=== PATIENT | male | born 2005 | race Caucasian/White ===

== ENCOUNTER 2025-02-02 20:02 | Emergency (ER) | payer BC, SELFPAY ==
[2025-02-02 20:10] VITALS: BP 151/89; PULSE 102; TEMP 36.4; O2SAT 100; BMI 24.4
--- NOTE | 2025-02-02 20:22 | ED_ITS ---
HPI HPI - General Adult General Chief complaint: Headache Stated complaint: HEADACHE Time Seen by Provider: 02/02/25 20:03 Source: patient Mode of arrival: walk-in Limitations: no limitations History of Present Illness HPI narrative: Patient is a 19-year-old male who states he has been having migraine headaches for the last year and a half. He presents to the ER with a breakthrough heada bradley that was unrelieved with Imitrex x 2 at home. He states he can typically manage the migraines at home and has never needed to come to the emergency department previously for management of his pain. He is noted to have an upcoming order for an MRI next month, he states he has never had imaging of his brain. His PCP has been managing the migraine headaches at home for him. He denies any fevers, upper respiratory symptoms, neck pain, peripheral paresthesias. He reports 1 episode of vomiting. Related Data Home Medications ?Medication ?Instructions ?Recorded ?Confirmed sumatriptan succinate 100 mg tablet 100 mg PO Q2H PRN migraine headache 02/02/25 02/02/25 topiramate 25 mg tablet 50 mg PO QDAY 02/02/25 02/02/25 Previous Rx's ?Medication ?Instructions ?Recorded diphenhydramine HCl 25 mg capsule 25 mg PO Q6H PRN headache #20 caps 02/02/25 (Benadryl) ketorolac 10 mg tablet 10 mg PO TID PRN pain #10 tabs 02/02/25 metoclopramide HCl 10 mg tablet 10 mg PO Q6H PRN nausea and 02/02/25 (Reglan) vomiting #12 tabs Allergies Allergy/AdvReac Type Severity Reaction Status Date / Time No Known Drug Allergies Allergy Verified 02/02/25 20:08 Opioid HPI Opioid Management Most Recent Opioid Data: Last Pain Scale 10 02/02/25 20:30 02/02/25 Review of Systems ROS Constitutional Denies: fever or chills Eyes Denies: change in vision Ears, nose, mouth, and throat Denies: throat pain or nasal congestion Respiratory Denies: shortness of breath or cough Gastrointestinal Reports: nausea and vomiting Integumentary/Breast Denies: rash Neurological Reports: headache; Denies: numbness in extremities or weakness in extremities Hematologic/Lymphatic Denies: easy bruising or easy bleeding PFS PFS Social History Little interest or pleasure in doing things: not at all Feeling down, depressed, or hopeless: not at all Exam Narrative Exam Narrative: Gen.: Awake, alert, in no distress Head: Normocephalic, atraumatic ENT: Moist mucous membranes, no nuchal rigidity or meningismus Respiratory: No respiratory distress, lungs clear bilaterally Cardio: Regular rate and rhythm Extremities: Moves extremities equally Psych: Normal mood and affect Neuro: No focal neuro deficit Skin: Warm, dry, intact Constitutional Vital Signs, click to edit/add: Last Vital Signs Temp 97.6 F 02/02/25 20:10 Pulse 102 H 02/02/25 20:10 Resp 18 02/02/25 20:10 BP 151/89 H 02/02/25 20:10 Pulse Ox 100 02/02/25 20:10 O2 Del Method Room Air 02/02/25 20:10 Course Vital Signs Vital signs: Vital Signs Temperature 97.6 F 02/02/25 20:10 Pulse Rate 102 H 02/02/25 20:10 Respiratory Rate 18 02/02/25 20:10 Blood Pressure 151/89 H 02/02/25 20:10 Pulse Oximetry 100 02/02/25 20:10 Oxygen Delivery Method Room Air 02/02/25 20:10 Temperature 97.6 F 02/02/25 20:10 Pulse Rate 102 H 02/02/25 20:10 Respiratory Rate 18 02/02/25 20:10 Blood Pressure 151/89 H 02/02/25 20:10 Pulse Oximetry 100 02/02/25 20:10 Oxygen Delivery Method Room Air 02/02/25 20:10 Medical Decision Making [facility] Narrative Medical decision making narrative: I discussed with the patient that if he is having continuous migraines for the last 18 months, up to twice a week, he should have screening imaging to make sure that there is no other acute pathology causing his headaches. He is agreeable to a CT scan and will follow-up for his MRI as scheduled. Patient was ordered to have IV fluids, Reglan, Benadryl, Toradol. CT is unremarkable. Patient reports feeling much better. He was given Fioricet in the ER and 1 to go for home. Follow-up for MRI as scheduled and return to [facility] emergency department if symptoms change or worsen SUPERVISED APC VISIT, PHYSICIAN ATTESTATION: Based on the medical record the care appears appropriate. ? Medical Records Medical records reviewed: Yes I reviewed the patient's medical records Discharge Plan Discharge Chief Complaint: Headache Clinical Impression: Headache Patient Disposition: Home, Self-Care Time of Disposition Decision: 21:49 Condition: Good Prescriptions / Home Meds: New diphenhydramine HCl [Benadryl] 25 mg capsule 25 mg PO Q6H PRN (Reason: headache) Qty: 20 0RF ketorolac 10 mg tablet 10 mg PO TID PRN (Reason: pain) Qty: 10 0RF metoclopramide HCl [Reglan] 10 mg tablet 10 mg PO Q6H PRN (Reason: nausea and vomiting) Qty: 12 0RF No Action sumatriptan succinate 100 mg tablet 100 mg PO Q2H PRN (Reason: migraine headache) topiramate 25 mg tablet 50 mg PO QDAY Print Language: Macedonian Instructions: Acute Headache (ED) Referrals: Physician,Non-Staff, [Physician] - 1 week Discharge Date/Time: 02/02/25 22:08
[2025-02-02] MEDS: 0.9 % SODIUM CHLORIDE 1,000 ML 1000 ML IV (20:35)
[2025-02-02] MEDS: DIPHENHYDRAMINE HCL 50 MG/ML VIAL 25 MG IVP (20:36)
[2025-02-02] MEDS: KETOROLAC TROMETHAMINE 30 MG/ML VIAL IVP (20:36)
[2025-02-02] MEDS: METOCLOPRAMIDE HCL 10 MG/2 ML VIAL IVP (20:36)
[2025-02-02] MEDS: BUTALB/ACETAMINOPHEN/CAFFEINE 50-325-40MG TABLET 1 TAB PO ×2 (21:59→22:03)
== END 2025-02-02 22:08 | disposition home or self-care (01) ==
PROVIDERS: Emergency Provider Emergency Medicine; PCP Nurse Practitioner
DX: R51.9 Headache, unspecified (principal)
CPT/HCPCS: 70450; 96361; 96374; 96375; 99285; J1200; J1885; J2765

== ENCOUNTER 2025-02-10 09:43 | Outpatient (OUT) | payer BC, SELFPAY ==
--- NOTE | 2025-02-10 09:47 | MR_ITS ---
The [address] [address] Patient Name: KEV GÓMEZ MRN: [id number] date: 2005 Sex: M Assigned Patient Location: MRI Current Patient Location: MRI Accession/Order Number: [id number] Exam Date: 02/10/2025 10:59 Report Date: 02/10/2025 11:17 At the request of: COLTON ANDINO Procedure: MR head/brain wo con EXAMINATION: MRI OF THE BRAIN WITHOUT CONTRAST CLINICAL HISTORY: Intractable Chronic Migraine COMPARISON: CT 02/02/2025 TECHNIQUE: Multiecho, multiplanar imaging of the brain was performed without enhancement. The ventricles are normal in size and position. A single tiny focus of increased T2 and FLAIR signal seen within the subcortical white matter the right frontal lobe. This is nonspecific though can be seen with migraine headaches. There are no additional areas of abnormal signal intensity within the supra- or infratentorial brain. No restricted diffusion is identified to suggest a recent ischemic event. There are no extra-axial collections or mass effect. There is minimal left maxillary and ethmoid mucosal thickening. MR/MR head/brain wo con IMPRESSION: MINIMAL NONSPECIFIC RIGHT FRONTAL WHITE MATTER CHANGE. NO OTHER ACUTE INTRACRANIAL FINDINGS. Impression dictated by: Silvia Garcia M.D.02/10/2025 11:17 AM Dictation Location: [place] [address] Electronically authenticated by: [id number] Y Date: 02/10/2025 11:17
--- OUTSIDE RECORDS SUMMARY | 2025-02-10 09:47 | XMS_ITS | CCD ---
Author Organization 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 Name Role Phone PHYSICIAN, DEFAULT Admitting Unavailable PHYSICIAN, DEFAULT Attending Unavailable BILL HURT Admitting Unavailable BLU, BILL Weinstein Attending Unavailable RADHAMES ORTIZ Referring Unavailable RAFITA MARCH Primary Care Unavailable DC Procedure Practitioner Unavailab BILL Marte Surgeon Unavailable DC Procedure Practitioner Unavailab SANDEE Jarrell Surgeon Unavailable BILL HURT Admitting Unavailable BILL HURT Attending Unavailable BILL HURT Referring Unavailable RAFITA MARCH Primary Care Unavailable RAFITA MARCH Primary Care Unavailable STACEY, DR RAFITA Flood Attending Unavailable MARCH, DR RAFITA Flood Primary Care Unavailable MARCH, DR RAFITA Flood Admitting Unavailable MARCH, DR RAFITA Flood Admitting Unavailable MARCH, DR RAFITA Flood Attending Unavailable MARCH, DR RAFITA Flood Consulting Unavailable MARCH, DR RAFITA Flood Primary Care Unavailable ZIEBER, DR MANDEEP Bridges Consulting Unavailable KIN CHRISTIANSON Admitting Unavailable MISC, DR BAKER Primary Care Unavailable MEGHAN KIN Attending Unavailable Tyson Pires Unavailable Sigrid Lee Unavailable Cassandra Allen Unavailable NONE, XXXX Primary Care Physician Unavailab Ally Zafar Unavailable MD Rafita March Primary Care Provider DO Yakov Sanchez Attending Provider Yakov Sanchez Attending Unavailable Yakov Sanchez Admitting Unavailable Rafita March Primary Care Unavailable Natacha Henriquez Primary Care Physician [phone] Natacha Henriquez MD Unavailable Lorrie Toussaint DO Unavailable Nolvia Nice NP Unavailable Provider, None Primary Care Unavailable Trini Hernandez Attending Unavailable Rashard Freeman Attending Unavailable Natacha Henriquez Attending Unavailable Natacha Henriquez Attending Unavailable Natacha Henriquez Attending Unavailable Trini Hernandez Admitting Unavailable Trini Hernandez Attending Unavailable Unallocated MD, Noms Provider Primary Care Provi dena NOLVIA NICE Attending Unavailable LORRIE TOUSSANIT Attending Unavailable NATACHA HENRIQUEZ Referring Unavailable LORRIE TOUSSAINT Attending Unavailable NOLVIA NICE Attending Unavailable Allergies Allergy Classification Reported Allergen(s) Allergy Type Date of Onset Reaction(s) Facility (2 sources) bee venom Drug allergy (disorder) 0 [facility] Repository (5 sources) Bee/Wasp/Ant venom Propensity to adverse reactions Unknown [facility] Other (5 sources) Seasonal allergy Propensity to adverse reactions Unknown [facility] Other (2 sources) venom-honey bee; Translations: [venom-honey bee] Allergy to substance 1 Anaphylaxis [facility] (8 sources) Honey bee venom Allergy to substance 4 Unknown [facility] (1 source) No Known Medication Allergies; Translations: [No Known Medication Allergies] Propensity to adverse reactions (disorder) [facility] Repository Medications Current Medications Medication Drug Class(es) Dates Sig (Normalized) Sig (Original) amitriptyline hydrochloride 25 mg oral tablet (14 sources) Tricyclic Antidepressant Start: 09-22-2024 End: 01-21-2025 take 2 tablets by mouth once at bedtime amitriptyline (Elavil) 25 MG tablet Indications: Intractable chronic migraine without aura and without status migrainosus (CMS/HCC) 2 po q hs 90 tablet 1 09/22/2024 01/21/2025 Discontinued (Therapy completed) Start: 09-01-2024 amitriptyline Oral, Refills(s) 0 Start Date: 09/01/24 Status: Ordered Start: 07-21-2024 End: 07-21-2025 take 1 tablet by mouth once daily amitriptyline (Elavil) 25 MG tablet Indications: Intractable chronic migraine without aura and without status migrainosus (CMS/HCC) , Tension headache Take 1 tablet (25 mg) by mouth Daily 90 tablet 1 09/02/2024 09/22/2024 Discontinued (Reorder) amoxicillin 875 mg oral tablet (2 sources) Penicillin-class Antibacterial Start: 05-04-2023 take 1 tablet by mouth every twelve hours Amoxicillin 875 MG 1 tablet Orally Twice a day for 10 day(s) Apr, Active Start: 12-03-2022 take 1 capsule by [facility] every eight hours Amoxicillin 500 MG 1 capsule Orally three times a day for 10 day(s) Nov, Active brompheniramine maleate 0.4 mg/ml / dextromethorphan hydrobromide 2 mg/ml / pseudoephedrine hydrochloride 6 mg/ml oral solution (2 sources) alpha-Adrenergic Agonist, Uncompetitive T-prajfh-E-aspartate Receptor Antagonist, Sigma-1 Agonist Start: 10-22-2024 End: 10-27-2024 take 10 mL by mouth four times daily Bromfed DM oral syrup 10 mL, Oral, QID for 5 day(s), 200 mL, Refill(s) 0, [facility]/pharmacy #[id number], 182, cm, 10/22/24 10:47:00 EST, Height/Length Dosing, 87.1, kg, 10/22/24 10:47:00 EST, Weight Dosing Start Date: 10/22/24 Stop Date: 10/27/24 Status: Ordered ciprofloxacin 2 mg/ml otic solution (1 source) Quinolone Antimicrobial Start: 01-26-2022 Ciprofloxacin HCl 0.2 % 1-2 drops into affected ear Otic every 12 hrs for 7 day(s) Jan, Active diclofenac sodium 0.01 mg/mg topical gel (1 source) Nonsteroidal Anti-inflammatory Drug Start: 12-25-2021 Diclofenac Sodium 1 % apply 1-2 grams to left wrist Externally BID for 30 days Dec, Active fluticasone propionate 0.05 mg/actuat metered dose nasal spray (1 source) Corticosteroid Start: 01-26-2022 take 1 spray(s) nasal route once daily Fluticasone Propionate 50 MCG/ACT 1 spray in each nostril Nasally Once a day for 14 day(s) Jan, Active Ibuprofen (2 sources) Nonsteroidal Anti-inflammatory Drug Ibuprofen Active methylPREDNISolone (5 sources) Corticosteroid Start: 01-21-2025 End: 01-28-2025 methylPREDNISolone (Medrol Dospak) 4 MG tablets Indications: Intractable chronic migraine without aura and without status migrainosus (CMS/HCC) Follow schedule on package instructions 21 tablet 01/21/2025 01/28/2025 Active Start: 06-13-2020 Depo-Medrol 80 mg Jun, 80 mg ondansetron 4 mg disintegrating oral tablet (2 sources) Serotonin-3 Receptor Antagonist Start: 01-21-2025 ondansetron ODT (Zofran-ODT) 4 MG disintegrating tablet Indications: Intractable chronic migraine without aura and without status migrainosus (CMS/HCC) Take one tab every 8 hours as needed for migraine associated nausea and vomiting 20 tablet 01/21/2025 Active Start: 01-21-2025 ondansetron OD T (Zofran-ODT) 4 MG disintegrating tablet Indications: Intractable chronic migraine without aura and without status migrainosus (CMS/HCC) Take one tab every 8 hours as needed for migraine associated nausea and vomiting 20 tablet 01/21/2025 Active predniSONE 20 mg oral tablet (2 sources) Start: 10-22-2024 End: 10-27-2024 take 2 tablets by mouth once daily at mealtime predniSONE 20 mg Tab 40 mg = 2 tab(s), Oral, Daily, with food or milk, X 5 day(s), # 10 tab(s), Refills(s) 0, Pharmacy: [facility]/pharmacy #[id number], 182, cm, 10/22/24 10:47:00 EST, Height/Length Dosing, 87.1, kg, 10/22/24 10:47:00 EST, Weight Dosing Start Date: 10/22/24 Stop Date: 10/27/24 Status: Ordered SUMAtriptan 100 mg oral tablet (20 sources) Serotonin-1b and Serotonin-1d Receptor Agonist Start: 10-15-2024 End: 11-24-2024 SUMAtriptan (Imitrex) 100 MG tablet Indications: Intractable chronic migraine without aura and without status migrainosus (CMS/HCC) 1 at the onset of the migraine and may repeat in 2 hours if needed max 2 days per week 2 doses per day 9 tablet 5 11/24/2024 Active Start: 09-22-2024 End: 01-21-2025 SUMAtriptan (Imitrex) 20 MG/ ACT nasal spray Indications: Intractable chronic migraine without aura and without status migrainosus (CMS/HCC) 1 spray in 1 nostril at onset of migraine may repeat in other nostril in 2 hours if needed max 2 days per week. 6 each 2 09/22/2024 01/21/2025 Discontinued (Therapy completed) Start: 09-02-2024 SUMAtriptan (I mitrex) 100 MG tablet Indications: Intractable chronic migraine without aura and without status migrainosus (CMS/HCC) , Tension headache 1 at the onset of the migraine and may repeat in 2 hours if needed max 2 days per week 2 doses per day 9 tablet 2 09/02/2024 Active Start: 09-01-2024 sumatriptan Or al, Refills(s) 0 Start Date: 09/01/24 Status: Ordered Start: 07-21-2024 SUMAtriptan (I mitrex) 100 MG tablet Indications: Intractable chronic migraine without aura and without status migrainosus (CMS/HCC) , Tension headache 1 at the onset of the migraine and may repeat in 2 hours if needed max 2 days per week 2 doses per day 9 tablet 2 07/21/2024 Active Start: 07-21-2024 SUMAtriptan (I mitrex) 100 MG tablet Indications: Intractable chronic migraine without aura and without status migrainosus (CMS/HCC) , Tension headache 1 at the onset of the migraine and may repeat in 2 hours if needed max 2 days per week 2 doses per day 9 tablet 2 07/21/2024 Active tiZANidine 4 mg oral tablet (5 sources) Central alpha-2 Adrenergic Agonist Start: 11-24-2024 tiZANidine (Zanaflex) 4 MG tablet Indications: Intractable chronic migraine without aura and without status migrainosus (CMS/HCC) Take 1/2-1 at bedtime 30 tablet 5 11/24/2024 Active topiramate 25 mg oral tablet (4 sources) Start: 01-21-2025 End: 01-21-2026 take 1 tablet by mouth once at bedtime topiramate (Topamax) 25 MG tablet Indications: Intractable chronic migraine without aura and without status migrainosus (CMS/HCC) Topamax tablet 25mg every hs X1 week, then 2 pills every hs X1 week ,then 3 pills po every hs X1 week , then go to the 100 mg 42 tablet 01/21/2025 01/21/2026 Active Start: 01-21-2025 topiramate (To pamax) 100 MG tablet Indications: Intractable chronic migraine without aura and without status migrainosus (CMS/HCC) Take one tab at bedtime after titrated up 30 tablet 2 01/21/2025 Active Start: 01-21-2025 topiramate (To pamax) 100 MG tablet Indications: Intractable chronic migraine without aura and without status migrainosus (CMS/HCC) Take one tab at bedtime after titrated up 30 tablet 2 01/21/2025 Active traMADol hydrochloride 50 mg oral tablet (1 source) Opioid Agonist Start: 11-07-2021 take 50 mg by mouth every four hours Tramadol Active 50 MG PO Q4H 20 7 November 07, 2021 1:00am ubrogepant 100 mg oral tablet (5 sources) Start: 11-24-2024 Ubrogepant (Ubrelvy) 100 MG tablet Indications: Intractable chronic migraine without aura and without status migrainosus (CMS/HCC) Take one tab at migraine onset, may repeat in 2 hours if needed 10 tablet 5 11/24/2024 Active Completed/Discontinued Medications Medication Drug Class(es) Dates Sig (Normalized) Sig (Original) ISOtretinoin 30 mg oral capsule (1 source) Retinoid Start: 11-06-2019 End: 11-07-2021 take 1 capsule by mouth twice daily Isotretinoin (Absorica) 30 mg capsule Discontinued 30 MG PO Twice daily November 06, 2019 1:00am November 07, 2021 7:56am Problems Active Problems Problem Classification Problem Date Documented Date Episodic/Chronic Headache; including migraine (12 sources) Chronic intractable migraine without aura; Translations: [Chronic migraine without aura, intractable, without status migrainosus] 09-22-2024 Chronic Joint disorders and dislocations; trauma-related (5 sources) Patellofemoral syndrome of right knee; Translations: [Patellofemoral disorders, right knee] Chronic Malaise and fatigue (4 sources) Other fatigue; Translations: [Fatigue] Onset: 04-03-2022 10-01-2023 Episodic Open wounds of extremities (1 source) Laceration of hand without foreign body; Translations: [Laceration without foreign body of unspecified hand, initial encounter] Onset: 11-05-2023 Episodic Other lower respiratory disease (1 source) Cough; Translations: [Acute cough] Onset: 10-22-2024 Episodic Other lower respiratory disease (1 source) Dyspnea; Translations: [Shortness of breath] Onset: 10-22-2024 Episodic Other nervous system disorders (6 sources) Circadian rhythm sleep disorder of shift work type; Translations: [Circadian rhythm sleep disorder, shift work type] 09-22-2024 Chronic Other nutritional; endocrine; and metabolic disorders (3 sources) Overweight in adulthood with body mass index of 25 or more but less than 30; Translations: [Body mass index (BMI) 27.0-27.9, adult] Onset: 10-22-2024 09-01-2024 Episodic Other upper respiratory disease (3 sources) Seasonal allergy 10-01-2023 Chronic Other upper respiratory infections (11 sources) Acute recurrent maxillary sinusitis; Translations: [Acute pharyngitis, unspecified] Onset: 03-28-2022 Episodic Residual codes; unclassified (1 source) Past history of procedure; Translations: [Other specified postprocedural states] 11-07-2021 Episodic Residual codes; unclassified (6 sources) Sleep deprivation; Translations: [Sleep deprivation] 09-22-2024 Episodic Residual codes; unclassified (4 sources) Inadequate sleep hygiene; Translations: [Inadequate sleep hygiene] 07-21-2024 Episodic Unclassified (1 source) INSTABILITY OF RIGHT SHOULDER BOBBY Onset: 04-03-2018 Unclassified (1 source) INSTABILITY OF RIGHT SHOULDER JOINT Onset: 04-03-2018 Unclassified (3 sources) CONTACT W/AND (SUSP) EXPOS COVID-19; Translations: [CONTACT W/AND (SUSP) EXPOS COVID-19] Onset: 09-08-2021 Unclassified (2 sources) Body mass index 20-24 - normal 01-20-2023 Unclassified (1 source) Encounter for immunization; Translations: [Encounter for immunization] Onset: 08-12-2023 Unclassified (3 sources) Patient encounter status 11-21-2023 Past or Other Problems Problem Classification Problem Date Documented Date Episodic/Chronic Headache; including migraine (2 sources) Chronic daily headache; Translations: [Chronic daily headache] 07-21-2024 Episodic Other connective tissue disease (1 source) Incomplete rotator cuff tear or rupture of right shoulder, not specified as traumatic; Translations: [INCOMPLETE ROTATR-CUFF TEAR/RUPTR OF R SHOULDER, NOT TRAUMA] Onset: 04-03-2018 Episodic Other connective tissue disease (1 source) Impingement syndrome of right shoulder; Translations: [IMPINGEMENT SYNDROME OF RIGHT SHOULDER] Onset: 04-03-2018 Episodic Other connective tissue disease (2 sources) Ganglion, left wrist Onset: 10-18-2021 Resolved: 12-25-2021 Episodic Other non-traumatic joint disorders (4 sources) Other instability, right shoulder; Translations: [OTHER INSTABILITY, RIGHT SHOULDER] Onset: 04-03-2018 Episodic Other non-traumatic joint disorders (2 sources) Pain in left wrist Onset: 10-18-2021 Resolved: 12-25-2021 Episodic Other skin disorders (2 sources) Localized swelling, mass and lump, left upper limb Onset: 10-18-2021 Resolved: 12-25-2021 Episodic Otitis media and related conditions (2 sources) Unspecified perforation of tympanic membrane, right ear; Translations: [Other acute nonsuppurative otitis media, bilateral] Onset: 01-26-2022 Resolved: 01-26-2022 Episodic Residual codes; unclassified (1 source) Other specified postprocedural states Onset: 12-25-2021 Resolved: 12-25-2021 Episodic Sprains and strains (1 source) Superior glenoid labrum lesion of right shoulder, initial encounter; Translations: [SUPERIOR GLENOID LABRUM LESION OF RIGHT SHOULDER, INIT] Onset: 04-03-2018 Episodic Unclassified (1 source) CONTACT W/AND (SUSP) EXPOS COVID-19; Translations: [CONTACT W/AND (SUSP) EXPOS COVID-19] Onset: 09-04-2021 Results Test Name Value Interpretation Reference Range Facility Ambulatory Visit Summaryon 0 01-16-2025 Ambulatory Visit Summary Ambulatory Visit Summary MARCO GÓMEZ :2005 Visit Date:01/16/2025 Ambulatory Visit Instructions Your Diagnosis Skin rash, Skin rash Your Care Team Attending Physician - Pete HERNANDEZ, Rashard Fajardo Primary Care Physician - Natacha Pringle This Is Your Medications List cephalexin (Keflex 500 mg Cap) mupirocin topical (mupirocin Top 2% Oint) predniSONE (predniSONE 20 mg Tab) Contact prescribing physician if questions or concerns sumatriptan tizanidine (tiZANidine 4 mg Tab) Procedures Performed Meniscal repair, Rotator cuff repair, Tonsillectomy. Discharge Vitals Temperature (Oral) 36.8 ???C Heart Rate (Peripheral) 54 Respiratory Rate 16 Blood Pressure 124/76 Height 182 cm Height 72 in Weight 82.4 kg Weight 181.661 lb BMI 24.88 Medications What How Much When Why Instructions New cephalexin (Keflex 500 mg Cap) 1 Capsules By Mouth Every 8 hours Skin rash Duration: 7 Days Pickup at [facility]/pharmacy #[id number] New mupirocin topical (mupirocin Top 2% Oint) 1 Application Topical 3 times a day Skin rash Duration: 7 Days Pickup at [facility]/pharmacy #[id number] New predniSONE (predniSONE 20 mg Tab) 2 Tablets By Mouth Every day Skin rash Duration: 5 Days Pickup at [facility]/pharmacy #[id number] Unchanged sumatriptan By Mouth Contact prescribing physician if questions or concerns Unchanged tizanidine (tiZANidine 4 mg Tab) Contact prescribing physician if questions or concerns Pharmacy Information [facility]/pharmacy #[id number]: [address] [place], [place] [id number] [phone] Allergies Bee Stings (Rash) Problems Ongoing - Any problem that you are currently receiving treatment for. BMI 27.0-27.9,adult Fatigue Seasonal allergies Wellness examination Patient Survey You may receive a survey via text or e-mail asking about your office visit. Please share your experience with us by completing your survey. We appreciate your feedback and thank you for choosing us for your care. Normal [facility] Family Medicine Office/Clini c Noteon 01-16-2025 Family Medicine Office/Clinic Note Family Medicine Office/Clinic Note Chief Complaint rash HPI Staff 19 year old male presents for a rash, pt has multiple red spots located on his abdomen, back and one on his face. Pt states that he woke up today with the worse migraine that he has ever had but he is not currently in pain. Symptom onset: 12 hours ago Location: face, back, abdomen Itch/Pain: itchy, spots burned when pt took a shower today Treatments: no Ever had in past?: no Change in soaps, detergents, exposures: no History of Present Illness I have reviewed and verified the staff HPI to be accurate for this encounter. Portions of this record have been created with voice recognition software. Occasional wrong-word or ???rhhjn-[id number]??? substitutions may have occurred due to the inherent limitations of voice recognition software. 19 yo male with history of headache presents today with cc of rash. Patient states onset approximately 12 hours ago. States that rash is located on his face and back and abdomen states are small raised red bump like lesions that are itchy. States they seem to burn when he got in the shower today. Has not tried any [id number]-[id number] medications or treatment. Has never had similar rash in the past. No changes in soaps lotions detergents. No recent medications no new medication exposures. 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 Patient states he did discharge somebody yesterday with shingles. Does not believe that he has shingles. States that yesterday was his first day states he had his patient taken her his bad states he did not have the rash on the right side of the nose did not have any rash in general until approximately 12 hours ago. States it is mostly itching in nature states the area on the right side of the nose appeared to be a pimple-like lesion which he tried squeezing it this morning but she states it drained some and now appears to be scabbed. States that lesions on the anterior chest and the upper portions of his back appear to be scabbed but states he did not scratch them. Denies any drainage. States a history of migraine headaches is prescribed sumatriptan by his PCP states he did wake with a headache this morning but denies any sore throat runny stuffy nose or recent viral-like illness. Denies fever or chills. He has no other concerns at this time. Review of Systems PHQ Score Initial Depression Screen Score: 0 SCORE ROS negative unless otherwise stated in HPI. Physical Exam Vitals & Measurements T: 36.8 ???C(Oral) HR: 54(Peripheral) RR: 16 BP: 124/76 SpO2: 99% HT: 72 in HT: 182 cm WT: 82.4 kg WT: 181.661 lb BMI: 24.88 General: Well developed, well nourished, in no acute distress Eyes: not assessed Ears: not assessed Nose: not addressed Mouth: not assessed Neck: not assessed Lungs: Lung sounds are clear bilaterally. No wheezing rhonchi or crackles on exam Cardio: S1, S2, regular rhythm. No murmurs gallops or rubs. Abdomen: not assessed Musculoskeletal: not assessed Extremity: not assessed Neurologic: not assessed Skin: Patient has a rash of the anterior chest which is sporadic small raised erythematous bump like lesions that appear to be scabbed with slight surrounding erythema no underlying induration no warmth fluctuance or concern for cellulitis abscess or infection. Patient has similar lesions on the upper back approximately 5 again appear to be scabbed over no yellow crusted lesions area on the right side of the nose which patient states he noticed this morning which appeared to be similar. No hives or urticarial type rash no blistering or vesicular lesions rash is not painful patient states rash is pruritic. Mental Status: Alert and oriented x3. Normal mood and affect Assessment/Plan I spoke with patient regards to rash discussed that he complains that it is itching. Discussed that rashes can be caused by multiple things that I be a contact dermatitis, bacterial, viral, fungal or allergy related. Patient has not changed any soaps lotions or detergents. No recent medications no new food exposures. Discussed that since he is on the nursing feels that the skin of the lesions may be like early staph in which we could cover him with also antibiotic Keflex 3 times daily x 7 days duration we will also send mupirocin topical ointment discussed with patient to use first on the nose lesion 3 times daily x 7 days duration to see if this has improvement if it does he can use it on the other superficial lesions of the upper back and anterior chest. Otherwise if no improvement in the next 48 hours of the symptoms he should follow closely with PCP or contact the office to let me know. Patient agrees and understands plan of care otherwise may return if needed. 1. Skin rash, (R21: Rash and other nonspecific skin eruption)Skin rash See above. Ordered: cephalexin, 500 mg = 1 cap(s), Oral, q8hr, X 7 day(s), # 21 cap(s), Refills(s) 0, Pharm (more content not included)... Normal [facility] Comment on above: Result Comment: Elec tronically Signed By: Pete HERNANDEZ, Rashard Fajardo\.br\Date and Time Signed: 01/16/25 14:45 EST Lab - Toxicology Resultson 0 01-04-2025 Lab - Toxicology Results [id number] Normal [facility] QuantiFERON-TB Gold Pluson 0 01-02-2025 QuantiFERON Incubation Incubation performed. Invalid Interpretation Code [facility] Comment on above: Result Comment: Perf ormed At: [address] [id number] Joellen Herron PhD Ph:[phone] Performed By: #### 2 [id number] #### [facility] (DEFAULT) [address] [place] [address] QuantiFERON-TB Gold Plus Negative Invalid Interpretation Code Negative [facility] Comment on above: Result Comment: No r esponse to M tuberculosis antigens detected. Infection with M tuberculosis is unlikely, but high risk individuals should be considered for additional testing (ATS/IDSA/CDC Clinical Practice Guidelines, 2017). The reference range is an Antigen minus Nil result of <0.35 IU/mL. Chemiluminescence immunoassay methodology Performed At: [address] [id number] Joellen Herron PhD Ph:[phone] Performed By: #### 7 [id number] #### [facility] (DEFAULT) [address] [place] [address] HBSab Qnt LCon 01-01-2025 Hep B Surf Ab Quant LC <3.5 Low Immunity>10 [facility] Comment on above: Result Comment: Stat us of Immunity Anti-HBs Level Inconsistent with Immunity 0.0 - 10.0 Consistent with Immunity >10.0 Performed At: [facility] [address] [place], [place] [id number] Joellen Herron PhD Ph:[phone] Performed By: #### 8 [id number] #### [facility] (DEFAULT) [address] [place] [id number] Measles/Mumps/Rubella Immuni ty LCon 01-01-2025 Mumps Abs, IgG LC <9.0 Low Immune >10.9 [facility] Comment on above: Result Comment: Nega tive <9.0 Equivocal 9.0 - 10.9 Positive >10.9 A positive result generally indicates past exposure to Mumps virus or previous vaccination. Performed At: [facility] [address] [place], [place] [id number] Joellen Herron PhD Ph:[phone] Performed By: #### 0 [id number] #### [facility] (DEFAULT) [address] [place] [id number] Rubella Antibodies, IgG LC 1.57 index Invalid Interpretation Code Immune >0.99 [facility] Comment on above: Result Comment: Non- immune <0.90 Equivocal 0.90 - 0.99 Immune >0.99 Performed By: #### 3 [id number], [id number] #### [facility] (DEFAULT) [address] [place] [id number] Rubeola Ab, IgG, EIA LC 163.0 AU/mL Invalid Interpretation Code Immune >16.4 [facility] Comment on above: Result Comment: Nega tive <13.5 Equivocal 13.5 - 16.4 Positive >16.4 Presence of antibodies to Rubeola is presumptive evidence of immunity except when acute infection is suspected. Performed By: #### 7 [id number], [id number] #### [facility] (DEFAULT) [address] [place] [id number] Triage Panel 1001-01-2025 Drug Screen Complete Collected Normal [facility] Comment on above: Performed By: #### 2 [id number] #### [facility] (DEFAULT) [address] [place] [address] Ambulatory Visit Summaryon 1 12-23-2023 Ambulatory Visit Summary Ambulatory Visit Summary MARCO GÓMEZ :2005 Visit Date:10/22/2024 Ambulatory Visit Instructions Your Diagnosis Acute cough SOB (shortness of breath) Viral URI with cough BMI 27.0-27.9,adult Your Care Team Attending Physician - Mary HERNÁNDEZ, Jaylin Primary Care Physician - Natacha Pringle This Is Your Medications List Contact prescribing physician if questions or concerns amitriptyline sumatriptan Procedures Performed Meniscal repair, Rotator cuff repair, Tonsillectomy. Discharge Vitals Temperature (Oral) 36.5 ???C Heart Rate (Peripheral) 63 Respiratory Rate 18 Blood Pressure 130/82 Height 182 cm Height 72 in Weight 87.1 kg Weight 192.022 lb BMI 26.3 What to do next You Need to Schedule the Following Appointments Follow Up with Natacha Pringle, [facility], [facility] When: Medications What How Much When Instructions Unchanged amitriptyline Contact prescribing physician if questions or concerns Unchanged sumatriptan Contact prescribing physician if questions or concerns Allergies No Known Allergies No Known Medication Allergies Problems Ongoing - Any problem that you are currently receiving treatment for. BMI 27.0-27.9,adult Fatigue Seasonal allergies Wellness examination Patient Survey You may receive a survey via text or e-mail asking about your office visit. Please share your experience with us by completing your survey. We appreciate your feedback and thank you for choosing us for your care. Normal [facility] Family Medicine Office/Clini c Noteon 10-22-2024 Family Medicine Office/Clinic Note Family Medicine Office/Clinic Note Chief Complaint productive cough, congestion HPI Staff 19 year old male presents with productive cough, SOB, fatigue onset 3 weeks OTC- day yuriy rowe claritin History of Present Illness I have reviewed and verified the staff HPI to be accurate for this encounter. Portions of this record have been created with voice recognition software. Occasional wrong-word or ???pvhlk-j-xoon??? substitutions may have occurred due to the inherent limitations of voice recognition software. 19-year-old male presents with complaints of 3 weeks of symptoms including productive cough, shortness of breath and fatigue. 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 For his symptoms he has been using vyld-kzi-cffdhri DayQuil, Sudafed and Claritin without much relief. Patient states he has had a lot of thick productive green mucus that he expectorates from his chest and it does not seem to be getting better. He denies any body aches, fever or chills. He denies any ear pain or sore throat. Review of Systems PHQ Score Initial Depression Screen Score: 0 SCORE ROS negative unless otherwise stated in HPI. Physical Exam Vitals & Measurements T: 36.5 ???C(Oral) HR: 63(Peripheral) RR: 18 BP: 130/82 SpO2: 97% HT: 72 in HT: 182 cm WT: 87.1 kg WT: 192.022 lb BMI: 26.3 General: Well developed, well nourished, in no acute distress ill-appearing not toxic Eyes: not assessed Ears: No deformity or lesion of external ear. Canals and TM appear normal bilaterally. TM???s intact, not inflamed, with normal light reflex. Hearing grossly normal to conversational speech Nose: moderate nasal mucosa inflammation and edema clear nasal drainage Mouth: Mucous membranes moist. Normal oropharynx, and posterior pharynx without lesions or exudates. Tongue normal tonsils 1+ Neck: no adenopathy Lungs: Normal respiratory effort and clear but diminished lung sounds to auscultation no wheezing rales or rhonchi. Moist cough noted Cardio: regular rate and rhythm, no murmur Abdomen: not assessed Musculoskeletal: not assessed Extremity: not assessed Neurologic: not assessed Skin: No rashes, ulcerations, or suspicious lesions Mental Status: Alert and oriented x3. Normal mood and affect Assessment/Plan Based on symptoms for 3 weeks with diminished lung sounds, reported thick green phlegm, shortness of breath we will get a chest x-ray to rule out pneumonia. Chest x-ray was negative for pneumonia. Explained to patient he should increase his fluids to keep his mucous thin. We will prescribe Bromfed DM as he has nasal congestion with his cough. We also give him a course of steroids to help with inflammation and hopefully allow him to expectorate a little better. He did have a oxygen saturation of 100% when I checked it. Encouraged him to follow-up with primary care if he does not have improvement of his symptoms the next 3 to 5 days. He declined need for work note. 1. Viral URI with cough (J06.9: Acute upper respiratory infection, unspecified) Discussed exam and hx are consistent with viral illness. Advised of typical duration. Discussed antibiotics unfortunately do not treat viral illnesses, it will take time to run course- usually 7-14 days. Fluids/rest encouraged, PRN tylenol/ibuprofen for any pain. May use prescribed Bromfed-DM and prednisone milligrams daily with food x 5 days for symptomatic tx. Follow up with PCP if not improving over next 3-5 days or significantly worsening symptoms. Patient and/or parent verbalized understanding of tx plan. Ordered: brompheniramine/dextr omethorphan/PSE, 10 mL, Oral, QID for 5 day(s), 200 mL, Refill(s) 0, [facility] #[id number], 182, cm, 10/22/24 10:47:00 EST, Height/Length Dosing, 87.1, kg, 10/22/24 10:47:00 EST, Weight Dosing predniSONE, 40 mg = 2 tab(s), Oral, Daily, with food or milk, X 5 day(s), # 10 tab(s), Refills(s) 0, Pharmacy: [facility] #[id number], 182, cm, 10/22/24 10:47:00 EST, Height/Length Dosing, 87.1, kg, 10/22/24 10:47:00 EST, Weight Dosing 2. SOB (shortness of breath) (R06.02: Shortness of breath) Oxygen saturation was 100% we did prescribe a course of steroids as above. Patient should continue to drink plenty of fluids to help expectorate his secretions. Be sure to take frequent deep breaths. If you feel symptoms are becoming severe he should report to the emergency department. Ordered: brompheniramine/dextr omethorphan/PSE, 10 mL, Oral, QID for 5 day(s), 200 mL, Refill(s) 0, [id number], 182, cm, 10/22/24 10:47:00 EST, Height/Length Dosing, 87.1, kg, 10/22/24 10:47:00 EST, Weight Dosing predniSONE, 40 mg = 2 tab(s), Oral, Daily, with food or milk, X 5 day(s), # 10 tab(s), Refills(s) 0, Pharmacy: [facility]/pharmacy #[id number], 182, cm, 10/22/24 10:47:00 EST, Height/Length Dosing, 87.1, kg, 10/22/24 10:47:00 EST, Weight Dosing XR Chest 2 Views Follow-up With When Contact Information Natacha Pringle, FAM, MED Additional Instructions: (more content not included)... Normal [facility] Comment on above: Result Comment: Elec tronically Signed By: Jaylin Underwood\.br\Date and Time Signed: 10/22/24 11:46 EST XR Chest 2 Viewson XR Chest 2 Views Exam Date/Time: 10/22/2024 11:03 EST Reason for Exam: SOB , cough 3 weeks;Cough Report IMPRESSION: No acute radiographic abnormality. EXAMINATION: XR Chest 2 Views Clinical History: Cough. Shortness of breath. Comparison: None RESULT: No consolidation. No pleural effusion. No pneumothorax. Normal cardiomediastinal silhouette. No acute osseous findings. Ordering Provider: Trini Hernandez FINAL REPORT Dictated: 10/22/2024 11:22 am Lars Porter MD Signed (Electronic Signature): 10/22/2024 11:22 am Signed by: Lars Porter MD Transcribed by: TJ Technologist: SRF Technical Comments Radiation Dose: Ka,r in mGy = na DAP = na [facility] Ambulatory Visit Summaryon 1 Ambulatory Visit Summary Ambulatory Visit Summary MARCO GÓMEZ :2005 Visit Date:09/01/2024 Ambulatory Visit Instructions Your Care Team Attending Physician - Natacha Pringle Primary Care Physician - Natacha Pringle This Is Your Medications List amitriptyline sumatriptan Procedures Performed Meniscal repair, Rotator cuff repair, Tonsillectomy. Discharge Vitals Temperature (Temporal Artery) 36.9 ???C Heart Rate (Peripheral) 76 Respiratory Rate 18 Blood Pressure 122/84 Height 182.0 cm Height 72 in Weight 92.1 kg Weight 202.62 lb BMI 27.8 Medications What How Much When Instructions Unchanged amitriptyline Unchanged sumatriptan Allergies No Known Allergies No Known Medication Allergies Problems Ongoing - Any problem that you are currently receiving treatment for. BMI 24.0-24.9, adult Fatigue Seasonal allergies Wellness examination Patient Survey You may receive a survey via text or e-mail asking about your office visit. Please share your experience with us by completing your survey. We appreciate your feedback and thank you for choosing us for your care. Normal [address] [facility] Family Medicine Office/Clini c Noteon 09-01-2024 Family Medicine Office/Clinic Note Family Medicine Office/Clinic Note HPI Staff Marco is a 19 year old male presenting with wanting an allergy shot Onset: a month ago Nasal congestion: yes Nasal drainage: yes Ear complaints: no Itchy/watery eyes: watery Sneezing: yes Cough: no Headaches: yes ongoing History of Present Illness pt presents today for allergy shot. Review of Systems PHQ Score Initial Depression Screen Score: 0 SCORE Physical Exam Vitals & Measurements T: 36.9 ???C(Temporal Artery) HR: 76(Peripheral) RR: 18 BP: 122/84 SpO2: 97% HT: 72 in HT: 182.0 cm WT: 92.1 kg WT: 202.62 lb BMI: 27.8 General: alert, no acute distress ENMT: oral mucosa moist, no pharyngeal erythema or exudate, DEVYN canals pink and dry, red watery eyes Cardiovascular: regular rate and rhythm, normal peripheral perfusion Respiratory: Lungs CTA, respirations non labored Extremities: no deformity, no trauma Neurological: oriented x 4, LOC appropriate for age, CN II-XII intact, motor strength equal & normal bilaterally, speech normal Assessment/Plan 1. Seasonal allergies (J30.2: Other seasonal allergic rhinitis) pt presents today with allergy flare up. will give kenalog in office today. RTC as needed 2. BMI 27.0-27.9,adult (Z68.27: Body mass index [BMI] 27.0-27.9, adult) Orders: atogepant, 60 mg = 1 tab(s), Oral, Daily, # 30 tab(s), Refills(s) 5, [id number], cm, 07/07/24 11:31:00 EDT, Height/Length Dosing, 90, kg, 07/07/24 11:31:00 EDT, Weight Dosing rimegepant, 75 mg = 1 tab(s), Oral, Once, PRN Migraine headache, not to exceed 75 mg in 24 hours allow tablet to dissolve on tongue, # 10 tab(s), Refills(s) 1, [id number], cm, 07/07/24 11:31:00 EDT, Height/Length Dosing, 90, kg, 07/07/24 1... Follow-up No qualifying data available Problem List/Past Medical History Ongoing BMI 24.0-24.9, adult BMI 27.0-27.9,adult Fatigue Seasonal allergies Wellness examination Historical No qualifying data Procedure/Surgical History Meniscal repair, Rotator cuff repair, Tonsillectomy. Medications amitriptyline, Oral sumatriptan, Oral Allergies No Known Allergies No Known Medication Allergies Social History Alcohol - Denies Alcohol Use, 01/20/2023 Never., 09/01/2024 Substance Abuse - Denies Substance Abuse, 01/20/2023 Never., 09/01/2024 Tobacco Former smoker, quit more than 30 days ago, quit March 2024 Tobacco Use:., 09/01/2024 Family History Diabetes mellitus type 2: Father. Hyperlipidemia: Father. Immunizations Vaccine Date Status Comments influenza virus vaccine, inactivated 08/07/2024 Recorded influenza virus vaccine, inactivated 08/12/2023 Recorded influenza virus vaccine, inactivated 09/09/2022 Recorded SARSCoV2 mRNA(utfazmnkq-typk-q ucros) vac 06/06/2022 Recorded 2023-01-20: TPVALL SARSCoV2 mRNA(itkzpjlrz-vavt-m ucros) vac 05/16/2022 Recorded 2023-01-20: TPVALL meningococcal group B vaccine 09/15/2021 Recorded meningococcal group B vaccine 06/27/2021 Recorded 2024-06-10: DEYANIRA ARCEO RN meningococcal conjugate vaccine 06/27/2021 Recorded 2024-06-10: DEYANIRA ARCEO RN influenza virus vaccine, inactivated 10/12/2019 Recorded influenza virus vaccine, inactivated 09/02/2019 Recorded influenza virus vaccine, inactivated 08/30/2018 Recorded human papillomavirus vaccine 04/30/2017 Recorded diphtheria/pertussis, acel/tetanus adult 06/26/2016 Recorded meningococcal conjugate vaccine 06/26/2016 Recorded human papillomavirus vaccine 06/26/2016 Recorded influenza virus vaccine, inactivated 09/21/2015 Recorded Hep A, unspecified formulation 12/01/2009 Recorded varicella virus vaccine 06/02/2009 Recorded poliovirus vaccine, inactivated 06/02/2009 Recorded measles/mumps/rubella virus vaccine 06/02/2009 Recorded Hep A, unspecified formulation 06/02/2009 Recorded DTaP, unspecified formulation 06/02/2009 Recorded influenza virus vaccine, inactivated 09/21/2008 Recorded influenza virus vaccine, live, trivalent 09/05/2007 Recorded influenza virus vaccine, inactivated 10/02/2006 Recorded influenza virus vaccine, inactivated 12/04/2004 Recorded DTaP, unspecified formulation 12/04/2004 Recorded varicella virus vaccine 08/04/2004 Recorded measles/mumps/rubella virus vaccine 08/04/2004 Recorded diphth/hepB/pertussis ,acel/polio/tetanus 03/13/2004 Recorded poliovirus vaccine, inactivated 2003 Recorded DTaP, unspecified formulation 2003 Recorded diphth/hepB/pertussis ,acel/polio/tetanus 2003 Recorded hepatitis B pediatric vaccine [address] [facility] Comment on above: Result Comment: Elec tronically Signed By: Natacha Pringle\.br\Date and Time Signed: 09/01/24 14:59 EDT Family Medicine Office/Clini c Noteon 07-07-2024 Family Medicine Office/Clinic Note Family Medicine Office/Clinic Note HPI Staff Marco is a 18 year old male presenting with DAPHNEY- Ordered Quilipta qd and Nurtec for abortive measures. Discussion to Neuro if these meds do not help Headaches: Time of Onset: _ Location: not addressed _ _ _ Typical headache frequency: _ Prior headache work-up: not addressed _ _ He states these have not taking it all the way... Nurtec was the last dose. Quilipta was taken this morning still getting headache he believes they are tension headache and not migraines Getting tension headaches every other day History of Present Illness pt states the migraines are happening less. but still gets headaches almost daily Review of Systems PHQ Score Initial Depression Screen Score: 0 SCORE Physical Exam Vitals & Measurements T: 37.4 ?C(Temporal Artery) HR: 82(Peripheral) RR: 16 BP: 128/84 SpO2: 98% HT: 72 in HT: 182.0 cm WT: 90.0 kg WT: 198 lb BMI: 27.17 General: alert, no acute distress ENMT: oral mucosa moist, no pharyngeal erythema or exudate Cardiovascular: regular rate and rhythm, normal peripheral perfusion Respiratory: Lungs CTA, respirations non labored Extremities: no deformity, no trauma Neurological: oriented x 4, LOC appropriate for age, CN II-XII intact, motor strength equal & normal bilaterally, speech normal Assessment/Plan 1. Migraine (G43.909: Migraine, unspecified, not intractable, without status migrainosus) pt presents today for follow up on migraine headaches. since starting daily qulipta and nurtec as needed for abortive measures he states the migraines are much improved. but he is still getting headaches almost daily. will send referral to [facility] for further evaluation. RTC 3 months Ordered: atogepant, 60 mg = 1 tab(s), Oral, Daily, # 30 tab(s), Refills(s) 5, Pharmacy: [facility]/pharmacy #[id number], 182, cm, 07/07/24 11:31:00 EDT, Height/Length Dosing, 90, kg, 07/07/24 11:31:00 EDT, Weight Dosing atogepant, 60 mg = 1 tab(s), Oral, Daily, # 30 tab(s), Refills(s) 1, Pharmacy: [facility]/pharmacy #[id number], 182, cm, 06/11/24 9:00:00 EDT, Height/Length Dosing, 88.3, kg, 06/11/24 9:00:00 EDT, Weight Dosing rimegepant, 75 mg = 1 tab(s), Oral, Once, PRN Migraine headache, not to exceed 75 mg in 24 hours allow tablet to dissolve on tongue, # 10 tab(s), Refills(s) 1, Pharmacy: [facility]/pharmacy #[id number], 182, cm, 07/07/24 11:31:00 EDT, Height/Length Dosing, 90, kg, 07/07/24 1... rimegepant, 75 mg = 1 tab(s), Oral, Once, PRN Migraine headache, not to exceed 75 mg in 24 hours allow tablet to dissolve on tongue, # 9 tab(s), Refills(s) 1, Pharmacy: [facility]/pharm[facility] #[id number], 182, cm, 06/11/24 9:00:00 EDT, Height/Length Dosing, 88.3, kg, 06/11/24 9... [facility] External Ambulatory Referral 2. BMI 27.0-27.9,adult (Z68.27: Body mass index [BMI] 27.0-27.9, adult) BMI education given Ordered: [facility] External Ambulatory Referral 3. Former smoker (Z87.891: Personal history of nicotine dependence) continue not smoking Ordered: atogepant, 60 mg = 1 tab(s), Oral, Daily, # 30 tab(s), Refills(s) 5, [id number] 182, cm, 07/07/24 11:31:00 EDT, Height/Length Dosing, 90, kg, 07/07/24 11:31:00 EDT, Weight Dosing atogepant, 60 mg = 1 tab(s), Oral, Daily, # 30 tab(s), Refills(s) 1, [id number] 182, cm, 06/11/24 9:00:00 EDT, Height/Length Dosing, 88.3, kg, 06/11/24 9:00:00 EDT, Weight Dosing rimegepant, 75 mg = 1 tab(s), Oral, Once, PRN Migraine headache, not to exceed 75 mg in 24 hours allow tablet to dissolve on tongue, # 10 tab(s), Refills(s) 1, Pharmacy: [facility]/pharmacy #[id number], 182, cm, 07/07/24 11:31:00 EDT, Height/Length Dosing, 90, kg, 07/07/24 1... rimegepant, 75 mg = 1 tab(s), Oral, Once, PRN Migraine headache, not to exceed 75 mg in 24 hours allow tablet to dissolve on tongue, # 9 tab(s), Refills(s) 1, Pharmacy: [facility]/pharmacy #[id number], 182, cm, 06/11/24 9:00:00 EDT, Height/Length Dosing, 88.3, kg, 06/11/24 9... [facility] [place] External Ambulatory Referral Follow-up No qualifying data available Problem List/Past Medical History Ongoing BMI 24.0-24.9, adult Fatigue Seasonal allergies Wellness examination Historical No qualifying data Procedure/Surgical History Meniscal repair, Rotator cuff repair, Tonsillectomy. Medications Nurtec ODT 75 mg oral tablet, disintegrating, 75 mg= 1 tab(s), Oral, Once, PRN, 1 refills Qulipta 60 mg oral tablet, 60 mg= 1 tab(s), Oral, Daily, 5 refills Allergies No Known Allergies No Known Medication Allergies Social History Alcohol - Denies Alcohol Use, 01/20/2023 Substance Abuse - Denies Substance Abuse, 01/20/2023 Tobacco Former smoker, quit more than 30 days ago, quit march 2024 Tobacco Use:. Former vaping or e-cigarette use Smokeless Tobacco Use:. Household tobacco concerns: No., 07/07/2024 Family History Diabetes mellitus type 2: Father. Hyperlipidemia: Father. Immunizations Vaccine Date Status Comments influenza virus vaccine, inactivated 08/12/2023 Recorded influenza virus vaccine, inactivated 09/09/2022 Recorded S (more content not included)... [facility] Comment on above: Result Comment: Elec tronically Signed By: Natacha Pringle\.br\Date and Time Signed: 07/07/24 12:43 EDT Family Medicine Office/Clini c Noteon 06-11-2024 Family Medicine Office/Clinic Note Family Medicine Office/Clinic Note HPI Staff Marco is a 18 year old presenting with Headaches: Time of Onset: _ Started March Location: not addressed _ _ _ one taoism or the other always stitches every time he gets a headache Typical headache frequency: _ almost every day Prior headache work-up: not addressed _ _ He thinks it is because he works nights and doesn't get much sleep. He is part-time now but his sleep is still messed up. Tried Melatonin did not help up to 20 mg nightly. Tried Benadryl exhausted all day the next day Sumatriptan did not help Qualepta somewhat helped, Urbervle worked the best ( Got these from his mother to try) History of Present Illness pt presents today for migraines that are worsening and becoming more frequent Review of Systems PHQ Score Initial Depression Screen Score: 0 SCORE Physical Exam Vitals & Measurements T: 36.3 ?C(Temporal Artery) HR: 72(Peripheral) RR: 18 BP: 122/84 SpO2: 97% HT: 72 in HT: 182.0 cm WT: 88.3 kg WT: 194.26 lb BMI: 26.66 General: alert, no acute distress ENMT: oral mucosa moist, no pharyngeal erythema or exudate Cardiovascular: regular rate and rhythm, normal peripheral perfusion Respiratory: Lungs CTA, respirations non labored Extremities: no deformity, no trauma Neurological: oriented x 4, LOC appropriate for age, CN II-XII intact, motor strength equal & normal bilaterally, speech normal Assessment/Plan 1. Migraine (G43.909: Migraine, unspecified, not intractable, without status migrainosus) pt having 8-10 migraines per month. will order qulipta daily and nurtec as needed for abortive measures. pt will return in 4 weeks for follow up. discussed referral to neuro if these meds do not help. also discussed staying hydrated and trying to stay on a sleep schedule. 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 2. Former smoker (Z87.891: Personal history of nicotine dependence) continue not smoking Ordered: atogepant, 60 mg = 1 tab(s), Oral, Daily, # 30 tab(s), Refills(s) 1, [id number], cm, 06/11/24 9:00:00 EDT, Height/Length Dosing, 88.3, kg, 06/11/24 9:00:00 EDT, Weight Dosing rimegepant, 75 mg = 1 tab(s), Oral, Once, PRN Migraine headache, not to exceed 75 mg in 24 hours allow tablet to dissolve on tongue, # 9 tab(s), Refills(s) 1, [id number] 182, cm, 06/11/24 9:00:00 EDT, Height/Length Dosing, 88.3, kg, 06/11/24 9... 3. BMI 22.0-22.9, adult (Z68.22: Body mass index [BMI] 22.0-22.9, adult) bmi education Ordered: atogepant, 60 mg = 1 tab(s), Oral, Daily, # 30 tab(s), Refills(s) 1, [id number] 182, cm, 06/11/24 9:00:00 EDT, Height/Length Dosing, 88.3, kg, 06/11/24 9:00:00 EDT, Weight Dosing rimegepant, 75 mg = 1 tab(s), Oral, Once, PRN Migraine headache, not to exceed 75 mg in 24 hours allow tablet to dissolve on tongue, # 9 tab(s), Refills(s) 1, [id number] 182, cm, 06/11/24 9:00:00 EDT, Height/Length Dosing, 88.3, kg, 06/11/24 9... Follow-up No qualifying data available Problem List/Past Medical History Ongoing BMI 22.0-22.9, adult BMI 24.0-24.9, adult Fatigue Migraine Seasonal allergies Wellness examination Historical No qualifying data Procedure/Surgical History Meniscal repair, Rotator cuff repair, Tonsillectomy. Medications Nurtec ODT 75 mg oral tablet, disintegrating, 75 mg= 1 tab(s), Oral, Once, PRN, 1 refills Qulipta 60 mg oral tablet, 60 mg= 1 tab(s), Oral, Daily, 1 refills Allergies No Known Allergies No Known Medication Allergies Social History Alcohol - Denies Alcohol Use, 01/20/2023 Substance Abuse - Denies Substance Abuse, 01/20/2023 Tobacco Former smoker, quit more than 30 days ago, quit March 2024 Tobacco Use:. Former vaping or e-cigarette use Smokeless Tobacco Use:. Household tobacco concerns: No., 06/11/2024 Family History Diabetes mellitus type 2: Father. Hyperlipidemia: Father. Immunizations Vaccine Date Status Comments influenza virus vaccine, inactivated 08/12/2023 Recorded influenza virus vaccine, inactivated 09/09/2022 Recorded SARSCoV2 mRNA(jbnrkpoul-kqsu-x [facility]) vac 06/06/2022 Recorded 2023-01-20: TPVALL SARSCoV2 mRNA(hzzsujael-hgvz-f [facility]) vac 05/16/2022 Recorded 2023-01-20: TPVALL meningococcal group B vaccine 09/15/2021 Recorded meningococcal group B vaccine 06/27/2021 Recorded 2024-06-10: DEYANIRA ARCEO RN meningococcal conjugate vaccine 06/27/2021 Recorded 2024-06-10: DEYANIRA ARCEO RN influenza virus vaccine, inactivated 10/12/2019 Recorded influenza v (more content not included)... Normal [facility] Comment on above: Result Comment: Elec tronically Signed By: Natacha Pringle\.br\Date and Time Signed: 06/11/24 09:41 EDT Quick Strepon 05-04-2023 S. pyogenes Org specific cx Ql (Throat) Positive [facility] Other Quick Strep [facility] Other Quick Strepon 12-03-2022 S. pyogenes Org specific cx Ql (Throat) Positive [facility] Other Quick Strep [facility] Other CBC AUTO DIFFon 03-28-2022 BASO # 0.1 103/ul Normal 0.0-0.1 [facility] Comment on above: Performed By: #### C BC #### [facility] [address] [place] [address] Dr. Rabia Rizo Basophils/100 WBC (Bld) 0.7 % Normal 0.2-2.0 [facility] Comment on above: Performed By: #### C BC #### [facility] [address] [place] [address] Dr. Rabia Rizo EO # 0.8 103/ul Critically high 0.0-0.7 [facility] Comment on above: Performed By: #### C BC #### [facility] [address] [place] [address] Dr. Rabia Rizo Eosinophils/100 WBC (Bld) 8.9 % Critically high 0.9-7.0 [facility] Comment on above: Performed By: #### C BC #### [facility] [address] [place] [address] Dr. Rabia Rizo Erythrocyte distribution width (RBC) [Ratio] 11.5 % Normal 11.0-15.0 [facility] Comment on above: Performed By: #### C BC #### [facility] [address] [place] [address] Dr. Rabia Rizo Hematocrit (Bld) [Volume fraction] 42.5 % Normal 42.0-54.0 [facility] Comment on above: Performed By: #### C BC #### [facility] [address] [place] [address] Dr. Rabia Rizo Hemoglobin (Bld) [Mass/Vol] 14.5 g/dL Normal 14.0-18.0 [facility] Comment on above: Performed By: #### C BC #### [facility] [address] [place] [address] Dr. Rabia Rizo IG # 0.02 10e3/ul Normal 0.00-0.03 [facility] Comment on above: Performed By: #### C BC #### [facility] [address] [place] [address] Dr. Rabia Rizo IG % 0.2 % Normal 0.0-0.5 [facility] Comment on above: Performed By: #### C BC #### [facility] [address] [place] [address] Dr. Rabia Rizo LYMPH # 1.8 103/ul Normal 1.2-3.8 [facility] Comment on above: Performed By: #### C BC #### [facility] [address] [place] [address] Dr. Rabia Rizo Lymphocytes/100 WBC (Bld) 20.0 % Critically low 20.5-60.0 [facility] Comment on above: Performed By: #### C BC #### [facility] [address] [place] [address] Dr. Rabia Rizo MANUAL DIFF REQ NO Normal [facility] Comment on above: Performed By: #### C BC #### [facility] [address] [place] [address] Dr. Rabai Rizo MCH (RBC) [Entitic mass] 30.8 pg Normal 25.9-34.0 [facility] Comment on above: Performed By: #### C BC #### [facility] [address] [place] [address] Dr. Rabia Rizo MCHC (RBC) [Mass/Vol] 34.1 g/dL Normal 29.9-35.2 [facility] Comment on above: Performed By: #### C BC #### [facility] [address] [place] [address] Dr. Rabia Rizo MCV (RBC) [Entitic vol] 90.2 fL Normal 80.0-94.0 [facility] Comment on above: Performed By: #### C BC #### [facility] [address] [place] [address] Dr. Rabia Rizo MONO # 0.8 103/ul Normal 0.3-0.8 [facility] Comment on above: Performed By: #### C BC #### [facility] [address] [place] [address] Dr. Rabia Rizo Monocytes/100 WBC (Bld) 8.9 % Normal 1.7-12.0 [facility] Comment on above: Performed By: #### C BC #### [facility] [address] [place] [address] Dr. Rabia Rizo NEUT # 5.6 103/ul Normal 1.4-6.5 [facility] Comment on above: Performed By: #### C BC #### [facility] [address] [address] [address] Rabia Rizo Neutrophils/100 WBC (Bld) 61.3 % Normal 43.0-75.0 [facility] Comment on above: Performed By: #### C BC #### [facility] [address] [address] [address] Rabia Rizo Platelet mean volume (Bld) [Entitic vol] 9.7 fL Normal 9.5-13.5 [facility] Comment on above: Performed By: #### C BC #### [facility] [address] [address] [address] Rabia Rizo PLT 279 103/ul Normal 150-450 [facility] Comment on above: Performed By: #### C BC #### [facility] [address] [address] [address] Rabia Rizo RBC 4.71 106/ul Normal 4.70-6.10 [facility] Comment on above: Performed By: #### C BC #### [facility] [address] [address] [address] Rabia Rizo WBC 9.1 103/ul Normal 4.0-11.0 [facility] Comment on above: Performed By: #### C BC #### [facility] [address] [address] [address] Rabia Rizo CRPon 03-28-2022 CRP [Mass/Vol] mg/L Normal <=1.0 [facility] Comment on above: Performed By: #### C RP #### [facility] [address] [address] [address] Rabia Rizo XR SINUSES 3 VIEWS OR GREATE Enrrique 03-28-2022 XR SINUSES 3 VIEWS OR GREATER Sinuses EXAMINATION: XR SINUSES 3 VIEWS OR GREATER HISTORY: Acute maxillary sinusitis COMPARISON: No relevant comparison available. FINDINGS: MAXILLARY: Suspect mild mucosal thickening. No fluid levels. ETHMOID: No mucosal thickening or fluid level. FRONTAL: Suspect mild mucosal thickening on left. SPHENOID: No mucosal thickening or fluid level. OTHER: Negative. IMPRESSION: 1. Findings suggest mild-moderate chronic sinusitis. Electronically authenticated by: MANDEEP GERMÁN Date: 2022-03-28 10:18 Normal [facility] XR CERVICAL SPINE (2-3 VIEWS )on 12-19-2021 XR CERVICAL SPINE (2-3 VIEWS) EXAMINATION: CERVICAL SPINE CLINICAL HISTORY: Chronic pain. No history of trauma reported COMPARISON: NONE 3 views of the cervical spine are submitted. There is mild straightening of the normal expected cervical lordosis. Prevertebral soft tissues are unremarkable. Disk spaces are intact No acute fracture. No spondylolisthesis. . IMPRESSION: NO ACUTE FRACTURE Interpreted by: Sreedhar Thomas MD Signed by: Sreedhar Thomas MD 12/19/21 Final result Normal [facility] XR wrist LT 2Von 10-18-2021 XR wrist LT 2V [facility] Other XR wrist LT 2V [facility] [employer] Other XR wrist LT 2V [address] [place] [address] [employer] Other XR wrist [place] [address] [address] No rt [employer] Other XR wrist LT 2V XRay Report [email or web address] Other XR wrist LT 2V Signed [employer] Other XR wrist LT 2V Patient: Marco Gómez MR#: [id number] [facility] Other XR wrist LT 2V [address] [employer] Other XR wrist LT 2V : 2005 Acct:[id number] [employer] Other XR wrist LT 2V Age/Sex: 16 / M ADM Date: 10/18/21 [employer] Other XR wrist LT 2V Loc: [facility] Room: Type : [facility] Other XR wrist LT 2V Attending Dr: Tyson Pires DO [employer] Other XR wrist LT 2V Ordering Provider: Tyson Pires DO [facility] Other XR wrist LT 2V Date of Service: 10/18/21 [facility] Other XR wrist LT 2V XR/XR wrist LT 2V: Mass of left wrist [employer] Other XR wrist LT 2V Copies to: Tyson Pires DO [employer] Other XR wrist LT 2V Left wrist 10/18/2021. [facility] Other XR wrist LT 2V CLINICAL DATA: Left wrist mass. [facility] Other XR wrist LT 2V FINDINGS: 2 views of the left wrist were obtained. [facility] Other XR wrist LT 2V No acute fracture or dislocation is identified. No early degenerative or other arthritic changes [facility] Other XR wrist LT 2V are seen. No bony erosion or destruction is visualized. There is localized soft tissue swelling at [employer] Other XR wrist LT 2V the dorsal aspect of the wrist. [employer] Other XR wrist LT 2V XR/XR wrist LT 2V [employer] Other XR wrist LT 2V IMPRESSION: Dorsal soft tissue swelling. No acute bony abnormality. [employer] Other XR wrist LT 2V Impression dictated by: Ozzy Cid Jr., M.D.10/18/2021 4:15 PM [employer] Other XR wrist LT 2V Dictation Location: [place] [address] [employer] Other XR wrist LT 2V Transcribed By: KAMRYN 10/18/21 1615 [employer] Other XR wrist LT 2V Dictated By: Ozyz Cid Jr, MD 10/18/21 1612 [employer] Other XR wrist LT 2V [facility] [employer] Other XR wrist LT 2V 10/18/21 1617 [facility] darlene [employer] Other Operative Reporton 04-04-201 8 Operative Report MR#: [id number] [facility] Pt. Name: Marco Gómez Room #: 0C Discharge Date: Birthdate: 2005 OPERATIVE REPORT DATE OF SURGERY: 04/03/2018 SURGEON: Bill Hurt M.D. OUTPATIENT ADMITTING CLERK: Nadine Valera M.D. PREOPERATIVE DIAGNOSES: 1. Right shoulder internal impingement. 2. Right shoulder possible partial-thickness rotator cuff tear. 3. Right shoulder capsular laxity. POSTOPERATIVE DIAGNOSES: 1. Right shoulder internal impingement. 2. Right shoulder partial-thickness infraspinatus rotator cuff tear. 3. Right shoulder posterior labral tear. 4. Right shoulder patulous anteroinferior capsule. PROCEDURE PERFORMED: 1. Right shoulder arthroscopy. 2. Right shoulder debridement of capsular thickening along the superior labrum. 3. Right shoulder rotator cuff (infraspinatus) debridement. 4. Right shoulder posterior labral repair. 5. Right shoulder anterior capsulorrhaphy. ANESTHESIA: Right interscalene nerve block and general endotracheal tube anesthesia. SPECIMENS: None. DRAINS: None. COMPLICATIONS: None. BLOOD LOSS: Minimal. IMPLANTS: 5 x 2.4 mm Arthrex SutureTaks. CONDITION: The patient postoperatively stable to PACU. OPERATIVE INDICATIONS: Marco is a 12-year-old male, who is involved in baseball, football, and basketball, who presented with long-standing right shoulder pain. He had several episodes of what was described essentially as a arm. He also had difficulty with some of his other sport activities including pain and loss of motion. He had particularly bad pain with baseball throwing. When he presented to our office, his exam was consistent with shoulder instability as well as internal impingement. He had significant glenohumeral internal rotation deficit. He also had slightly abnormal findings on his MRI that were suggestive with either impingement on the posterosuperior humeral head or an old Hill-Sachs lesion. It was difficult to assess based on exactly what we saw on the imaging. We discussed different treatment options and his father elected for surgery. Informed consent was signed. EXAM UNDER ANESTHESIA: Once Marco was placed under anesthesia, exam of the right shoulder was performed. His range of motion in plane of the scapula was 0-170 degrees. His external rotation in neutral was 60 degrees. His external rotation in abduction was 110 degrees and internal rotation in this position was 10 degrees. He had a grade 2 anterior and posterior load and shift test. DIAGNOSTIC ARTHROSCOPIC FINDINGS: Diagnostic arthroscopy was performed through the standard posterior arthroscopy portal. Humeral head and glenoid articular cartilage surfaces were grossly well appearing with some minor fraying only on the posterior edge of the glenoid near the posterior labral tear. The biceps did not appear to be injured in the midsubstance or attachment to the labrum. The patient did have a slightly recessed superior labrum, but this appeared largely adaptive rather than torn. He did have a fair amount of inflammatory capsular tissue from the superior and posterosuperior labrum. Evaluation of the anterior labrum showed no clear deficit, but the labrum was very soft and the capsular tissue was significantly less anterior, inferior, and along the inferior capsular space. He had a positive drive-through sign. There was a posterior labral tear from the 7 o'clock to the 9 o'clock position. Evaluation of rotator cuff began with the subscapularis. This was intact at the midsubstance and attachment to the lesser tuberosity. The supraspinatus attachment was grossly well appearing with the exception of some minor tendinitis. The infraspinatus showed fraying. There was partial-thickness tearing approximately 10%-15%. OPERATIVE NOTE: Marco and his family were given final opportunity to ask questions in the preoperative area today. He was taken for right interscalene nerve block and brought back to the operating room, placed under general endotracheal tube anesthesia without event. He was placed in a sitting beach chair position with care taken to pad his distal extremities. His head was placed in a head and neck surgeon, which was evaluated by both Orthopedics and Anesthesia to make sure there was no sign of traction. Exam under anesthesia was performed, please see the findings listed above. Right arm was prepped and draped in the normal sterile fashion. A time-out was performed to verify the correct patient, medical record number, and procedure to be performed. All appropriate members of the operating room staff were present for the time-out. A dose of antibiotics was given for prophylaxis. Diagnostic arthroscopy was then performed through the standard posterior arthroscopy portal, please see the findings listed above. On initial evaluation of this shoulder, it was clear that the patient had both anterior and posterior shoulder instability, but for different reasons. The posterior labrum was torn as discussed above, but the anterior capsular tissue was extremely loose. We were essentially able to dislocate the patient in either direction. Once we decided that we were going to be doing a posterior labral repair and then anterior capsulorrhaphy, we began with placement of an anterosuperior, anteroinferior, and posterior cannulas. We began with debridement of the thickened capsular tissue along the superior portion of the labrum extending posteriorly. We cleaned this out mostly with cautery. We then proceeded to a debridement of the patient's infraspinatus. This was about 10%-15% torn. The tissue was largely debrided with a combination of cautery and shaver. Of note, this patient did have a very strange bare area to his humeral head. It was larger than usual, and we initially thought it may be a Hill-Sachs lesion, but it turned out to just be a more extended bare area. We elected at this point to do no significant work to prepare for a remplissage and to determine after doing the labral work and capsular work if we needed to do this for possible engagement. We then proceeded to better evaluation of the patient's posterior labral tear. This was from about the 7 o'clock to the 9 o'clock positions. We used a sequence of preparatory steps to prepare for repair including elevating the labrum and using a rasp to remove loose poor quality tissue. Following this, we used a bur to freshen the bone for good healing. In this case, we used a percutaneous portal posterolaterally to place two 2.4 mm Arthrex SutureTaks. One was placed at about the 7:30 position and the other was placed at about the 8:30 or 9 o'clock position. This was an anchor first technique. We then used a standard suture shuttling technique to do a capsulolabral repair. Arthroscopic knots were tied off the articular cartilage face and we had significantly improved our posterior stability. We then proceeded to our anterior capsulorrhaphy. We did note that the labrum it did not appear detached anteriorly, but it was clearly not normal. It was very soft and did not have firm attachment to the glenoid. It was much easier than normal to get a suture shuttling Lasso under the labrum than in a normal capsulorrhaphy setting suggesting chronic wear and tear. We placed 3 Arthrex 2.4 mm SutureTaks. Our initial anchor was at the 6 o'clock position. Our additional 2 anchors were at the 4:30 and 3 o'clock positions. We used a standard suture shuttling technique, where we roughened the capsular tissue with a rasp on both sides of where we were performing our capsulorrhaphy and then used a suture shuttling Lasso to grab capsule more distally and then pass under the labrum. We then tied arthroscopic knots off the articular cartilage space completely restoring the stability of the anterior aspect of the joint. We no longer had a positive drive-through sign. We had significantly improved stability such that we did not feel there would potentially be any engagement of the area of increased bare spot with the anterior glenoid. This brought about the conclusion of the procedure. The stability had dramatically improved. We checked to make sure we had not overly tightened him to simple external rotation and it appeared we were fine. Portal sites were closed with 3-0 Novafil in a simple suture fashion. The wounds were dressed with Xeroform, 4x4s, ABD pads, and foam tape. A Polar Care unit was applied as well as a pillow abduction sling. The patient was woken up from anesthesia without event and taken to the PACU in stable condition. POSTOPERATIVE INSTRUCTIONS: 1. Marco will start a slightly unique postoperative protocol for this shoulder. He will only do passive motion for the first four weeks after surgery. He will be in a sling for 4 weeks after surgery. We will limit his external rotation to about 30 or 40 degrees passively for the first 4 weeks after surgery. He will do no active range of motion during that time. His forward flexion is limited to 90 degrees for 2 weeks and then may proceed to full passive after that. 2. The patient will have physical therapy beginning in 3 or 4 days, at which time his dressings will be changed. Until then, he is simply to sponge bath. 3. The patient will follow up with me in 10 days, at which time his sutures will be removed. We will further discuss his procedure. Electronically Signed by: Bill Hurt M.D. 04/07/2018 10:01 P Bill Hurt M.D. Date Dict: 04/03/2018/08:59 P/Bill Hurt M.D. Date Trans: 04/04/2018 07:31 A/king [id number] cc: Rafita March M.D. [address] [place] [id number] Radhames Ortiz, DO [address] [facility] [address] Normal [facility] POC GLUCOSE LABon 04-03-2018 Glucose mass conc 75 mg/dL Normal 70-100 [facility] Comment on above: Performed By: #### 8 [id number] #### [facility] [address] Vital Signs Date Time Vital Sign Value Performing Clinician Facility 01-21-2025 09:52-0400 Body height 180.3 cm Nolvia Nice NP Work Phone: [facility] 01-21-2025 09:52-0400 Body mass index (BMI) [Ratio] 25.66 kg/m2 Nolvia Nice WAITER/WAITRESS HEAD Work Phone: [facility] 01-21-2025 09:52-0400 Body weight 83.46 kg Nolvia Nice NP Work Phone: [facility] 01-21-2025 09:52-0400 Diastolic blood pressure 80 mm[Hg] Nolvia Nice WAITER/WAITRESS HEAD Work Phone: [facility] 01-21-2025 09:52-0400 Heart rate 70 /min Nolvia Nice NP Work Phone: [facility] 01-21-2025 09:52-0400 SaO2% (BldA) [Mass fraction] 99 % Nolvia Charismamor WAITER/WAITRESS HEAD Work Phone: [facility] 01-21-2025 09:52-0400 Systolic blood pressure 122 mm[Hg] Nolvia Charismamor WAITER/WAITRESS HEAD Work Phone: [facility] 11-24-2024 13:41-0500 Body height 180.3 cm Nolvia Charismamor WAITER/WAITRESS HEAD Work Phone: [facility] 11-24-2024 13:41-0500 Body mass index (BMI) [Ratio] 26.22 kg/m2 Nolvia Gillmor WAITER/WAITRESS HEAD Work Phone: [facility] 11-24-2024 13:41-0500 Body weight 85.28 kg Nolvia Charismamor WAITER/WAITRESS HEAD Work Phone: [facility] 11-24-2024 13:41-0500 Diastolic blood pressure 72 mm[Hg] Nolvia Charismamor WAITER/WAITRESS HEAD Work Phone: [facility] 11-24-2024 13:41-0500 Heart rate 72 /min Nolvia Charismamor WAITER/WAITRESS HEAD Work Phone: [facility] 11-24-2024 13:41-0500 Systolic blood pressure 104 mm[Hg] Nolvia Charismamor WAITER/WAITRESS HEAD Work Phone: [facility] 10-22-2024 10:44-0500 Blood Pressure Location Trini Andreaer [facility] 10-22-2024 10:44-0500 Body temperature 97.7 [degF] Trini Kamdner [facility] 10-22-2024 10:44-0500 Diastolic blood pressure 82 mm[Hg] Trini Kamdner [facility] 10-22-2024 10:44-0500 Heart rate 63 /min Trini Andreaer [facility] 10-22-2024 10:44-0500 Respiratory rate 18 /min Trini Hernandez [facility] 10-22-2024 10:44-0500 SaO2% (BldA) [Mass fraction] 97 % Trini Hernandez [facility] 10-22-2024 10:44-0500 Systolic blood pressure 130 mm[Hg] Trini Hernandez [facility] 09-22-2024 16:49-0500 Body height 180.3 cm Lorrie Yuan DO Work Phone: [facility] 09-22-2024 16:49-0500 Body mass index (BMI) [Ratio] 27.5 kg/m2 Lorrie Yuan DO Work Phone: [facility] 09-22-2024 16:49-0500 Body weight 89.45 kg Lorrie Yuan DO Work Phone: [facility] 09-22-2024 16:49-0500 Diastolic blood pressure 80 mm[Hg] Lorrie Yuan DO Work Phone: [facility] 09-22-2024 16:49-0500 Heart rate 70 /min Lorrie Yuan DO Work Phone: [facility] 09-22-2024 16:49-0500 SaO2% (BldA) [Mass fraction] 100 % Lorrie Yuan DO Work Phone: [facility] 09-22-2024 16:49-0500 Systolic blood pressure 126 mm[Hg] Lorrie Yuan DO Work Phone: [facility] 07-21-2024 11:10-0400 Body height 182.9 cm Lorrie Yuan DO Work Phone: [facility] 07-21-2024 11:10-0400 Body mass index (BMI) [Ratio] 26.45 kg/m2 Lorrie Yuan DO Work Phone: [facility] 07-21-2024 11:10-0400 Body weight 88.45 kg Lorrie Yuan DO Work Phone: [facility] 07-21-2024 11:10-0400 Diastolic blood pressure 82 mm[Hg] Lorrie Yuan DO Work Phone: [facility] 07-21-2024 11:10-0400 Heart rate 76 /min Lorrie Yuan DO Work Phone: [facility] 07-21-2024 11:10-0400 SaO2% (BldA) [Mass fraction] 97 % Lorrie Yuan DO Work Phone: [facility] 07-21-2024 11:10-0400 Systolic blood pressure 146 mm[Hg] Lorrie Yuan DO Work Phone: [facility] 11-05-2023 10:48-0500 Body temperature 98.42 [degF] [facility] 11-05-2023 10:48-0500 Diastolic blood pressure 97 mm[Hg] [facility] 11-05-2023 10:48-0500 Heart rate 101 /min [facility] 11-05-2023 10:48-0500 Respiratory rate 18 /min [facility] 11-05-2023 10:48-0500 SaO2% (BldA) [Mass fraction] 95 % [facility] 11-05-2023 10:48-0500 Systolic blood pressure 145 mm[Hg] [facility] 05-04-2023 10:50-0400 Body temperature 98.8 [degF] Ally Pena Other [facility] Other 05-04-2023 10:50-0400 Body weight 77.11 kg Ally Pena Other [facility] Other 05-04-2023 10:50-0400 Respiratory rate 18 /min Ally Pena Other [facility] Other 05-04-2023 10:50-0400 SaO2% (BldA) [Mass fraction] 98 % Ally Jean Other [facility] Other 01-20-2023 09:28-0400 Blood Pressure Location Noemy Orzech [facility] 01-20-2023 09:28-0400 Body temperature 97.52 [degF] Noemy Orzech [facility] 01-20-2023 09:28-04[address] [facility] Comment on above: Result Comment: ^~:!ZScore [facility] 01-20-2023 09:28-0400 Diastolic blood pressure 66 mm[Hg] Noemy Orzech [facility] 01-20-2023 09:28-0400 Heart rate 68 /min Noemy Orzech [facility] 01-20-2023 09:28-0400 Height/Length Percentile 77.[address] [facility] Comment on above: Result Comment: ^~:!Percentile Source -[facility] 01-20-2023 09:28-0400 Height/Length Z-Score 0.[address] [facility] Comment on above: Result Comment: ^~:!ZScore [facility] 01-20-2023 09:28-0400 Respiratory rate 16 /min Noemy Orzech [facility] 01-20-2023 09:28-0400 Systolic blood pressure 118 mm[Hg] Noemy Orzech [facility] 01-20-2023 09:28-[address] [facility] Comment on above: Result Comment: ^~:!ZScore Source -[facility] 01-20-2023 09:28-0400 Weight Percentile 80.71 % Noemy Ashford [facility] Comment on above: Result Comment: ^~:!Percentile Source -[facility] 12-03-2022 14:05-0500 Body temperature 98.2 [degF] Cassandra Tiffany Other [facility] Other 12-03-2022 14:05-0500 Body weight 77.11 kg Cassandra Cooneymond Other [facility] Other 12-03-2022 14:05-0500 Respiratory rate 18 /min Cassandra Tiffany Other [facility] Other 12-03-2022 14:05-0500 SaO2% (BldA) [Mass fraction] 97 % Cassandra Tiffany Other [facility] Other 01-26-2022 16:00-0400 Body height 182.88 cm Sigrid Lee Other [facility] Other 01-26-2022 16:00-0400 Body mass index (BMI) [Ratio] 25.77 kg/m2 Sigrid Lee Other [facility] Other 01-26-2022 16:00-0400 Body temperature 97.3 [degF] Sigrid Lee Other [facility] Other 01-26-2022 16:00-0400 Body weight 86.18 kg Sigrid Lee Other [facility] Other 01-26-2022 16:00-0400 SaO2% (BldA) [Mass fraction] 97 % Sigrid Lee Other [facility] Other 10-18-2021 13:00-0500 Body height 182.88 cm Tyson Pires Other [facility] Other 10-18-2021 13:00-0500 Body mass index (BMI) [Ratio] 25.77 kg/m2 Tsyon Pires Other [facility] Other 10-18-2021 13:00-0500 Body weight 86.18 kg Tyson Pires Other [facility] Other Encounters Encounter Date Encounter Type Care Provider Facility Start: 01-21-2025 End: 01-21-2025 Bamboo flowskamini Nice WAITER/WAITRESS HEAD Work Phone: [facility] [place] Start: 01-21-2025 End: 01-21-2025 Bamboo flowskamini Nice WAITER/WAITRESS HEAD Work Phone: [facility] [place] Start: 01-21-2025 End: 01-21-2025 Office outpatient visit 25 minutes Nolvia Nice WAITER/WAITRESS HEAD Work Phone: [facility] [place] Comment on above: Intractable chronic migraine without aura and without status migrainosus (CMS/HCC) (Primary Dx); Inadequate sleep hygiene Start: 01-21-2025 End: 01-21-2025 ambulatory NOLVIA NICE Not Available Start: 01-16-2025 End: 01-16-2025 ambulatory Rashard Freeman Facility:[facility] Start: 12-31-2024 End: 12-31-2024 ambulatory None Provider Facility:[facility] Start: 11-24-2024 End: 11-24-2024 Bamboo flowsheet Nolvia Nice WAITER/WAITRESS HEAD Work Phone: [facility] [place] Start: 11-24-2024 End: 11-24-2024 Bamboo flowsheet Nolvia Tex WAITER/WAITRESS HEAD Work Phone: [facility] [place] Start: 11-24-2024 End: 11-24-2024 Office outpatient visit 25 minutes Nolvia Nice WAITER/WAITRESS HEAD Work Phone: [facility] [place] Comment on above: Intractable chronic migraine without aura and without status migrainosus (CMS/HCC) (Primary Dx); Shift work sleep disorder; Sleep deprivation Start: 11-24-2024 End: 11-24-2024 ambulatory NOLVIA DIETRICHTOBIAS Not Available Start: 10-22-2024 End: 10-22-2024 ambulatory Trini Hernandez Facility:[facility] Start: 10-22-2024 End: 10-22-2024 Patient encounter procedure Trini Hernandez [facility] Start: 09-22-2024 End: 09-22-2024 ambulatory LORRIE YUAN Not Available Start: 09-22-2024 End: 09-22-2024 Office outpatient visit 25 minutes Lorrie Yuan DO Work Phone: [facility] Comment on above: Sleep deprivation (P rimary Dx); Intractable chronic migraine without aura and without status migrainosus (CMS/HCC); Shift work sleep disorder Start: 09-01-2024 End: 09-01-2024 ambulatory Natacha Henriquez Facility:[facility] Steph ramos Start: 07-21-2024 End: 07-21-2024 Bamboo flowsheet Lorrie Yuan DO Work Phone: [facility] Start: 07-21-2024 End: 07-21-2024 Bamboo flowsheet Lorrie Yuan DO Work Phone: [facility] Start: 07-21-2024 End: 07-21-2024 Office consultation new/estab patient 60 min Lorrie Yuan DO Work Phone: [facility] Comment on above: Chronic daily headac he (Primary Dx); Intractable chronic migraine without aura and without status migrainosus (CMS/HCC); Tension headache; Shift work sleep disorder; Sleep deprivation; Inadequate sleep hygiene Start: 07-21-2024 End: 07-21-2024 ambulatory LORRIE TOUSSAINT Not Available Start: 07-07-2024 End: 07-07-2024 ambulatory Natacha L Roel Facility:[facility] Start: 06-11-2024 End: 06-11-2024 ambulatory Natacha L Roel Facility:[facility] Steph [facility] Start: 11-05-2023 End: 11-05-2023 Emergency department patient visit Nigel Isabel [facility] Start: 08-12-2023 End: 08-12-2023 ambulatory Yakov Sanchez Facility:[facility] Start: 08-12-2023 End: 08-12-2023 ambulatory MD Rafita March Work Phone: [facility] Work Phone: Start: 08-12-2023 End: 08-12-2023 Patient encounter procedure MD Rafita March Work Phone: [facility] Start: 05-04-2023 End: 05-04-2023 ambulatory Ally Pena Other [facility] Other Start: 05-04-2023 Office outpatient vi sit 15 minutes Ally Pena [facility] Start: 01-20-2023 End: 01-20-2023 Patient encounter procedure Noemy Ashford [facility] Start: 12-03-2022 End: 12-03-2022 ambulatory Cassandra Allen Other [facility] Other Start: 12-03-2022 Office outpatient vi sit 15 minutes Cassandra Allen [facility] [address] Start: 03-28-2022 End: 03-29-[address] RAFITA MARCH Facility: Start: 01-26-2022 End: 01-26-2022 ambulatory Sigrid Lee Other [facility] Other Start: 01-26-2022 Office outpatient vi sit 15 minutes Sigrid Lee [facility] Start: 12-25-2021 End: 12-25-2021 ambulatory Tyson Pires Other [facility] Other Start: 12-25-2021 Postop follow up vis it related to original px Tyson Pires [facility] Start: 12-19-2021 End: 12-19-2021 ambulatory RAFITA MARCH [facility] Start: 10-18-2021 End: 10-18-2021 ambulatory Tyson Pires Other [facility] Other Start: 10-18-2021 Office outpatient ne w 45 minutes Tyson Pires [facility] Start: 10-17-2021 ambulatory KIN CHRISTIANSON Facility:[facility] Start: 09-04-2021 End: 09-04-[address] RAFITA MARCH Facility: Start: 04-14-2018 End: 05-11-2018 Patient encounter procedure BILL HURT Facility:[facility] Start: 04-03-2018 End: 04-04-2018 Patient encounter procedure BILL HURT Facility:[facility] Start: 03-17-2018 End: 03-18-2018 Patient encounter procedure DEFAULT PHYSICIAN Facility:[facility] Procedures Date Procedure Procedure Detail Performing Clinician Start: 04-03-2018 ANESTH SURGERY OF SHOULDER SANDEE LANCSarah Start: 04-03-2018 SHOULDER ARTHROSCOPY/SURGERY BILL HURT Repair of meniscus Noemy Or chai Repair of musculoten dinous cuff of shoulder Noemy Orzech Tonsillectomy Noemy Orzech Plan of Treatment Date Care Activity Detail Author Start: 03-18-2025 End: 03-18-2025 Patient encounter procedure 03/18/2025 11:00 AM EDT Office Visit [facility] [place] [address] [address] Nolvia Nice, WAITER/WAITRESS HEAD [address] [place] [facility] Start: 02-10-2025 End: 02-10-2025 Patient encounter procedure 02/10/2025 9:40 AM EDT Office Visit [facility] FAULK[facility] [address] [place] [address] Nolvia Nice, WAITER/WAITRESS HEAD [address] [place], [place] D[facility] FAULKNER Start: 01-21-2025 End: 01-21-2026 MR Brain WO contrast MR brain wo contrast Imaging High Priority Intractable chronic migraine without aura and without status migrainosus (CMS/HCC) Expected: 01/21/2025 (Approximate), Expires: 01/21/2026 [facility] Work Phone: Comment on above: Expected: 01/21/2025 (Approximate), Expires: 01/21/2026 Start: 01-21-2025 End: 01-21-2025 Patient encounter procedure 01/21/2025 10:00 AM EDT Office Visit [facility] [place] [address] [place] [address] Nolvia Nice, WAITER/WAITRESS HEAD [address] [place], [place] Arrived [facility] [place] Comment on above: Arrived Start: 11-24-2024 End: 11-24-2024 Patient encounter procedure 11/24/2024 1:40 PM EST Office Visit [facility] [place] [address] [place] [address] Nolvia Nice, WAITER/WAITRESS HEAD [address] [place], [place] Arrived [facility] [place] Comment on above: Arrived Start: 11-17-2024 End: 11-17-2024 Patient encounter procedure 11/17/2024 4:20 PM EST Office Visit [facility] [address] [place] [address] Nolvia Nice, WAITER/WAITRESS HEAD [address] [place], [place] [facility] Start: 09-22-2024 End: 09-22-2024 Patient encounter procedure 09/22/2024 4:45 PM EST Office Visit [facility] [address] [place] [address] Lorrie Toussaint DO [address] [place] [address] [facility] Start: 07-21-2024 End: 07-21-2024 Patient encounter procedure 07/21/2024 11:00 AM EDT Office Visit [facility] [address] [facility] [address] [place] [address] Lorrie Toussaint DO [address] [place], [place] [id number] Arrived [facility] Comment on above: Arrived Start: 07-12-2024 Influenza vaccination Influenza Vacc ine (#1) [facility] Immunizations Immunization Date Immunization Notes Care Provider Fa cili 08-07-2024 influenza virus vacc ine, unspecified formulation Trini Hernandez [facility] 08-12-2023 influenza virus vacc ine, unspecified formulation Lorrie Toussaint DO Work Phone: [facility] 09-09-2022 influenza virus vacc ine, unspecified formulation Noemy Ashford [facility] 09-09-2022 Influenza, injectabl e, Madin Leela Canine Kidney, preservative free, quadrivalent Lorrie Toussaint DO Work Phone: [facility] 06-06-2022 SARS-CoV-2 mRNA (kcbnvnbcplj-jaol-spdsyc e) vaccine Noemy Orchai [facility] Comment on above: Result Comment: 2022: TPVALL 05-16-2022 SARS-CoV-2 mRNA (lhddjsxblqv-yuak-hrtkia e) vaccine Noemy Ashford [facility] Comment on above: Result Comment: 2022: TPVALL 09-15-2021 meningococcal B vacc ine, fully recombinant Trini Bordner [facility] 09-15-2021 meningococcal B vacc ine, recombinant, OMV, adjuvanted Lorrie Yuan DO Work Phone: [facility] 06-27-2021 meningococcal ACWY vaccine, unspecified formulation Lorrie Yuan DO Work Phone: [facility] Comment on above: Result Comment: 2023: DEYANIRA ARCEO RN 06-27-2021 meningococcal B vacc ine, fully recombinant Trini Bordner [facility] Comment on above: Result Comment: 2023: DEYANIRA ARCEO RN 06-27-2021 meningococcal B vacc ine, recombinant, OMV, adjuvanted Lorrie Yuan DO Work Phone: [facility] 06-27-2021 meningococcal oligosaccharide (groups A, C, Y and W-135) diphtheria toxoid conjugate vaccine (MCV4O) Lorrie Yuan DO Work Phone: [facility] 10-12-2019 influenza virus vacc ine, unspecified formulation Trini Bordner [facility] 10-12-2019 influenza, injectabl e, quadrivalent, preservative free Lorrie Yuan DO Work Phone: [facility] 09-02-2019 influenza, injectabl e, quadrivalent, preservative free Tyson Pires Other [facility] Other 09-02-2019 influenza virus vacc ine, unspecified formulation Lorrietracy Toussaint DO Work Phone: [facility] 08-30-2018 influenza virus vacc ine, unspecified formulation Trini Hernandez [facility] 08-30-2018 Influenza, injectabl e, Madin [place] Canine Kidney, preservative free, quadrivalent Lorrie Toussaint DO Work Phone: [facility] 04-30-2017 HPV, unspecified formulation Lorrie Yuan DO Work Phone: [facility] 06-26-2016 HPV, unspecified formulation Trini Hernandez [facility] 06-26-2016 Human Papillomavirus 9-valent vaccine Lorrie Toussaint DO Work Phone: [facility] 06-26-2016 meningococcal ACWY vaccine, unspecified formulation Lorrie Toussaint DO Work Phone: [facility] 06-26-2016 meningococcal polysaccharide (groups A, C, Y and W-135) diphtheria toxoid conjugate vaccine (MCV4P) Lorrie Toussaint DO Work Phone: [facility] 06-26-2016 tetanus toxoid, redu carmen diphtheria toxoid, and acellular pertussis vaccine, adsorbed Lorrietracy Toussaint DO Work Phone: [facility] 09-21-2015 influenza virus vacc ine, unspecified formulation Trini Humphreyfidelelizabeth [facility] 09-21-2015 influenza, seasonal, injectable, preservative free Lorrie Yuan DO Work Phone: [facility] 12-01-2009 Hep A, unspecified formulation Trini Kamfideler [facility] 12-01-2009 hepatitis A vaccine, unspecified formulation Lorrie Toussaint DO Work Phone: [facility] 06-02-2009 diphtheria, tetanus toxoids and acellular pertussis vaccine, unspecified formulation Lorrie Yuan DO Work Phone: [facility] 06-02-2009 DTaP, unspecified formulation Trini Bordner [facility] 06-02-2009 Hep A, unspecified formulation Trini Bordner [facility] 06-02-2009 hepatitis A vaccine, unspecified formulation Lorrie Yuan DO Work Phone: [facility] 06-02-2009 measles, mumps and rubella virus vaccine Lorrie Yuan DO Work Phone: [facility] 06-02-2009 poliovirus vaccine, inactivated Lorrie Yuan DO Work Phone: [facility] 06-02-2009 poliovirus vaccine, unspecified formulation Lorrie Yuan DO Work Phone: [facility] 06-02-2009 varicella virus vaccine Cesar le Yuan DO Work Phone: [facility] 09-21-2008 influenza virus vacc ine, unspecified formulation Trini Bordner [facility] 09-21-2008 influenza, seasonal, injectable Lorrie Yuan DO Work Phone: [facility] 09-05-2007 influenza virus vacc ine, live, attenuated, for intranasal use Lorrie Yuan DO Work Phone: [facility] 10-02-2006 influenza virus vacc ine, unspecified formulation Trini Bordner [facility] 10-02-2006 influenza, seasonal, injectable Lorrie Yuan DO Work Phone: [facility] 12-04-2004 diphtheria, tetanus toxoids and acellular pertussis vaccine, unspecified formulation Lorrie Yuan DO Work Phone: [facility] 12-04-2004 DTaP, unspecified formulation Trini Bordner [facility] 12-04-2004 haemophilus influenz ae type b vaccine, HbOC conjugate Lorrie Yuan DO Work Phone: [facility] 12-04-2004 influenza virus vacc ine, unspecified formulation Trini Humphreyfideler [facility] 12-04-2004 influenza, seasonal, injectable, preservative free Lorrie Yuan DO Work Phone: [facility] 08-04-2004 measles, mumps and rubella virus vaccine Lorrie Yuan DO Work Phone: [facility] 08-04-2004 pneumococcal conjuga te vaccine, 7 valent Lorrie Yuan DO Work Phone: [facility] 08-04-2004 varicella virus vaccine Cesar le Yuan DO Work Phone: [facility] 03-13-2004 DTaP-hepatitis B and poliovirus vaccine Lorrie Yuan DO Work Phone: [facility] 03-13-2004 haemophilus influenz ae type b vaccine, HbOC conjugate Lorrie Yuan DO Work Phone: [facility] 03-13-2004 pneumococcal conjuga te vaccine, 7 valent Lorrie Yuan DO Work Phone: [facility] 2003 diphtheria, tetanus toxoids and acellular pertussis vaccine, unspecified formulation Lorrie Yuan DO Work Phone: [facility] 2003 DTaP, unspecified formulation Trini Humphreyfidelelizabeth [facility] 2003 haemophilus influenz ae type b vaccine, HbOC conjugate Lorrie Yuan DO Work Phone: [facility] 2003 pneumococcal conjuga te vaccine, 7 valent Lorrie Yuan DO Work Phone: [facility] 2003 poliovirus vaccine, inactivated Lorrie Yuan DO Work Phone: [facility] 2003 poliovirus vaccine, unspecified formulation Lorrie Yuan DO Work Phone: [facility] 2003 DTaP-hepatitis B and poliovirus vaccine Lorrie Toussaint DO Work Phone: [facility] 2003 haemophilus influenz ae type b vaccine, HbOC conjugate Lorrie Toussaint DO Work Phone: [facility] 2003 pneumococcal conjuga te vaccine, 7 valent Lorrie Toussaint DO Work Phone: [facility] 2003 hepatitis B vaccine, pediatric or pediatric/adolescent dosage Lorrie Toussaint DO Work Phone: [facility] Healthcare Payers Date Payer Category Payer [facility] er [id number] 2023 Unknown 2023 Self-pay [id number] 2006 Private Health Insurance [id number] 2003 Unknown [id number] [id number] .2.647 2003 Unknown [id number] [id number] .2.182 2003 Unknown [id number] 2.16.840.1.750632.3.579 .2.593 2003 Unknown [id number] 2.16.840.1.649726.3.579 .2.593 2003 Unknown [id number] 2.16.840.1.125869.3.579 .2.727 2003 Unknown [id number] 2.16.840.1.924312.3.579 .2.727 2003 Unknown [id number] 2.16.840.1.670719.3.579 .2.727 2003 Unknown [id number] 2.16.840.1.903074.3.579 .2.727 2003 Unknown [id number] 2.16.840.1.991402.3.579 .2.727 2003 Unknown [id number] 2.16.840.1.856150.3.579 .2.727 2003 Unknown [id number] 2.16.840.1.836409.3.579 .2.1259 2003 Unknown [id number] 2.16.840.1.057056.3.579 .2.1259 2003 Unknown [id number] 2.16.840.1.830636.3.579 .2.1259 2003 Unknown [id number] 2.16.840.1.689237.3.579 .2.1259 1982 Unknown [id number] 2.16.840.1.047506.3.579 .2.593 1981 Unknown [id number] 2.16.840.1.954757.3.579 .2.647 1981 Unknown [id number] 2.16.840.1.914143.3.579 .2.647 1959 Unknown [id number] 1959 Unknown [id number] Medicaid [employer] [id number] Unknown [id number] [id number] .2.531 Social History Date Type Detail Facility Start: 09-22-2024 End: 01-21-2025 Sex Assigned At [facility] Start: 01-20-2023 End: 10-22-2024 Tobacco smoking status Never smoked tobacco (finding) [facility] Tobacco smoking status Never [facility] Start: 2003 Sex Assigned At Male F [facility] Start: 10-01-2023 End: 07-21-2024 Tobacco smoking status Ex-smoker (finding) [facility] History of tobacco use Current smoker [facility] Start: 07-21-2024 Tobacco use and exposure Smokeless tobacco non-user [facility] Start: 09-22-2024 End: 01-21-2025 History of Social function [facility] Start: 2003 Sex assigned at Not on file [facility] Tobacco smoking status NHIS Tobacco smoking consumption unknown [facility] Medical Equipment Procedure Code Equipment Code Equipment Origin al Text Equipment Identifier Dates Arthroscopy, knee Tendon/ligamen t bone anchor, non-bioabsorbable [id number] [facility] Start: 11-06-2019 Functional Status Date Assessment Result Facility 10-22-2024 Functional Status N/A [facility] 11-05-2023 Functional Status No [facility] 01-20-2023 Functional Status N/A [facility] Clinical Notes 10-18-2021 to 01-16-2025 Lorrie Toussaint, DO - 09/22/2024 4:45 PM Ab Toussaint DO - 07/21/2024 11:00 AM EDT Note Date & Type Note Facility 01-16-2025 Note Patient Education Infectious Disease Rash, Adult A rash is a breakout of spots or blotches on the skin. It can change the way your skin looks and feels. Many things can cause a rash. The goal of treatment is to stop the itching and keep the rash from spreading. Follow these instructions at home: Medicine Take or apply zziz-ioz-rgpanzz and prescription medicines only as told by your doctor. These may include medicines to treat: ??? Red or swollen skin. ??? Itching. ??? An allergy. ??? Pain. ??? An infection. Skin care ??? Put a cool, wet cloth on the rash. ??? Do not scratch or rub your skin. ??? Try not to cover the rash. Keep it exposed to air as often as you can. Managing itching and discomfort ??? Avoid hot showers or baths. These can make itching worse. A cold shower may help. ??? Try taking a bath with: ? Epsom salts. You can get these at your pharmacy or grocery store. Follow the instructions on the package. ? Baking soda. Pour a small amount into the bath as told by your doctor. ? Colloidal oatmeal. You can get this at your pharmacy or grocery store. Follow the instructions on the package. ??? Try putting baking soda paste on your skin. Stir water into baking soda until it gets like a paste. ??? Try putting on a lotion to help with itching (calamine lotion). ??? Keep cool. Stay out of the sun. Sweating and being hot can make itching worse. General instructions ??? Rest as needed. ??? Drink enough fluid to keep your pee (urine) pale yellow. ??? Wear loose-fitting clothes. ??? Avoid scented soaps, detergents, and perfumes. Use gentle soaps, detergents, perfumes, and cosmetics. ??? Avoid the things that cause your rash. Keep a journal to help keep track of what causes your rash. Write down: ? What you eat. ? What cosmetics you use. ? What you drink. ? What you wear. This includes jewelry. Contact a doctor if: ??? You sweat a lot at night. ??? You pee (urinate) more or less than normal. ??? Your pee is a darker color than normal. ??? Your eyes are sensitive to light. ??? Your skin or the white parts of your eyes turn yellow. ??? Your skin tingles or is numb. ??? You get painful blisters in your nose or mouth. ??? Your rash does not go away after a few days, or it gets worse. ??? You are more tired than normal. ??? You are more thirsty than normal. ??? You have new or worse symptoms. These may include: ? Pain in your belly. ? A fever. ? Watery poop (diarrhea). ? Vomiting. ? Weakness. ? Weight loss. Get help right away if: ??? You start to feel mixed up (confused). ??? You have a very bad headache or a stiff neck. ??? You have very bad joint pain or stiffness. ??? You get very sleepy or not responsive. ??? You have a seizure. This information is not intended to replace advice given to you by your health care provider. Make sure you discuss any questions you have with your health care provider. Document Revised: 08/16/2023 Document Reviewed: 08/16/2023 Spool Patient Education ? 2023 [employer]. [facility] 10-22-2024 Hospital Discharg e instructions Patient Education 10/22/2024 11:44:41 Viral Respiratory Infection, [id number] Viral Respiratory Infection A viral respiratory infection is an illness that affects parts of the body that are used for breathing. These include the lungs, nose, and throat. It is caused by a germ called a virus. Some examples of this kind of infection are: A cold. The flu (influenza). A respiratory syncytial virus (RSV) infection. What are the causes? This condition is caused by a virus. It spreads from person to person. You can get the virus if: You breathe in droplets from someone who is sick. You come in contact with people who are sick. You touch mucus or other fluid from a person who is sick. What are the signs or symptoms? Symptoms of this condition include: A stuffy or runny nose. A sore throat. A cough. Shortness of breath. Trouble breathing. Yellow or green fluid in the nose. Other symptoms may include: A fever. Sweating or chills. Tiredness (fatigue). Achy muscles. A headache. How is this treated? This condition may be treated with: Medicines that treat viruses. Medicines that make it easy to breathe. Medicines that are sprayed into the nose. Acetaminophen or NSAIDs, such as ibuprofen, to treat fever. Follow these instructions at home: Managing pain and congestion Take woni-pbf-ymcpsou and prescription medicines only as told by your doctor. If you have a sore throat, gargle with salt water. Do this 3 4 times a day or as needed. ?To make salt water, dissolve 1 tsp (3 6 g) of salt in 1 cup (237 mL) of warm water. Make sure that all the salt dissolves. Use nose drops made from salt water. This helps with stuffiness (congestion). It also helps soften the skin around your nose. Take 2 tsp (10 mL) of honey at bedtime to lessen coughing at night. ?Do not give honey to children who are younger than 1 year old. Drink enough fluid to keep your pee (urine) pale yellow. General instructions Rest as much as possible. Do not drink alcohol. Do not smoke or use any products that contain nicotine or tobacco. If you need help quitting, ask your doctor. Keep all follow-up visits. How is this prevented? Get a flu shot every year. Ask your doctor when you should get your flu shot. Do not let other people get your germs. If you are sick: ?Wash your hands with soap and water often. Wash your hands after you cough or sneeze. Wash hands for at least 20 seconds. If you cannot use soap and water, use hand business objects analyst. ?Cover your mouth when you cough. Cover your nose and mouth when you sneeze. ?Do not share cups or eating utensils. ?Clean commonly used objects often. Clean commonly touched surfaces. ?Stay home from work or school. Avoid contact with people who are sick during cold and flu season. This is in fall and winter. Get help if: Your symptoms last for 10 days or longer. Your symptoms get worse over time. You have very bad pain in your face or forehead. Parts of your jaw or neck get very swollen. You have shortness of breath. Get help right away if: You feel pain or pressure in your chest. You have trouble breathing. You faint or feel like you will faint. You keep vomiting and it gets worse. You feel confused. These symptoms may be an emergency. Get help right away. Call your local emergency services (911 in the [place] Do not wait to see if the symptoms will go away. Do not drive yourself to the hospital. Summary A viral respiratory infection is an illness that affects parts of the body that are used for breathing. Examples of this illness include a cold, the flu, and a respiratory syncytial virus (RSV) infection. The infection can cause a runny nose, cough, sore throat, and fever. Follow what your doctor tells you about taking medicines, drinking lots of fluid, washing your hands, resting at home, and avoiding people who are sick. This information is not intended to replace advice given to you by your health care provider. Make sure you discuss any questions you have with your health care provider. Document Revised: 02/01/2022 Document Reviewed: 02/01/2022 Spool Patient Education 2023 [employer]. [facility] Up [facility] 10/22/2024 09:59:32 With:Natacha Pringle FAM, MED Address:Unknown When: Unknown [facility] 10-22-2024 Note Patient Education Infectious Disease Viral Respiratory Infection A viral respiratory infection is an illness that affects parts of the body that are used for breathing. These include the lungs, nose, and throat. It is caused by a germ called a virus. Some examples of this kind of infection are: ??? A cold. ??? The flu (influenza). ??? A respiratory syncytial virus (RSV) infection. What are the causes? This condition is caused by a virus. It spreads from person to person. You can get the virus if: ??? You breathe in droplets from someone who is sick. ??? You come in contact with people who are sick. ??? You touch mucus or other fluid from a person who is sick. What are the signs or symptoms? Symptoms of this condition include: ??? A stuffy or runny nose. ??? A sore throat. ??? A cough. ??? Shortness of breath. ??? Trouble breathing. ??? Yellow or green fluid in the nose. Other symptoms may include: ??? A fever. ??? Sweating or chills. ??? Tiredness (fatigue). ??? Achy muscles. ??? A headache. How is this treated? This condition may be treated with: ??? Medicines that treat viruses. ??? Medicines that make it easy to breathe. ??? Medicines that are sprayed into the nose. ??? Acetaminophen or NSAIDs, such as ibuprofen, to treat fever. Follow these instructions at home: Managing pain and congestion ??? Take qref-boa-aciifum and prescription medicines only as told by your doctor. ??? If you have a sore throat, gargle with salt water. Do this 3?4 times a day or as needed. ? To make salt water, dissolve ??1 tsp (3?6 g) of salt in 1 cup (237 mL) of warm water. Make sure that all the salt dissolves. ??? Use nose drops made from salt water. This helps with stuffiness (congestion). It also helps soften the skin around your nose. ??? Take 2 tsp (10 mL) of honey at bedtime to lessen coughing at night. ? Do not give honey to children who are younger than 1 year old. ??? Drink enough fluid to keep your pee (urine) pale yellow. General instructions ??? Rest as much as possible. ??? Do not drink alcohol. ??? Do not smoke or use any products that contain nicotine or tobacco. If you need help quitting, ask your doctor. ??? Keep all follow-up visits. How is this prevented? Get a flu shot every year. Ask your doctor when you should get your flu shot. ??? Do not let other people get your germs. If you are sick: ? Wash your hands with soap and water often. Wash your hands after you cough or sneeze. Wash hands for at least 20 seconds. If you cannot use soap and water, use hand business objects analyst. ? Cover your mouth when you cough. Cover your nose and mouth when you sneeze. ? Do not share cups or eating utensils. ? Clean commonly used objects often. Clean commonly touched surfaces. ? Stay home from work or school. ??? Avoid contact with people who are sick during cold and flu season. This is in fall and winter. Get help if: ??? Your symptoms last for 10 days or longer. ??? Your symptoms get worse over time. ??? You have very bad pain in your face or forehead. ??? Parts of your jaw or neck get very swollen. ??? You have shortness of breath. Get help right away if: ??? You feel pain or pressure in your chest. ??? You have trouble breathing. ??? You faint or feel like you will faint. ??? You keep vomiting and it gets worse. ??? You feel confused. These symptoms may be an emergency. Get help right away. Call your local emergency services (911 in the [place] ??? Do not wait to see if the symptoms will go away. ??? Do not drive yourself to the hospital. Summary ??? A viral respiratory infection is an illness that affects parts of the body that are used for breathing. ??? Examples of this illness include a cold, the flu, and a respiratory syncytial virus (RSV) infection. ??? The infection can cause a runny nose, cough, sore throat, and fever. ??? Follow what your doctor tells you about taking medicines, drinking lots of fluid, washing your hands, resting at home, and avoiding people who are sick. This information is not intended to replace advice given to you by your health care provider. Make sure you discuss any questions you have with your health care provider. Document Revised: 02/01/2022 Document Reviewed: 02/01/2022 Spool Patient Education ? 2023 [employer]. [facility] 09-22-2024 History of Presen t illness Narrative Images from the original note were not included. Chief Complaint Patient presents with Headache Subjective Marco Gómez, 19 y.o., male Patient states that the headaches have decreased slightly. He is using the whole prescription of imitrex. He states that the imitrex takes about and hour and half to abort the migraine. He has had one migraine a month where he has needed 2 doses. He is having 2-3 days a week with migraine. He feels like he is getting better sleep with about 8 hours of sleep. He is not having any SE to the meds. He is questioning trying rizatriptan. He is also taking the amitriptyline. The headaches are located in the right taoism and the pain is described as deep and intense. He has a throbbing and pressure sensation. He can wake up with pressure in his forehead that goes up into the top of his head. The headaches occur daily. They started gradually and got work over time. The headaches are constant. The only time it does not bother him is when he is sleeping. The patient admits to photophobia, phonophobia, nausea, and emesis. The patient denies vision changes. He states that loud noises and sunlight make his headaches worse. PCP put him on Nurtec, and Ubrelvy which were all ineffective. He is currently on sumitriptan and Qulipta and states that he gets some relief with this but not much. He has been on the qulipta for 1.5-2 months. He tried moms imitrex and that seems to help. Icing his forehead does help. Sleep does seem to help. 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 - He works at [employer] [place]. He works 7p-7a 2-3 days a week. When he gets off he has a hard time sleeping. 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 Past Medical History: Diagnosis Date Depression ([facility]) Past Surgical History: Procedure Laterality Date KNEE ARTHROSCOPY W/ LASER ROTATOR CUFF REPAIR TONSILLECTOMY Family History Problem Relation Name Age of Onset Depression Mother Depression Father Hypertension Father Social History Tobacco Use Smoking status: Former Smokeless tobacco: Never Substance Use Topics Alcohol use: Not on file EtOH; none Marijuana None Allergies: Bee venom General: No fever or chills HEENT: No nasal congestion or runny nose Pulmonary: No shortness of breath or cough Cardiovascular: No chest pain or palpitations GI: No nausea or vomiting : No dysuria or hematuria Musculoskeletal: No new aches or pains or muscle weakness Infectious: no recurrent fevers or infections Dermatologic: No rashes or skin lesions Neurologic: No new headaches or dizziness Vitals: 09/22/24 1649 BP: 126/80 Pulse: 70 SpO2: 100% Body mass index is 27.5 kg/m . weight: 197 lb 3.2 oz Neurologic exam: General: Normal body habitus, cooperative, pleasant Mental status: Awake, alert to person, place and time. Recent and remote memory are intact. Attention and concentration are normal. Fund of knowledge is appropriate for level of education. HEENT: NC/AT Cranial nerves: CN II: Visual figueroa full to confrontation. No loss of vision CN III, IV, : pupils equal round and reactive to light. Extraocular movements intact. No ptosis present. CN V: Facial sensation is normal. CN VII: Full and symmetric facial movement. CN VIII: Hearing is normal CN IX and X: Palate elevates symmetrically. CN XI: Shoulder shrug is normal bilaterally. CN XII: Tongue is midline without atrophy or fasciculation. Speech: Clear and fluent no aphasia or dysarthria Pronator drift: Negative bilateral upper extremity Coordination: Intact, no signs of dysmetria Good finger to nose and rapid alternating movements Sensory: Sensation is intact to light, temperature and vibratory touch throughout four extremities. Motor: LUE 5/5 RUE 5/5 LLE 5/5 RLE 5/5 Tone: Physiologic, no tremor, bradykinesia or rigidity DTR: Bilateral Biceps 2/4 Bilateral BR 2/4 Bilateral Patellar 2/4 No spasticity Gait: Normal to casual gait Romberg's Negative Review and summary of old records: Assessment/Plan Diagnoses and all orders for this visit: Sleep deprivation Intractable chronic migraine without aura and without status migrainosus (CMS/HCC) - amitriptyline (Elavil) 25 MG tablet; 2 po q hs - SUMAtriptan (Imitrex) 20 MG/ACT nasal spray; 1 spray in 1 nostril at onset of migraine may repeat in other nostril in 2 hours if needed max 2 days per week. Shift work sleep disorder 19 Year old male who has developed into chronic daily headaches made up of migraines without aura and tension type headaches. He did have some headaches prior to the last 3-1/2-4 months however they were just periodic at that point in time. This is likely triggered by sleep deprivation and shift work sleep cycle. He graduate soon and we will be able to get off of rn shift mgr. The amitriptyline was helping initially but appears to have lost some of its efficacy we will go ahead and increase it to 1-1/2-2 at bedtime and see if that helps consolidate his sleep better and help with the headaches more. The Imitrex is taking too long to work and he is needing 2 pills so we will go ahead and try Imitrex nasal spray as that will be much quicker acting and see if that works a little bit better. We could consider adding in rizatriptan pending his course. I am hopeful that this combination will work a little bit better for him. He has tried and failed Nurtec Ubrelvy and Qulipta Plan Trial of Imitrex nasal spray Increase amitriptyline 25 mg 1-/2-2 at bedtime Try to keep the same set sleep schedule 7 days a week and do not change it on the weekends Consider a trial of rizatriptan if the Imitrex nasal spray does not work Counseled on proper sleep hygiene and getting more hours of sleep Can consider imaging however I suspect sleep is the biggest culprit and his exam is normal. The diagnosis was all discussed with the patient. All questions were answered and they agreed with the treatment plan. Patient will call if there are any new issues or questions. Pt has been fully educated on their diagnosis, treatment options, follow up plan, and return instructions Return to clinic: 2 months documented in this encounter [facility] 07-21-2024 History of Presen t illness Narrative Images from the original note were not included. Chief Complaint Patient presents with Headache Subjective Marco Gómez, 18 y.o., male who is being seen in outpatient neurological consultation after request of Natacha Henriquez for headaches. Headache started 3 and a half months ago. Prior to that he would have a headache a couple times a year. He does remember having some growing up and alleve would take care of it. He denies any injury. The headaches are located in the right taoism and the pain is described as deep and intense. He has a throbbing and pressure sensation. He can wake up with pressure in his forehead that goes up into the top of his head. The headaches occur daily. They started gradually and got work over time. The headaches are constant. The only time it does not bother him is when he is sleeping. The patient admits to photophobia, phonophobia, nausea, and emesis. The patient denies vision changes. He states that loud noises and sunlight make his headaches worse. He states that he has sinus issues and is on claritin. His mother has a history of migraines. He denies head trauma. No concussions PCP put him on Nurtec, and Ubrelvy which were all ineffective. He is currently on sumitriptan and Qulipta and states that he gets some relief with this but not much. He has been on the qulipta for 1.5-2 months. He tried moms imitrex and that seems to help. Icing his forehead does help. Sleep does seem to help. 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 He works 7p-7a 2-3 days a week. When he gets off he has a hard time sleeping. 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 Past Medical History: Diagnosis Date Depression ([facility]) Past Surgical History: Procedure Laterality Date KNEE ARTHROSCOPY W/ LASER ROTATOR CUFF REPAIR Family History Problem Relation Name Age of Onset Depression Mother Depression Father Hypertension Father Social History Tobacco Use Smoking status: Former Smokeless tobacco: Never Substance Use Topics Alcohol use: Not on file EtOH; none Marijuana None Allergies: Patient has no known allergies. General: No fever or chills HEENT: No nasal congestion or runny nose Pulmonary: No shortness of breath or cough Cardiovascular: No chest pain or palpitations GI: No nausea or vomiting : No dysuria or hematuria Musculoskeletal: No new aches or pains or muscle weakness Infectious: no recurrent fevers or infections Dermatologic: No rashes or skin lesions Neurologic: No new headaches or dizziness Vitals: 07/21/24 1110 BP: 146/82 Pulse: 76 SpO2: 97% Body mass index is 26.45 kg/m . weight: 195 lb Neurologic exam: General: Normal body habitus, cooperative, pleasant Mental status: Awake, alert to person, place and time. Recent and remote memory are intact. Attention and concentration are normal. Fund of knowledge is appropriate for level of education. HEENT: NC/AT Cranial nerves: CN II: Visual figueroa full to confrontation. No loss of vision CN III, IV, : pupils equal round and reactive to light. Extraocular movements intact. No ptosis present. CN V: Facial sensation is normal. CN VII: Full and symmetric facial movement. CN VIII: Hearing is normal CN IX and X: Palate elevates symmetrically. CN XI: Shoulder shrug is normal bilaterally. CN XII: Tongue is midline without atrophy or fasciculation. Speech: Clear and fluent no aphasia or dysarthria Pronator drift: Negative bilateral upper extremity Coordination: Intact, no signs of dysmetria Good finger to nose and rapid alternating movements Sensory: Sensation is intact to light, temperature and vibratory touch throughout four extremities. Pinprick intact in all four extremities. Motor: LUE 5/5 RUE 5/5 LLE 5/5 RLE 5/5 Tone: Physiologic, no tremor, bradykinesia or rigidity DTR: Bilateral Biceps 2/4 Bilateral BR 2/4 Bilateral Patellar 2/4 No spasticity Gait: Normal to casual gait Romberg's Negative Review and summary of old records: Assessment/Plan Diagnoses and all orders for this visit: Chronic daily headache Intractable chronic migraine without aura and without status migrainosus (CMS/HCC) - SUMAtriptan (Imitrex) 100 MG tablet; 1 at the onset of the migraine and may repeat in 2 hours if needed max 2 days per week 2 doses per day - amitriptyline (Elavil) 25 MG tablet; Take 1 tablet (25 mg) by mouth Daily Tension headache - SUMAtriptan (Imitrex) 100 MG tablet; 1 at the onset of the migraine and may repeat in 2 hours if needed max 2 days per week 2 doses per day - amitriptyline (Elavil) 25 MG tablet; Take 1 tablet (25 mg) by mouth Daily Shift work sleep disorder Sleep deprivation Inadequate sleep hygiene Year old male who has developed into chronic daily headaches made up of migraines without aura and tension type headaches. He did have some headaches prior to the last 3-1/2-4 months however they were just periodic at that point in time. I suspect he has triggered into this headache pattern because of his sleep. He works 3rd shift but only 3-4 days of the week. He tries to sleep during the day those days however is not good quality sleep. He then switches to schedule on his days off and sleeps at night. He is getting some sleep deprivation from the shift work sleep cycle and inappropriate sleep hygiene. He needs to set better sleep schedule get better quality of sleep. 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 We will go ahead and start him on some medication to help with his sleep and his headaches we will see how it works. He has tried and failed Nurtec Ubrelvy and Qulipta Plan Imitrex that he can use abortive only up to 2 days of the week Start amitriptyline 25 mg half to 1 at his bedtime The patient was counseled on proper sleep hygiene and adequate hours of sleep. Headache handout given Sleep handout given Counseled on proper sleep hygiene and getting more hours of sleep He can cont the Qulipta for now if he feels it is helping. Can consider imaging however I suspect sleep is the biggest culprit and his exam is normal. The diagnosis was all discussed with the patient. All questions were answered and they agreed with the treatment plan. Patient will call if there are any new issues or questions. Pt has been fully educated on their diagnosis, treatment options, follow up plan, and return instructions Return to clinic: 2 months documented in this encounter [facility] 11-05-2023 Evaluation + Plan note Extrac manfred from: Title:ED Note Author:Bud Yusuf PA-C te:11/05/23 Hand laceration (S61.419A: L aceration without foreign body of unspecified hand, initial encounter) Orders: lidocaine, 100 mg = 10 mL, Injection, SubCutaneous, Once, Stop date 11/05/23 11:20:00 EST, Start date 11/05/23 11:20:00 EST [facility]12-26-2023 Hospital Discharge instructions Patient Education 11/05/2023 11:27:32 Laceration Care, 7-10 ([id number]) Laceration Care A laceration is a cut or lesion that goes through all layers of the skin and into the tissue just beneath the skin. BEFORE THE PROCEDURE The laceration will be inspected by your caregiver for amount and extent of tissue damage, for bleeding, for evidence of foreign bodies (pieces of dirt, glass, etc.), and for cleanliness. Pain medications can be used if necessary. The wound will then be cleansed to help prevent infection. Sutures, andreia, steri strips, or wound adhesive will be used to close the wound, stop bleeding and speed healing. Sometimes this will decrease the likelihood of infection and bleeding. LET YOUR CAREGIVERS KNOW ABOUT THE FOLLOWING: Allergies. Medications taken including herbs, eye drops, over the counter medications, and creams. Use of steroids (by mouth or creams). Previous problems with anesthetics or novocaine. Possibility of , if this applies. History of blood clots (thrombophlebitis). History of bleeding or blood problems. Previous surgery. Other health problems. RISKS AND COMPLICATIONS Most lacerations heal fully. The healing time required varies depending on location. Complications of a laceration can include pain, bleeding, infection, dehiscence (splitting open or separation of the wound edges) and scar formation. The likelihood of complication depends on wound complexity, location, and on how the laceration occurred. HOME CARE INSTRUCTIONS If you were given a dressing, you should change it at least once a day, or as instructed by your caregiver. If the bandage sticks, soak it off with a solution of hydrogen peroxide or soapy water. Twice a day, wash the area with soap and water and rinse with plain water to remove all soap. Pat (do not rub) dry with a clean towel. Look for signs of infection (see below). Re-apply prescribed creams or ointments as instructed. This will help prevent infection. This also helps keep the bandage from sticking. If the bandage becomes wet, dirty, or develops a foul smell, change it as soon as possible. Only take grno-ygs-enkjsmc or prescription medicines for pain, discomfort, or fever as directed by your caregiver. Have your sutures, andreia, or steri strips removed in 7-10 days. Steri strips will peel off from the outer edges toward the center and will eventually fall off. Report to your caregiverif the strips are falling off and the wound does not appear fully healed. SEEK MEDICAL CARE IF: There is redness, swelling, or increasing pain in the wound. There is a red line that goes up your arm or leg. Pus is coming from wound. You develop an unexplained oral temperature above , or as your caregiver suggests. You notice a foul smell coming from the wound or dressing. There is a breaking open of the wound (edges not staying together) before or after sutures have been removed. You notice something coming out of the wound such as wood or glass. The wound is on your hand or foot and you find that you are unable to properly move a finger or toe. There is severe swelling around the wound causing pain and numbness or a change in color in your arm, hand, leg, or foot. SEEK IMMEDIATE MEDICAL CARE IF: Pain is not controlled with prescribed medication or with acetaminophen or ibuprofen. There is severe swelling around the wound site. The wound splits open and bleeding recurs. You experience worsening numbness, weakness, or loss of function of any joint around or beyond the wound. You develop painful lumps near the wound or on the skin anywhere on your body. If you did not receive a tetanus shot today because you did not recall when your last one was given, make sure to check with your caregiver when you have your sutures removed to determine if you needone. MAKE SURE YOU: Understand these instructions. Will watch your condition. Will get help right away if you are not doing well or get worse. Document Released: 10/28/2006 Document Re-Released: 10/10/2009 [employer] Patient Information 2009 [employer]. Follow Up Care 11/05/2023 10:42:13 With:Natacha Henriquez Address:Unknown When:11/08/2023 11:20:22 Comments:stitches to be removed in 7-10 days [facility]06-24-2023 Evaluation note* Encounter Date Diagnosis Assessment Notes Treatment Notes Treatment Clinical Notes Apr, Sore throat (ICD-10 - J02.9) strep pos, see above. Apr, Strep throat (ICD-10 - J02.0) Pt is to take abx as prescribed. take with food. Informed pt they are contagious for first 24 hrs on medication. Push fluids and rest. Pt denied work note today. Pt is to take otc antipyretic prn for fever and aches. Change toothbrush after 2-3 days. Pt is to be re-evaluated after treatment if sx worsen or don''t improve by pcp. Pt is to call the office with any questions or concerns regarding dx and tx. Pt understood and agreed to treatment plan. [facility] Other 03-12-2023 Hospital Discharge instructions Patient Education 01/20/2023 10:17:12 Sore Throat, Kcgf-ky-Hwak Sore Throat When you have a sore throat, your throat may feel: Tender. Burning. Irritated. Scratchy. Painful when you swallow. Painful when you talk. Many things can cause a sore throat, such as: An infection. Allergies. Dry air. Smoke or pollution. Radiation treatment. Gastroesophageal reflux disease (GERD). A tumor. A sore throat can be the first sign of another sickness. It can happen with other problems, like: Coughing. Sneezing. Fever. Swelling in the neck. Most sore throats go away without treatment. Follow these instructions at home: Take ussw-wqq-mhqkimd medicines only as told by your doctor. ?If your child has a sore throat, do not give your child aspirin. Drink enough fluids to keep your pee (urine) pale yellow. Rest when you feel you need to. To help with pain: ?Sip warm liquids, such as broth, herbal tea, or warm water. ?Eat or drink cold or frozen liquids, such as frozen ice pops. ?Gargle with a salt-water mixture 3 4 times a day or as needed. To make a salt- water mixture, add 1tsp (3 6 g) of salt to 1 cup (237 mL) of warm water. Mix it until you cannot see the salt anymore. ?Suck on hard candy or throat lozenges. ?Put a cool-mist humidifier in your bedroom at night. ?Sit in the bathroom with the door closed for 5 10 minutes while you run hot water in the shower. Do not use any products that contain nicotine or tobacco, such as cigarettes, e- cigarettes, and chewing tobacco. If you need help quitting, ask your doctor. Wash your hands well and often with soap and water. If soap and water are not available, use hand business objects analyst. Contact a doctor if: You have a fever for more than 2 3 days. You keep having symptoms for more than 2 3 days. Your throat does not get better in 7 days. You have a fever and your symptoms suddenly get worse. Your child who is 3 months to 3 years old has a temperature of 102.2 F (39 C) or higher. Get help right away if: You have trouble breathing. You cannot swallow fluids, soft foods, or your saliva. You have swelling in your throat or neck that gets worse. You keep feeling sick to your stomach (nauseous). You keep throwing up (vomiting). Summary A sore throat is pain, burning, irritation, or scratchiness in the throat. Many things can cause a sore throat. Take skzu-yqw-hawlkpb medicines only as told by your doctor. Do not give your child aspirin. Drink plenty of fluids, and rest as needed. Contact a doctor if your symptoms get worse or your sore throat does not get better within 7 days. This information is not intended to replace advice given to you by your health care provider. Make sure you discuss any questions you have with your health care provider. Document Released: 08/06/2009 Document Revised: 03/30/2019 Document Reviewed: 03/30/2019 [employer] Patient Education 2020 [employer]. 01/20/2023 10:17:10 Antibiotic Resistance Antibiotic Resistance Antibiotics are medicines used to treat infections that are caused by bacteria. Antibiotic resistance means that the medicine no longer works against the bacteria. Resistance can develop if you use antibiotics the wrong way. When antibiotics are given in response to illnesses caused by viruses, like colds or the flu, many normal bacteria in the body are killed. Some bacteria that are not killed may develop resistance to the antibiotic. These bacteria may grow and cause infections that are resistant to some other antibiotics. If this happens, the bacteria can continue to grow and cause infection. What are the causes? Antibiotic resistance happens when bacteria come into contact with an antibiotic over and over again. Over time, the bacteria become resistant to the antibiotic. What increases the risk? This condition is more likely to develop in people who: Are repeatedly given antibiotics to treat viral infections. Do not take their antibiotic medicine as prescribed, such as not finishing all of the medicine. Need to take antibiotics often because of a long-term medical condition. Take medicines that weaken their body's defense system (immune system). Have surgery. Are elderly. Need a procedure that replaces some of the work that healthy kidneys do (dialysis). Have an organ transplant. Are being treated for cancer. Have a type of infection that is more likely to be caused by resistant bacteria. These include certain: ?Skin infections. ?STIs (sexually transmitted infections). ?Respiratory infections. ?Infections of the lining of the brain and spinal cord (meningitis). ?Gastrointestinal infections. Eat foods from animals that were treated with antibiotics. Antibiotic-resistant bacteria can be passed through the food. Live with or care for someone with an antibiotic-resistant infection. Are hospitalized for a long time or live in a long-term care facility. What are the signs or symptoms? The main symptom of this condition is having an infection that does not improve with normal treatment. The specific signs and symptoms that you have will depend on the type of infection, but they mayinclude: A fever. Warmth, redness, and tenderness around a wound or incision. Brown, yellow, or green drainage from a wound or incision. A bad smell coming from a wound or incision. Nausea, vomiting, and abdominal pain. How is this diagnosed? This condition may be diagnosed by: Your medical history. Your health care provider may suspect antibiotic resistance if your conditiondoes not improve after you have been treated for an infection. You may also have other tests, including: ?Analysis of a fluid or stool sample. This is done to identify bacteria under a microscope and determine what type of antibiotic will work against them (culture and sensitivity). ?Other blood tests and imaging tests. These are done to check if your infection has spread or has become more serious. How is this treated? Treatment for this condition depends on the nature of the specific infection. Treatment may include oral antibiotics that kill more types of bacteria (broad spectrum). Serious antibiotic-resistant infections may need to be treated in the hospital. In severe cases, this may include: ?Surgery to remove infected or damaged tissue. ?Antibiotics or other medicines given through an IV tube. Follow these instructions at home: Taking antibiotics correctly Understand when antibiotics are needed and when they are not needed. Do not ask for an antibiotic prescription if you have been diagnosed with a viral illness. Antibiotic medicine will not make your illness go away faster. Common viral illnesses include an ear infection, a sinus infection, the stomach flu, or bronchitis. Do not take antibiotics that are left over from a previous prescription. Do not take antibiotics that were prescribed for someone else. If you are prescribed an antibiotic: ?Take it exactly as told by your health care provider. Do not stop taking the medicine even if you start to feel better. ?If you have been taking it for more than 10 days, ask your health care provider or pharmacist if you should keep taking it. Do not save unused antibiotics to use at a later date. Get rid of unused medicine as told by your health care provider or pharmacist. Preventing infection If you have an infection, avoid close contact with people around you. Avoid using personal items that are used by other people, such as towels, razors, or bedding. Regularly disinfect doorknobs, food preparation surfaces, and bathrooms with bleach-containing products or solutions. Wash your hands with soap and water: ?After using the bathroom. ?Before and after caring for a wound or incision. ?Before and after preparing food. General instructions Stay up-to-date on vaccinations. Many vaccines prevent illnesses that are treated with antibiotics. Contact a health care provider if: You have a fever or chills. You are taking a new antibiotic and you are not getting better after a few days. You have three or more periods of diarrhea after starting a new antibiotic. You have increased warmth, redness, or tenderness around a wound. You have brown, yellow, or green drainage from a wound or incision. You have a bad-smelling wound or incision. You have new or worsening nausea, vomiting, or abdominal pain. Get help right away if: You develop a rash. Your mouth or tongue itches. You have a tight feeling in your throat. You have trouble breathing. You have chest pain or tightness. You are dizzy or you faint. This information is not intended to replace advice given to you by your health care provider. Make sure you discuss any questions you have with your health care provider. Document Released: 01/18/2004 Document Revised: 11/12/2018 Document Reviewed: 04/01/2017 [employer] Patient Education 2020 [employer]. 01/20/2023 10:17:08 Upper Respiratory Infection, Adult Upper Respiratory Infection, Adult An upper respiratory infection (URI) is a common viral infection of the nose, throat, and upper airpassages that lead to the lungs. The most common type of URI is the common cold. URIs usually get better on their own, without medical treatment. What are the causes? A URI is caused by a virus. You may catch a virus by: Breathing in droplets from an infected person's cough or sneeze. Touching something that has been exposed to the virus (contaminated) and then touching your mouth, nose, or eyes. What increases the risk? You are more likely to get a URI if: You are very young or very old. It is arline or winter. You have close contact with others, such as at a daycare, school, or health care facility. You smoke. You have long-term (chronic) heart or lung disease. You have a weakened disease-fighting (immune) system. You have nasal allergies or asthma. You are experiencing a lot of stress. You work in an area that has poor air circulation. You have poor nutrition. What are the signs or symptoms? A URI usually involves some of the following symptoms: Runny or stuffy (congested) nose. Sneezing. Cough. Sore throat. Headache. Fatigue. Fever. Loss of appetite. Pain in your forehead, behind your eyes, and over your cheekbones (sinus pain). Muscle aches. Redness or irritation of the eyes. Pressure in the ears or face. How is this diagnosed? This condition may be diagnosed based on your medical history and symptoms, and a physical exam. Your health care provider may use a cotton swab to take a mucus sample from your nose (nasal swab). This sample can be tested to determine what virus is causing the illness. How is this treated? URIs usually get better on their own within 7 10 days. You can take steps at home to relieve your symptoms. Medicines cannot cure URIs, but your health care provider may recommend certain medicines to help relieve symptoms, such as: Gsyh-wnc-mmbbeha cold medicines. Cough suppressants. Coughing is a type of defense against infection that helps to clear the respiratory system, so take these medicines only as recommended by your health care provider. Fever-reducing medicines. Follow these instructions at home: Activity Rest as needed. If you have a fever, stay home from work or school until your fever is gone or until your health care provider says you are no longer contagious. Your health care provider may have you wear a face mask to prevent your infection from spreading. Relieving symptoms Gargle with a salt-water mixture 3 4 times a day or as needed. To make a salt- water mixture, completely dissolve 1 tsp of salt in 1 cup of warm water. Use a cool-mist humidifier to add moisture to the air. This can help you breathe more easily. Eating and drinking Drink enough fluid to keep your urine pale yellow. Eat soups and other clear broths. General instructions Take fgld-gof-vwxmfdj and prescription medicines only as told by your health care provider. These include cold medicines, fever reducers, and cough suppressants. Do not use any products that contain nicotine or tobacco, such as cigarettes and e-cigarettes. If you need help quitting, ask your health care provider. Stay away from secondhand smoke. Stay up to date on all immunizations, including the yearly (annual) flu vaccine. Keep all follow-up visits as told by your health care provider. This is important. How to prevent the spread of infection to others URIs can be passed from person to person (are contagious). To prevent the infection from spreading: ?Wash your hands often with soap and water. If soap and water are not available, use hand business objects analyst. ?Avoid touching your mouth, face, eyes, or nose. ?Cough or sneeze into a tissue or your sleeve or elbow instead of into your hand or into the air. Contact a health care provider if: You are getting worse instead of better. You have a fever or chills. Your mucus is brown or red. You have yellow or brown discharge coming from your nose. You have pain in your face, especially when you bend forward. You have swollen neck glands. You have pain while swallowing. You have white areas in the back of your throat. Get help right away if: You have shortness of breath that gets worse. You have severe or persistent: ?Headache. ?Ear pain. ?Sinus pain. ?Chest pain. You have chronic lung disease along with any of the following: ?Wheezing. ?Prolonged cough. ?Coughing up blood. ?A change in your usual mucus. You have a stiff neck. You have changes in your: ?Vision. ?Hearing. ?Thinking. ?Mood. Summary An upper respiratory infection (URI) is a common infection of the nose, throat, and upper air passages that lead to the lungs. A URI is caused by a virus. URIs usually get better on their own within 7 10 days. Medicines cannot cure URIs, but your health care provider may recommend certain medicines to help relieve symptoms. This information is not intended to replace advice given to you by your health care provider. Make sure you discuss any questions you have with your health care provider. Document Released: 04/23/2002 Document Revised: 11/05/2019 Document Reviewed: 06/13/2018 [employer] Patient Education 2020 [employer]. [facility] 01-23-2023 Evaluation note* Encounter Date Diagnosis Assessment Notes Treatment Notes Treatment Clinical Notes Nov, Sore throat (ICD-10 - J02.9) Nov, Strep pharyngitis (ICD-10 - J02.0) Strep throat material was printed Drink plenty fluids, get plenty of rest. Take the amoxicillin as prescribed until gone. Off work today and tomorrow. Take Tylenol or Motrin as needed for aches pains or fevers. Follow-up with family physician if no improvement in 2 to 3 days [facility] Other 03-18-2022 Evaluation note* Encounter Date Diagnosis Assessment Notes Treatment Notes Treatment Clinical Notes Jan, Rupture of right tympanic membrane (ICD-10 - H72.91) Rx sent, use as directed. Recommended dry ear precautions with patient, nothing in affected ear or submerging head under water until resolution of s/s. 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 I advised that patient use new ear plugs every shift, do not insert deeply. Pt needs to f/u with PCP or ENT next week to monitor tx progress. Immediate eval if warning s/s of intractable pain, fevers, worsening hearing loss, ear drainage, which were discussed with pt while in clinic. Jan, Acute otitis media with effusion of both ears (ICD-10 - H65.193) [facility] Other 02-15-2022 NotePROCEDURE: [employer] HDXT 1.5. Sagittal T1, T2, STIR and axial T1 and T2 images through the cervical spine were performed without contrast administration. Comparison is made with the prior examination of February 14, 2021 (cervical spine MRI). FINDINGS: No change from the prior examination. Normal vertebral body alignment, height. No bone marrow edema or fracture. No soft tissue inflammatory changes. Similar, unremarkable posterior fossa contents and spinal cord. Several millimeter thickness epidural lipomatosis within the posterior cervical spine (C3 through the upper thoracic region). No new disc herniations, spinal canal or neural foraminal stenosis. Mild disc bulging (C5/6 and C7/T), /minimal change. Mild uncovertebral and facet arthropathy, greatest involvement C3/4. IMPRESSION: 1. Minimal change. No disc herniation, spinal canal or neural foraminal stenosis. 2. No significant soft tissue inflammation. Report reported and signed by Tho Salas on 12/26/2021 [facility]31[facility]* Encounter Date Diagnosis Assessment Notes Treatment Notes Treatment Clinical Notes Dec, Mass of left wrist (ICD-10 - R22.32) Marco returns today for follow-up of left wrist mass excision. He is now 6 weeks after surgery. His incision is benign. Gentle range of motion is well-tolerated today. He is now complaining of pain which is similar than prior to surgery. He shows me a spot which appears to be his carpus which is tender dorsally. This is exacerbated with wrist flexion. I do not feel any other soft tissue problem on exam. We have discussed limiting activities for a little bit longer and trying anti-inflammatori es. Consider MRI in future if not improved in another 6 weeks. The patient has been involved in our cooperative treatment plan and agrees to move forward with treatment at this time. Dec, Ganglion, left wrist (ICD-10 - M67.432) Dec, Left wrist pain (ICD-10 - M25.532) Dec, Other specified postprocedural states (ICD-10 - Z98.890) Patient may begin to progress activity. Avoid heavy lefting for the next few weeks. Discussed with patient we can order for occupational therapy. Patient states he is unable to afford occupational therapy at this time. Instructed patient to use ice and heat as needed to help with motion and swelling. Prescription for voltarn gel sent into patients pharmacy [facility] Other 12-08-2021 Evaluation note* Encounter Date Diagnosis Assessment Notes Treatment Notes Treatment Clinical Notes Oct, Mass of left wrist (ICD-10 - R22.32) Marco presents with left wrist mass, likely ganglion. At this juncture we have discussed the findings and diagnosis as well as personally reviewed appropriate imaging and performed interpretation of related testing and examination with the patient in office today. Prior medical notes Dr. March and history have been reviewed. We have discussed conservative treatment of this including aspiration/injection, splinting and anti-inflammatory medications. Patient would like to forego any conservative treatment and wants to have this removed secondary to discomfort with activities. At this juncture we have discussed the findings and diagnosis as well as reviewed appropriate imaging and performed interpretation of testing. Surgical intervention is recommended. Prior medical notes and history have been reviewed. Surgical versus non-operative management have been discussed in detail and non-operative management was given as an option. The risks of surgical intervention were given. Pre-operative optimization will be done prior to surgical procedure to limit valentine-operative risks. I have discussed the planned procedure, how and who performs the procedure, and the personnel involved. Cardiovascular, pulmonary, and other life threatening episodes can occur during surgery although there is a low risk of these happening. Surgical risks including bleeding, neurovascular injury, wound closure problems and infection were discussed. Valentine-operative risks including infection, bleeding, wound healing problems, and need for further surgery were discussed. It was discussed that there is a possibility of blood transfusion with any surgical procedure and the risks involved in receiving a blood transfusion. Possibility of, and need for, future bracing or DME use, physical or occupational therapy, mental therapy, rehabilitation, pain management and need for secondary procedures was discussed. I have warned against smoking and the use of tobacco products due to the risks associated with them, in particular, poor healing. 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 I have advised to follow all post-operative instructions in order to obtain the best outcome. Informed consent has been verbally affirmed and signed as indicated. The patient has been involved in our cooperative treatment plan and agrees to move forward with treatment at this time. Oct, Ganglion, left wrist (ICD-10 - M67.432) We will proceed with excision of mass Oct, Left wrist pain (ICD-10 - M25.532) Oct, Other See orders for this visit as documented in the electronic medical record. [facility] Other Evaluation + Plan note No data available for this section [facility] Care Evaluation noteNo assessment information available [facility] Work Phone: Evaluation note* Diagnosis Sleep deprivation- Primary Problems related to lack of adequate sleep Intractable chronic migraine without aura and without status migrainosus (CMS/HCC) Shift work sleep disorder Circadian rhythm sleep disorder, shift work type [facility] Diagnosis Chronic daily headache- Primary Headache Intractable chronic migraine without aura and without status migrainosus (CMS/HCC) Tension headache Shift work sleep disorder Circadian rhythm sleep disorder, shift work type Sleep deprivation Problems related to lack of adequate sleep Inadequate sleep hygiene Other specific disorder of sleep of nonorganic origin [facility] Diagnosis Intractable chronic migraine without aura and without status migrainosus (CMS/HCC)- Primary Shift work sleep disorder Circadian rhythm sleep disorder, shift work type Sleep deprivation Problems related to lack of adequate sleep [facility]* Diagnosis Intractable chronic migraine without aura and without status migrainosus (CMS/HCC)- Primary Inadequate sleep hygiene Other specific disorder of sleep of nonorganic origin documented in this encounter [facility] HealthcareHistory general Narrative - Reported* Type Description Date Surgical History alexei removal Surgical History fatty tumor removed from right side of back Surgical History maniscus repair 2018 Surgical History maniscus refastened and tumor r emoved from ACL 2019 Surgical History T&A FarFaria Other Hospital Discharge instructions No data available for this section [facility] Progress note No data available for this section [facility] Summary Purpose Family History No Family History Records Found Relationship Condition Age at Onset Recorded Date/T best father Diabetes mellitus Unknown Advance Directives No Advanced Directives Records Found Advance Directive Response Recorded Date/ Time Advance Directives No October 9:32am Reason for Referral Reason TM rupture, hearing loss Diagnosis 1 Rupture of right tym panic membrane (H72.91) Referral Organization [facility] Referring Provider First Name Sigrid Referring Provider Last Name Lee Referring Provider Specialty Nurse Pract itioner Referred Organization Unknown Facility Referred Provider Specialty Ear, Nose an d Throat Referral Priority Stat Chief Complaint and Reason for Visit Chief Complaint flu vaccine Additional Source Comments (unrecognized sect ion and content) No Status Records FoundNo Status Records FoundNo Status Records FoundNo Status Records FoundNo Status Records FoundNo Status Records FoundNo Status Records FoundNo Status Records Found INFORMATION SOURCE (unrecogn ized section and content) DATE CREATED AUTHOR 02/19/2019 [facility] DATE CREATED AUTHOR AUTHOR'S ORGANIZ ATION 12/19/2021 [facility] Center DATE CREATED AUTHOR AUTHOR'S ORGANIZ ATION 12/27/2021 [facility] Special[facility] DATE CREATED AUTHOR AUTHOR'S ORGANIZ ATION 04/04/2022 [facility] DATE CREATED AUTHOR AUTHOR'S ORGANIZ ATION 10/15/2023 [facility] DATE CREATED AUTHOR AUTHOR'S ORGANIZ ATION 01/05/2025 [facility] DATE CREATED AUTHOR AUTHOR'S ORGANIZ ATION 01/18/2025 [facility] ical Center DATE CREATED AUTHOR AUTHOR'S ORGANIZ ATION 01/24/2025 [facility] dical Specialists EPIC REASON FOR VISIT (unrecogniz ed section and content) Reason Comments Headache Specialty Diagnoses / Procedures Referred By Contac t Referred To Contact Neurology Diagnoses Migraine, unspecified, not intractable, without status migrainosus (CMS/HCC) Procedures DC OFFICE/OUTPATIENT NEW LOW MDM 30 MINUTES Natacha Henriquez MD [address] [id number] Mandeep Ortega MD [address] [id number] Referral ID Status Reason Start Date Expiration Date V isits Requested Visits Authorized [id number] Closed Consult and Treat 07/10/2024 01/06/2025 1 1 Reason Comments Migraine Care Teams (unrecognized sec tion and content) Jewelry Appraiser Relationship Specialty Start Date End Date Unallocated, Noms MD Ami [address] [place] [address] PCP - General Family Medicine 01/21/25 Natacha Henriquez MD [address] [place] [address] Referring Physician Family Medicine 07/21/24 Lorrie Toussaint DO [address] [place] [phone] Referring Physician Neurology 09/22/24 Nolvia Nice NP [address] [place] [address] Nurse Practitioner Neurology 11/24/24 Jewelry Appraiser Relationship Specialty Start Date End Date Natacha Henriquez MD [address] [place] [address] Referring Physician Family Medicine 07/21/24 Lorrie Toussaint DO [address] [place] [phone] Referring Physician Neurology 09/22/24 Personnel Name: Natacha Pringle Address: Address: [address] [place] [address]- Team Status: Active Member Role Status Cristy March MD Primary Care Provider Active Team Status: Inactive Member Role Status Cristy March MD Primary Care Provider Active Yakov Sanchez DO [facility] Attending Provider Active Goals (unrecognized section and content) Goals may be documented in a n alternate section FOR RECORDS PERTAINING TO PATIENTS WHO ARE OR HAVE BEEN ENROLLED IN A CHEMICAL DEPENDENCY/SUBSTANCEABUSE PROGRAM, SOME INFORMATION MAY BE OMITTED. This clinical summary was aggregated from multiple sources. Caution should be exercised in using it in the provision of clinical care. This summary normalizes information from multiple sources, and as a consequence, information in this document may materially change the coding, format and clinical context of patient data. In addition, data may be omitted in some cases. CLINICAL DECISIONS SHOULD BE BASED ON THE PRIMARY CLINICAL RECORDS. [facility] [employer] provides no warranty or guarantee of the accuracy or completeness of information in this document.
== END 2025-02-10 09:44 | disposition home or self-care (01) ==
LOC: MRI 09:43
PROVIDERS: PCP Nurse Practitioner
DX: G43.719 Chronic migraine without aura, intractable, without status migrainosus (principal)
CPT/HCPCS: 70551

== ENCOUNTER 2025-09-16 12:13 | Emergency (ER) | payer BC, SELFPAY ==
--- OUTSIDE RECORDS SUMMARY | 2025-09-11 12:33 | XMS_ITS | Encounter Summary ---
Author Organization [facility] Address [address] [place] [address] Care Team Providers Care Staffing Executive Name Role Phone Roel, Latri García APRN.[facility] Primary Care Provider Source Comments In the event this information is protected by the Federal Confidentiality of Alcohol and Drug AbusePatient Records regulations: The Federal rules restrict any use of the information to criminally investigate or prosecute any alcohol or drug abuse patient.[facility] Reason for Visit * ReasonCommentsFinger InjuryLeft thumb Encounter Details DateTypeDepartmentCare Team (Latest Contact Info)Lqfmaivckfb94/01/2025 1:33 PM EDT - 09/11/2025 3:14 PM EDTEmergenBrentwood [facility]al [facility] [address] [place] [address] [place] [address] [place] [address] Finger injury Discharge Disposition: Home Social History Tobacco UseTypesPacks/DayYears UsedDateSmoking Tobacco: Never AssessedHunger Vital SignAnswerDate RecordedWithin the past 12 months, you worried that your food would run out before you got the money to buymore.Never true09/11/2025Ran Out of Food in the Last YearNot on file09/11/2025rea Deprivation IndexAnswer Date RecordedNational Score (1-100), lower number is lower lexe573609/12/2025State Score (1-10), lower number is lower sxrr50311/12/2024Data from: https://www.neighborhoodatlas.medicine.[facility]/. Last address used for uizxdemogln[address]/12/2024Sex and Gender InformationValueDate Recorded Sex Assigned at BirthNot on fileLegal ZqhDcec8301/28/2025 9:06 AM EDTGender IdentityNot on fileSexual OrientationNot on filedocumented as of this encounter Last Filed Vital Signs Vital SignReadingTime TakenCommentsBlood Tvqhypry140/6509/11/2025 1:33 PM EDT Oxnoa456109/11/2025 1:33 PM BYOUhxfrnxonhc20.7 ??C (98 ??F)09/11/2025 1:33 PM EDT Respiratory Hxhs447311/11/2024 1:33 PM EDTOxygen Hqityqkobz73%09/11/2025 1:33 PM EDTInhaled Oxygen Concentration--Mwcvrb91.6 kg (180 lb)09/11/2025 1:32 PM EDT Ubtleb619.4 cm (6' 1 )09/11/2025 1:32 PM EDTBody Mass Index23.7509/11/2025 1:32 PM EDTdocumented in this encounter Discharge Instructions * Attachments The following attachments cannot be sent through Care Everywhere. * Needle Stick - Without Antivirals (LATVIAN) documented in this encounter ED Notes * Renetta Bernal RN - 09/11/2025 3:13 PM EDT Pt stable and ambulatory upon departure. Discharge instructions and details for follow up care given and reviewed. Pt verbalized understanding of medication's prescribed as well as how to follow up to continue their care. PT educated that they should return to the ED if their condition worsens. PT verbalized understanding of the education. Pt departed from ED. * Sd Rosales DO - 09/11/2025 1:36 PM EDT ED Provider Note Patient Name: Marco Mora : 2005 SERVICE DATE: 09/11/25 History Patient presents with: Finger Injury: Left thumb 20-year-old male presented emergency room with complaint of a left thumb injury. Patient was placing an IV bag when the weight needle poked through the palmar surface of his thumb. Patient noticed some pain associated with his thumb. Bleeding was controlled. No exchange of bodily fluids. No past medical history on file. No past surgical history on file. No family history on file. Social History[1] ALLERGIES No Known Allergies Review of Systems Constitutional: Negative for chills and fever. HENT: Negative for congestion. Eyes: Negative for visual disturbance. Respiratory: Negative for shortness of breath. Cardiovascular: Negative for chest pain. Gastrointestinal: Negative for abdominal pain. Genitourinary: Negative for difficulty urinating. Musculoskeletal: Positive for arthralgias. Negative for back pain. Skin: Positive for wound. Negative for rash. Neurological: Negative for dizziness and light-headedness. Physical Exam Vitals BP Pulse Temp Temp src Resp SpO2 Weight Height 09/11/25 1333 09/11/25 1333 09/11/25 1333 09/11/25 1333 09/11/25 1333 09/11/25 1333 09/11/25 1332 09/11/25 1332 122/65 67 36.7 ??C (98 ??F) Oral 18 99 % 81.6 kg (180 lb) 1.854 m (6' 1 ) Physical Exam Vitals and nursing note reviewed. Constitutional: General: He is not in acute distress. Appearance: He is well-developed. HENT: Head: Normocephalic and atraumatic. Eyes: General: Right eye: No discharge. Left eye: No discharge. Cardiovascular: Rate and Rhythm: Normal rate. Pulmonary: Effort: Pulmonary effort is normal. No respiratory distress. Abdominal: General: There is no distension. Palpations: Abdomen is soft. Tenderness: There is no abdominal tenderness. Musculoskeletal: General: No deformity. Normal range of motion. Skin: Comments: 0.25cm puncture wound on the palmar surface of first distal phalynx. Neurological: Mental Status: He is alert and oriented to person, place, and time. Diagnostic Testing ED Labs Ordered and Reviewed - No data to display Procedures ED Course / Clinical Impression Clinical Impressions as of 09/11/25 1336 Needle stick, hypodermic, accidental, initial encounter Pain of left thumb MDM / Disposition / Plan Patient present emergency room complaint of left thumb injury. 0.25 cm puncture wound on the distalphalanx. He had bleeding controlled. X-ray was obtained and showed no acute process. Finger wrappedand no suture needed. Follow up with PCP for further management. History and Record Review External record(s) reviewed: prior outpatient record. Findings from review of outpatient records: h Differential Diagnoses - thumb injury is more likely for the following reason(s): suggested by H&P - bodily fluid exchange is less likely for the following reason(s): H&P not suggestive Management I performed an independent interpretation of the following:imaging Imaging: My interpretation is no fracture Disposition The patient was discharged. Counseled patient regarding radiology results and suspected diagnosis. SIGNATURE: Sd Rosales DO - [1] Social History Tobacco Use Smoking status: Not on file Smokeless tobacco: Not on file Substance and Sexual Activity Alcohol use: Not on file Drug use: Not on file Sexual activity: Not on file SD ROSALES 09/11/25 1458 * Cyndi Almaguer RN - 09/11/2025 1:32 PM EDT Pt to ED for injury of left thumb documented in this encounter Miscellaneous Notes * [facility] - Racquel Mccray RT(R) - 09/11/2025 1:51 PM EDT Radiology Service Progress Note PATIENT NAME: Marco Mora DATE OF SERVICE: September 11, 2025 TIME: 1:51 PM PATIENT IDENTITY VERIFICATION COMPLETED USING TWO (2) IDENTIFIERS: Name and Date of confirmedby patient verbally and Name and Date of confirmed by identification band. FALL SCREENING: Has the patient had 2 falls in the last year or 1 fall with injury or currently using an Ambulatory Assistive Device (Walker, Cane, Wheelchair, Crutches, etc.)? Emergency Room Patient: Screened in ED PATIENT GENDER DATA: Assigned male at PATIENT RELEVANT IMPLANT DATA REVIEWED: Not Applicable PATIENT PRESENTS WITH AN IMPLANTABLE OR ATTACHED WET CHAR CONVEYOR TENDER: No RADIOLOGY DEPARTMENT: General X-ray: Exam(s) Completed: Upper Extremity X- Ray(s): Fingers/Thumb, left PERIPHERAL IV DATA: Not applicable SIGNED BY: RT Gilma(R) September 11, 2025 1:51 PM documented in this encounter Plan of Treatment Not on file documented as of this encounter Procedures Procedure NamePriorityDate/TimeAssociated DiagnosisCommentsXR DIGIT GENERAL 3V FRONTAL/LAT/OBL CVQSDQJE17/01/2025 1:50 PM EDT documented in this encounter Results * XR DIGIT GENERAL 3V FRONTAL/LAT/OBL LEFT (09/11/2025 1:50 PM EDT)Anatomical RegionLateralityModalityFingersRadiographic ImagingSpecimen (Source)Anatomical Location / LateralityCollection Method / VolumeCollection TimeReceived Time 09/11/2025 1:49 PM EDT Impressions 09/11/2025 2:35 PM EDT IMPRESSION: NO ACUTE BONY ABNORMALITY Transcribed Using Voice Recognition Transcribe Date/Time: Nov ??2024 ??2:32P Dictated by: GRICELDA JAIN MD This examination was interpreted and the report reviewed and electronically signed by: GRICELDA JAIN MD on Sep ??2024 ??2:33PM ??EST Narrative 09/11/2025 2:35 PM EDT * * *Final Report* * * DATE OF EXAM: Nov ??2024 ??1:49PM ?? EUX ?? 5318 ??- ??XR DIGIT 3V FRONTAL/LAT/OBL LT ??/ PROCEDURE REASON: Hand trauma, no prior imaging ? * * * * Physician Interpretation * * * * RESULT: HISTORY: ??Hand trauma, no prior imaging TECHNIQUE: ??3 views left thumb COMPARISON: ?? None. RESULT: There is no acute fracture. Joint spaces are preserved. No radiopaque foreign body identified in the soft tissue. No obvious focal soft tissue swelling. Procedure Note Provider, [facility] [place] - 09/11/2025 * * *Final Report* * * DATE OF EXAM: Sep 11 2025 1:49PM EUX 5318 - XR DIGIT 3V FRONTAL/LAT/OBL LT / PROCEDURE REASON: Hand trauma, no prior imaging * * * * Physician Interpretation * * * * RESULT: HISTORY: Hand trauma, no prior imaging TECHNIQUE: 3 views left thumb COMPARISON: None. RESULT: There is no acute fracture. Joint spaces are preserved. No radiopaque foreign body identified in the soft tissue. No obvious focal soft tissue swelling. IMPRESSION IMPRESSION: NO ACUTE BONY ABNORMALITY Transcribed Using Voice Recognition Transcribe Date/Time: Sep 11 2025 2:32P Dictated by: GRICELDA JAIN MD This examination was interpreted and the report reviewed and electronically signed by: GRICELDA JAIN MD on Sep 11 2025 2:33PM EST Authorizing ProviderResult TypeResult StatusRyan Nemunaitis DORAD-PAMAFinal Result documented in this encounter Visit Diagnoses Diagnosis Needle stick, hypodermic, accidental, initial encounter- Primary Pain of left thumb Pain in limb documented in this encounter Care Teams Team MemberRelationshipSpecialtyStart DateEnd Date [place], [employer] [address] [place] [address] PCP - GeneralNurse Practitioner01/28/25documented as of this encounter
[2025-09-16 12:16] VITALS: BP 162/91; PULSE 72; TEMP 36.8; O2SAT 100; BMI 24.4
--- NOTE | 2025-09-16 12:25 | XR_ITS ---
The [address] [address] Patient Name: KEV GÓMEZ MRN: [id number] date: 2005 Sex: M Assigned Patient Location: ER Current Patient Location: ED.MAIN Accession/Order Number: [id number] Exam Date: 09/16/2025 12:31 Report Date: 09/16/2025 12:47 At the request of: SINDI GRIFFITH MD Procedure: XR abdomen 1V Single frontal view abdomen INDICATION: Small bowel obstruction versus constipation COMPARISON: CT abdomen pelvis 07/28/2018 FINDINGS: Sxag-tr-jcsvaewf colonic stool burden greatest distally question distal constipation versus distal impaction. Small bowel loops are not well evaluated. No radiopaque calcification identified. Right pelvic phleboliths. Unremarkable appearance of the osseous structure. XR/XR abdomen 1V IMPRESSION: Jmas-xp-htxoxtrl Distal colonic stool may raise possibility for impaction versus constipation. Impression dictated by: Herbert Antonio M.D. 09/16/2025 12:47 PM Dictation Location: [place] [address] Electronically authenticated by: [id number] Y Date: 09/16/2025 12:47
--- OUTSIDE RECORDS SUMMARY | 2025-09-16 12:39 | XMS_ITS | Clinical Summary ---
Author Organization [facility] Address [address] [place] [address] Care Team Providers Care Drop Tester Name Role Phone Roel, La RIVET THROWER Unavailable Crystal Bolden DO Unavailable [phone] Nolvia Nice RIVET THROWER Unavailable [phone] Unallocated, Noms Provider MD Primary Care Provi dena Allergies Active AllergyReactionsCriticalityNoted DateCommentsBee LsjilWkblyan72/13/2024 Medications MedicationSigDispense QuantityRefillsLast FilledStart DateEnd DateStatus Ubrogepant (Ubrelvy) 100 MG tablet Indications:Intractable chronic migraine without aura and without status migrainosusTake one tab at migraine onset, may repeat in 2 hours if needed 10 tablet 5Active Additional Information Patient not taking.Reported on 01/21/2025 SUMAtriptan (Imitrex) 100 MG tablet Indications:Intractable chronic migraine without aura and without status migrainosus1 at the onset of the migraine and may repeat in 2 hours if needed max 2 days per week 2 doses per day 9 tablet 5Active tiZANidine (Zanaflex) 4 MG tablet Indications:Intractable chronic migraine without aura and without status migrainosusTake 1/2-1 at bedtime 30 tablet 5Active ondansetron ODT (Zofran-ODT) 4 MG disintegrating tablet Indications:Intractable chronic migraine without aura and without status migrainosusTake one tab every 8 hours as needed for migraine associated nausea and vomiting 20 tablet 5Active topiramate (Topamax) 25 MG tablet Indications:Intractable chronic migraine without aura and without status migrainosusTopamax tablet 25mg every hs X1 week, then 2 pills every hs X1 week ,then 3 pills po every hs X1 week , then go to the 100 mg 42 tablet 506Active topiramate (Topamax) 100 MG tablet Indications:Intractable chronic migraine without aura and without status migrainosusTake one tab at bedtime after titrated up 30 tablet 5Active mirtazapine (Remeron) 15 MG tablet Indications:Sleep deprivationTake 1/2-1 at bedtime 30 tablet 5Active Immunizations ImmunizationAdministration DatesNext DueDTaP / Hep B / IPV03/13/2004,2003 DTaP, Qrcikqrchot46/23/2009,12/04/2004,2003HPV 9-Kxmafz9206/26/2016HPV, Mwgdqdoelli48/20/2017Hep A, Bpgymuocbwt18/21/2010,06/02/2009Hep B, Adolescent or Saassfkit2003Hib (HbOC)12/04/2004,03/13/2004,2003,2003IPV 06/02/2009,2003Influenza, Juclxtjqysd61/02/2023,09/02/2019Influenza, injectable, MDCK, preservative free, cqksjhpygpdl31/30/2022,08/30/2018Influenza, injectable, quadrivalent, preservative free10/12/2019Influenza, live, intranasal 09/05/2007Influenza, seasonal, bdgfsbrloe86/11/2008,10/02/2006Influenza, seasonal, injectable, preservative free09/21/2015,12/04/2004MMR06/02/2009, 08/04/2004Meningococcal ACWY, cxkvslviywp18/17/2021,06/26/2016Meningococcal B, Omv11,06/27/2021Meningococcal CYC3V8406/27/2021Meningococcal MCV4P 06/26/2016Pneumococcal Conjugate PCV 7008/04/2004,03/13/2004,2003, 2003Polio, Rhqkljucjio64/23/2009,2003Tdap06/26/2016Varicella 06/02/2009,08/04/2004 Family History Medical HistoryRelationNameCommentsDepressionFatherHypertensionFatherDepression MotherRelationNameStatusCommentsFatherMother Social History Tobacco UseTypesPacks/DayYears UsedDateSmoking Tobacco: FormerSmokeless Tobacco: Never Tobacco Cessation:Counseling Given: Not Answered Sex and Gender InformationValueDate RecordedSex Assigned at BirthNot on file Legal ShxVeym2101/23/2023 6:39 PM EDTGender IdentityNot on fileSexual Orientation Not on file Last Filed Vital Signs Vital SignReadingTime TakenCommentsBlood Zmznclba811/80001/21/2025 9:52 AM EDT Rmwdv892701/21/2025 9:52 AM EDTTemperature--Respiratory Rate--Oxygen Vpucgovmnn57% 01/21/2025 9:52 AM EDTInhaled Oxygen Concentration--Feleck66.5 kg (184 lb) 01/21/2025 9:52 AM YYIQqwkdn555.3 cm (5' 11 )01/21/2025 9:52 AM EDTBody Mass Index25.66001/21/2025 9:52 AM EDT Plan of Treatment Health MaintenanceDue DateLast DoneCommentsCOVID-19 Vaccine ( season) , 05/16/2022Influenza Vaccine (#1), 08/12/2023, 09/09/2022, Additional history existsPneumococcal Vaccine: Pediatrics (0 to 5 Years) and At-Risk Patients (6 to 64 Years)Aged Out 08/04/2004, 03/13/2004, 2003, Additional history existsNo longer eligible based on patient's age to complete this topic Insurance Care Teams Team MemberRelationshipSpecialtyStart DateEnd Date Unallocated, Noms Provider, [address] [place], [place] [id number] [facility] - [facility]25 [place] NP [address] [place] [address] Referring PhysicianFamily Medicine07/21/24 Crystal Bolden DO [address] [place] [phone] Referring HoijxmwkpRxguvdvzq02/12/24 Nolvia Nice NP [address] [place] [phone] Nurse PractitionerNeurolog11/24/24
--- OUTSIDE RECORDS SUMMARY | 2025-09-16 12:39 | XMS_ITS | Encounter Summary ---
Author Organization [facility] Address [address] [place] [id number] Care Team Providers Care Scroll Saw Operator Name Role Phone Roel, Latri García APRN.[facility] Primary Care Provider Source Comments In the event this information is protected by the Federal Confidentiality of Alcohol and Drug AbusePatient Records regulations: The Federal rules restrict any use of the information to criminally investigate or prosecute any alcohol or drug abuse patient.[facility] Encounter Details DateTypeDepartmentCare Team (Latest Contact Info)Omiaeqvjmtt29/01/2025Travel Social History Tobacco UseTypesPacks/DayYears UsedDateSmoking Tobacco: Never AssessedHunger Vital SignAnswerDate RecordedWithin the past 12 months, you worried that your food would run out before you got the money to buymore.Never true09/11/2025Ran Out of Food in the Last YearNot on file09/11/2025rea Deprivation IndexAnswer Date RecordedNational Score (1-100), lower number is lower vtur841709/12/2025State Score (1-10), lower number is lower kagh48311/12/2024Data from: https://www.neighborhoodatlas.medicine.[facility].edu/. Last address used for [address] [address]/12/2024Sex and Gender InformationValueDate Recorded Sex Assigned at BirthNot on fileLegal PefTpbg2401/28/2025 9:06 AM EDTGender IdentityNot on fileSexual OrientationNot on filedocumented as of this encounter Plan of Treatment Not on file documented as of this encounter Visit Diagnoses Not on filedocumented in this encounter Care Teams Team MemberRelationshipSpecialtyStart DateEnd Date La Sev[place] APRN.PHARMACY INNOVATION ASSISTANT [address] [place] [address] PCP - GeneralNurse Practitioner01/28/25documented as of this encounter
--- OUTSIDE RECORDS SUMMARY | 2025-09-16 12:39 | XMS_ITS | Clinical Summary ---
Author Organization [facility] Address [address] [place] [address] Care Team Providers Care Buffer Copper Name Role Phone [place] APRN.SOCIAL SECURITY BENEFITS INTERVIEWER Primary Care Provider Allergies No known active allergies Encounters DateTypeDepartmentCare BqycTnfwgsdrkpr82/01/2025 1:33 PM EDT - 09/11/2025 3:14 PM EDTEmergency [facility] [id number] [id number] Sd Rosales DO Finger injury Discharge Disposition: Home09/11/2025Travelfrom Last 3 Months Immunizations ImmunizationAdministration DatesNext Dueinfluenza (IIV3) vaccine, trivalent, PF (AFLURIA, FLUARIX, FLULAVAL, FLUVIRIN, FLUZONE)08/11/2025 Social History Tobacco UseTypesPacks/DayYears UsedDateSmoking Tobacco: Never AssessedHunger Vital SignAnswerDate RecordedWithin the past 12 months, you worried that your food would run out before you got the money to buymore.Never true09/11/2025Ran Out of Food in the Last YearNot on file09/11/2025rea Deprivation IndexAnswer Date RecordedNational Score (1-100), lower number is lower fqro224909/12/2025State Score (1-10), lower number is lower ogew17411/12/2024Data from: https://www.neighborhoodatlas.medicine.[facility].edu/. Last address used for [address] [address]/12/2024Sex and Gender InformationValueDate Recorded Sex Assigned at BirthNot on fileLegal SvxTsjb4901/28/2025 9:06 AM EDTGender IdentityNot on fileSexual OrientationNot on file Last Filed Vital Signs Vital SignReadingTime TakenCommentsBlood Rycqccxk244/6511 1:33 PM EDT Gphgr673209/11/2025 1:33 PM IDKCplufnhdxzg48.7 ??C (98 ??F)09/11/2025 1:33 PM EDT Respiratory Onrk106811/11/2024 1:33 PM EDTOxygen Wafmvilugh61%09/11/2025 1:33 PM EDTInhaled Oxygen Concentration--Mlbxoh79.6 kg (180 lb)09/11/2025 1:32 PM EDT Ugnfbu324.4 cm (6' 1 )09/11/2025 1:32 PM EDTBody Mass Index23.7509/11/2025 1:32 PM EDT Plan of Treatment Health MaintenanceDue DateLast DoneCommentsPeds To Adult Transition Initial Sunywibpxd55/19/2015Peds To Adult Transition Annual Zjuahjcsfa97/19/2017Anxiety Rnhxjozun28/19/2021epression Mziadbdwo27/19/2021HIV Dwucpqwfa90/19/2021 Hepatitis C Jwanwnvgb14/19/2021ovid-19 Vaccine ( season)2025 06/06/2022, 2DTaP,Tdap,Td Vaccine (7 - Td or Tdap)6006/26/2016, 06/02/2009, 12/04/2004, Additional history existsHPV HxewdueDrzapeflj62/20/2017, 06/26/2016Meningococcal B XomcrpcAmkwjpmte20/05/2021, 06/27/2021Hepatitis B ZegkfuoQtbngukqm72/28/2025, 03/13/2004, 2003, Additional history exists Influenza MmdhfboToyacqkvk38/01/2025, 08/07/2024, 08/12/2023, Additional history exists Procedures Procedure NamePriorityDate/TimeAssociated DiagnosisCommentsXR DIGIT GENERAL 3V FRONTAL/LAT/OBL BGGROSOF85/01/2025 1:50 PM EDT from Last 3 Months Results * XR DIGIT GENERAL 3V FRONTAL/LAT/OBL LEFT (09/11/2025 1:50 PM EDT)Anatomical RegionLateralityModalityFingersRadiographic ImagingSpecimen (Source)Anatomical Location / LateralityCollection Method / VolumeCollection TimeReceived Time 09/11/2025 1:49 PM EDT Impressions 09/11/2025 2:35 PM EDT IMPRESSION: NO ACUTE BONY ABNORMALITY Transcribed Using Voice Recognition Transcribe Date/Time: Sep ??2024 ??2:32P Dictated by: GRICELDA JAIN MD This examination was interpreted and the report reviewed and electronically signed by: GRICELDA JAIN MD on Nov ??2024 ??2:33PM ??EST Narrative 09/11/2025 2:35 PM EDT * * *Final Report* * * DATE OF EXAM: Sep ??2024 ??1:49PM ?? EUX ?? [id number] ??- [...] focal soft tissue swelling. Procedure Note Provider, [facility] - 09/11/2025 * * *Final Report* * [...] Authorizing ProviderResult TypeResult StatusRyan Nemunaitis DORAD-PAMAFinal Result from Last 3 Months Insurance Care Teams Team MemberRelationshipSpecialtyStart DateEnd Date [place] Se[place] APRN.SOCIAL SECURITY BENEFITS INTERVIEWER [address] [phone] PCP - GeneralNurse Practitioner01/28/25
--- OUTSIDE RECORDS SUMMARY | 2025-09-16 12:47 | XMS_ITS | CCD ---
Author Organization [facility] [place] [facility] Care Team Providers Care Record Changer Name Role Phone PHYSICIAN, DEFAULT Admitting Unavailable PHYSICIAN, DEFAULT Attending Unavailable BILL HURT Admitting Unavailable BILL HURT Attending Unavailable RADHAMES ORTIZ Referring Unavailable RAFITA MARCH Primary Care Unavailable NE Procedure Practitioner Unavailab BILL Marte Surgeon Unavailable NE Procedure Practitioner Unavailab SANDEE Jarrell Surgeon Unavailable BILL HURT Admitting Unavailable BILL HURT Attending Unavailable BILL HURT Referring Unavailable RAFITA MARCH Primary Care Unavailable RAFITA MARCH Primary Care Unavailable JOAQUIM, DR RAFITA Flood Attending Unavailable JOAQUIM, DR RAFITA Flood Primary Care Unavailable MARCH, DR RAFITA Flood Admitting Unavailable JOAQUIM, DR RAFITA Flood Admitting Unavailable MARCH, DR RAFITA Flood Attending Unavailable MARCH, DR RAFITA Flood Consulting Unavailable MARCH, DR RAFITA Flood Primary Care Unavailable ZIEBER, DR MANDEEP Bridges Consulting Unavailable KIN CHRISTIANSON Admitting Unavailable MISC, DR BAKER Primary Care Unavailable KIN CHRISTIANSON Attending Unavailable Tyson Pires Unavailable Sigrid Lee Unavailable Cassandra Allen Unavailable NONE, XXXX Primary Care Physician Unavailab Ally Zafar Unavailable MD Rafita March Primary Care Provider [phone] DO Yakov Sanchez Attending Provider [phone] Yakov Sanchez Attending Unavailable Yakov Sanchez Admitting Unavailable Rafita March Primary Care Unavailable Natacha Sevilla Primary Care Physician Natacha Sevilla MD Unavailable Yuan WHEATLEY, Lorrie Unavailable Tex BRIDGE INSPECTORNolvia Unavailable Unallocated MD, Noms Provider Primary Care Darrel fernandes NOLVIA NICE Attending Unavailable YUAN, LORRIE Attending Unavailable MARTINEZ, NATACHA Referring Unavailable YUAN, LORRIE Attending Unavailable NOLVIA NICE Attending Unavailable Provider, None Primary Care Unavailable Martinez, Natacha L Attending Unavailable Martinez, Natacha L Attending Unavailable Martinez, Natacha L Attending Unavailable Martinez, Natacha L Attending Unavailable Martinez, Natacha L Attending Unavailable JERSON, LAYLA Marie Attending Unavailable MARY GRACE, Sreedhar Attending Unavailable MARY GRACE, Sreedhar Attending Unavailable Bordner, Trini C Admitting Unavailable Bordner, Trini C Attending Unavailable Martinez, Natacha L Admitting Unavailable Martinez, Natacha L Attending Unavailable Bordner, Trini C Attending Unavailable Rashard Freeman Attending Unavailable Martinez, Natacha L Attending Unavailable Martinez, Natacha L Attending Unavailable Martinez, Natacha L Attending Unavailable Martinez, Natacha L Admitting Unavailable Bordner, Trini C Attending Unavailable Thu Ospina Attending Unavailable Bordner, Trini C Attending Unavailable Bordner, Trini C Admitting Unavailable NEMUNASERAFIN GARCIA Attending Unavailable MARTINEZ, NATACHA LONGORIA Primary Care Unavailable Allergies Allergy ClassificationReported Allergen(s)Allergy TypeDate of OnsetReaction(s) Facility (2 sources)bee venomDrug allergy (disorder)91-45-2585[facility] (10 sources)Bee/Wasp/Ant venom; Translations: [Bee Stings]Propensity to adverse reactionsEruption of skin (disorder)[facility] Repository (5 sources)Seasonal allergyPropensity to adverse reactionsUnknowSullivan County Memorial Hospital Postini Other (2 sources)venom-honey bee; Translations: [venom-honey bee]Allergy to substance 91-49-7176IzwizofkwpuAjtjyomffWestern [facility] (8 sources)Honey bee venomAllergy to dkypwkjap75-48-2973WmhygcvJLFV Healthcare (2 sources)No Known Medication Allergies; Translations: [No Known Medication Allergies]Propensity to adverse reactions (disorder)[facility] Repository Medications Current Medications MedicationDrug Class(es)DatesSig (Normalized)Sig (Original)amitriptyline hydrochloride 25 mg oral tablet (14 sources)Tricyclic AntidepressantStart: 09-22-2024 End: 72-58-4910clod 2 tablets by mouth once at bedtimeamitriptyline (Elavil) 25 MG tablet Indications: Intractable chronic migraine without aura and without status migrainosus (CMS/HCC) 2 po q hs 90 tablet 1 09/22/2024 01/21/2025 Discontinued (Therapy completed)Start: 05-62-6461hkrdgkghptiqh Oral, Refills(s) 0 Start Date: 09/01/24 Status: OrderedStart: 07-21-2024 End: 92-67-5395aypr 1 tablet by mouth once dailyamitriptyline (Elavil) 25 MG tablet Indications: Intractable chronic migraine without aura and without status migrainosus (CMS/HCC) , Tension headache Take 1 tablet (25 mg) by mouth Daily 90 tablet 09/22/2024 Discontinued (Reorder)amoxicillin 875 mg oral tablet (2 sources)Penicillin-class AntibacterialStart: 23-45-8973abyi 1 tablet by mouth every twelve hoursAmoxicillin 875 MG 1 tablet Orally Twice a day for 10 day(s) Apr, ActiveStart: 42-77-9949otie 1 capsule by mouth every eight hours Amoxicillin 500 MG 1 capsule Orally three times a day for 10 day(s) Nov, Activeatogepant 60 MG Oral Tablet [Qulipta] (1 source)Start: 82-15-8146Pugaokm 60 mg oral tablet Refills(s) 0 Start Date: 07/10/25 Status: Ordered Repeat number: 1brompheniramine maleate 0.4 mg/ml / dextromethorphan hydrobromide 2 mg/ml / pseudoephedrine hydrochloride 6 mg/ml oral solution (2 sources)alpha-Adrenergic Agonist, Uncompetitive R-jptogd-D-aspartate Receptor Antagonist, Sigma-1 AgonistStart: 10-22-2024 End: 68-63-2779mnmx 10 mL by mouth four times dailyBromfed DM oral syrup 10 mL, Oral, QID for 5 day(s), 200 mL, Refill(s) 0, [facility]/pharmacy #[id number], 182, cm, 10/22/24 10:47:00 EST, Height/Length Dosing, 87.1, kg, 10/22/24 10:47:00 EST, Weight Dosing Start Date: 10/22/24 Stop Date: 10/27/24 Status: Ordered ciprofloxacin 2 mg/ml otic solution (1 source)Quinolone AntimicrobialStart: 64-00-3569Pndbwribzvaxn HCl 0.2 % 1-2 drops into affected ear Otic every 12 hrs for 7 day(s) Jan, Active diclofenac sodium 0.01 mg/mg topical gel (1 source)Nonsteroidal Anti-inflammatory DrugStart: 07-37-4271Cegffggwmp Sodium 1 % apply 1-2 grams to left wrist Externally BID for 30 days Dec, Active fluticasone propionate 0.05 mg/actuat metered dose nasal spray (1 source)CorticosteroidStart: 29-23-6348euun 1 spray(s) nasal route once daily Fluticasone Propionate 50 MCG/ACT 1 spray in each nostril Nasally Once a day for 14 day(s) Jan, ActivehydrOXYzine hydrochloride 50 mg oral tablet (2 sources)AntihistamineStart: 77-84-6204tzjg 1 tablet by mouth at bedtime hydrOXYzine hydrochloride 50 mg oral tablet See Instructions, TAKE 1 TABLET BY MOUTH AT BEDTIME, # 90 tab(s), Refills(s) 1, Pharmacy: [id number], 182, cm, 03/17/25 15:09:00 EDT, Height/Length Dosing, 87.6, kg, 03/17/25 15:09:00 EDT, Weight Dosing Start Date: 04/08/25 Status: Ordered Quantity: 90.0 Unit: tab(s) Repeat number: 1Ibuprofen (2 sources)Nonsteroidal Anti-inflammatory DrugIbuprofen ActivemethylPREDNISolone (5 sources)CorticosteroidStart: 01-21-2025 End: 45-94-5598twfbmqAMQVESBauxtc (Medrol Dospak) 4 MG tablets Indications: Intractable chronic migraine without aura and without status migrainosus (CMS/HCC) Follow schedule on package instructions 21 tablet 01/21/2025 01/28/2025 ActiveStart: 79-33-5844Effw-Medrol 80 mg Jun, 80 mg ondansetron 4 mg disintegrating oral tablet (2 sources)Serotonin-3 Receptor AntagonistStart: 75-45-2001kaprpkxnwam ODT (Zofran-ODT) 4 MG disintegrating tablet Indications: Intractable chronic migraine without aura and without status migrainosus (CMS/HCC) Take one tab every 8 hours as needed for migraine associated nausea and vomiting 20 tablet 01/21/2025 ActiveStart: 76-46-6734zfzppfergod ODT (Zofran-ODT) 4 MG disintegrating tablet Indications: Intractable chronic migraine without aura and without status migrainosus (CMS/HCC) Take one tab every 8 hours as needed for migraine associated nausea and vomiting 20 tablet 01/21/2025 ActivepredniSONE 20 mg oral tablet (3 sources)Start: 07-19-2025 End: 86-35-0091hoyt 2 tablets by mouth once daily at mealtimepredniSONE 20 mg Tab 40 mg = 2 tab(s), Oral, Daily, with food or milk, X 5 day(s), # 10 tab(s), Refills(s) 0, Pharmacy: [facility]/pharmacy #[id number], 182, cm, 07/19/25 9:17:00 EDT, Height/Length Dosing, 82.7, kg, 07/19/25 9:17:00 EDT, Weight Dosing Start Date: 07/19/25 Stop Date: 07/24/25 Status: Ordered Quantity: 10.0 Unit: tab(s) Repeat number: 1 Indications: Wheezing; Acute bronchitis, unspecified; Cough, u nspecified;Start: 10-22-2024 End: 11-39-1059wadi 2 tablets by mouth once daily at mealtimepredniSONE 20 mg Tab 40 mg = 2 tab(s), Oral, Daily, with food or milk, X 5 day(s), # 10 tab(s), Refills(s) 0, Pharmacy: [facility]/pharmacy #[id number], 182, cm, 10/22/24 10:47:00 EST, Height/Length Dosing, 87.1,kg, 10/22/24 10:47:00 EST, Weight Dosing Start Date: 10/22/24 Stop Date: 10/27/24 Status: OrderedtiZANidine 4 mg oral tablet (5 sources)Central alpha-2 Adrenergic AgonistStart: 33-09-1185puZIOklyjt (Zanaflex) 4 MG tablet Indications: Intractable chronic migraine without aura and without status migrainosus (CMS/HCC) Take 1/2-1 at bedtime 30 tablet 5 11/24/2024 Activetopiramate 25 mg oral tablet (4 sources)Start: 01-21-2025 End: 04-06-0140hrns 1 tablet by mouth once at bedtimetopiramate (Topamax) 25 MG tablet Indications: Intractable chronic migraine without aura and without status migrainosus (CMS/HCC) Topamax tablet 25mg every hs X1 week, then 2 pills every hs X1 week ,then 3 pills po every hs X1 week , then go to the 100 mg 42 tablet 01/21/2025 01/21/2026 ActiveStart: 97-92-4673zeqeaczasi (Topamax) 100 MG tablet Indications: Intractable chronic migraine without aura and without status migrainosus (CMS/HCC) Take one tab at bedtime after titrated up 30 tablet 2 01/21/2025 ActiveStart: 68-11-5494vsgcgmotfs (Topamax) 100 MG tablet Indications: Intractable chronic migraine without aura and without status migrainosus (CMS/HCC) Take one tab at bedtime after titrated up 30 tablet 2 01/21/2025 ActivetraMADol hydrochloride 50 mg oral tablet (1 source)Opioid AgonistStart: 63-49-5873ixbm 50 mg by mouth every four hours Tramadol Active 50 MG PO Q4H 30 05November 07, 2021 1:00amtraZODone hydrochloride 50 mg oral tablet (2 sources)Serotonin Reuptake InhibitorStart: 06-85-8954ckvc 1 tablet by mouth once daily at bedtimetraZODONE 50 mg Tab 50 mg = 1 tab(s), Oral, Once a day (at bedtime), # 30 tab(s), Refills(s) 1, Pharmacy: [facility]/pharmacy #[id number], 182, cm, 03/02/25 14:53:00 EDT, Height/Length Dosing, 87.2, kg, 03/02/25 14:53:00 EDT, Weight Dosing Start Date: 03/02/25 Status: Ordered Quantity: 30.0 Unit: tab(s) Repeat number: 2 Indications: Insomnia, unspecified;ubrogepant 100 mg oral tablet (5 sources)Start: 68-77-6216Esnvnjffjd (Ubrelvy) 100 MG tablet Indications: Intractable chronic migraine without aura and without status migrainosus (CMS/HCC) Take one tab at migraine onset, may repeat in 2 hours if needed 10 ta blet 5 11/24/2024 ActiveVentolin HFA 90 mcg/inh Aerosol-Adpt (1 source)Start: 07-19-2025 End: 30-40-9875mrou 2 puff(s) by inhalation every four hours for wheezing Ventolin HFA 90 mcg/inh Aerosol-Adpt 2 puff(s), Inhalation, q4hr for wheezing, 8 gm, Refill(s) 0, [facility]/pharmacy #[id number], 182, cm, 07/19/25 9:17:00 EDT, Height/Length Dosing, 82.7, kg, 07/19/25 9:17:00 EDT, Weight Dosing Start Date: 07/19/25 Stop Date: 07/26/25 Status: Ordered Quantity: 8.0 Unit: g Repeatnumber: 1 Indications: Wheezing; Completed/Discontinued Medications MedicationDrug Class(es)DatesSig (Normalized)Sig (Original)ISOtretinoin 30 mg oral capsule (1 source)RetinoidStart: 11-06-2019 End: 50-87-9848guyy 1 capsule by mouth twice dailyIsotretinoin (Absorica) 30 mg capsule Discontinued 30 MG PO Twice daily November 06, 2019 1:00am November 07, 2021 7:56amSUMAtriptan 100 mg oral tablet (20 sources)Serotonin-1b and Serotonin-1d Receptor AgonistStart: 73-42-6502ilse 2 tablets by mouth every weekSUMAtriptan 100 mg Tab 100 mg = 1 tab(s), Oral, Once, TAKE ONE TABLET AT ONSET OF MIGRAINE AND MAY REPEAT IN 2 HOURS IF NEEDED. MAX 2 TABS/DAY2 DAYS/WEEK, # 9 tab(s), Refills(s) 1, Pharmacy: [facility]/pharmacy #[id number], 182, cm, 02/11/25 10:13:00 EDT, Height/Length Dosing, 83.9, kg, 02/11/25 10:13:00 EDT, Weight Dosing Start Date: 02/11/25 Status: Ordered Quantity: 9.0 Unit: tab(s) Repeat number: 2Start: 10-15-2024 End: 32-00-5191VFQMbhahgeb (Imitrex) 100 MG tablet Indications: Intractable chronic migraine without aura and without status migrainosus (CMS/HCC) 1 at the onset of the migraine and may repeat in 2 hours if needed max 2 days per week 2 doses per day 9 tablet 5 11/24/2024 ActiveStart: 09-22-2024 End: 86-75-0867GEFDkakqnre (Imitrex) 20 MG/ACT nasal spray Indications: Intractable chronic migraine without aura and without status migrainosus (CMS/HCC) 1 spray in 1 nostril at onset of migraine may repeat in other nostril in 2 hours if needed max 2 days per week. 6 each 2 09/22/2024 01/21/2025 Discontinued (Therapy completed)Start: 93-54-2959HNCSrcqokpc (Imitrex) 100 MG tablet Indications: Intractable chronic migraine without aura and without status migrainosus (CMS/HCC) , Tension headache 1 at the onset of the migraine and may repeat in2 hours if needed max 2 days per week 2 doses per day 9 tablet 2 09/02/2024 ActiveStart: 51-95-1041snobsgljqcb Oral, Refills(s) 0 Start Date: 09/01/24 Status: OrderedStart: 10-97-7862XSUQbeqjmmh (Imitrex) 100 MG tablet Indications: Intractable chronic migraine without aura and without status migrainosus (CMS/HCC) , Tension headache 1 at the onset of the migraine and may repeat in2 hours if needed max 2 days per week 2 doses per day 9 tablet 2 07/21/2024 ActiveStart: 62-92-2116NAZYwulyciz (Imitrex) 100 MG tablet Indications: Intractable chronic migraine without aura and without status migrainosus (CMS/HCC) , Tension headache 1 at the onset of the migraine and may repeat in2 hours if needed max 2 days per week 2 doses per day 9 tablet 2 07/21/2024 Active Problems Active Problems Problem ClassificationProblemDateDocumented DateEpisodic/ChronicAcute bronchitis (1 source)Acute bronchitis; Translations: [Acute bronchitis, unspecified]Onset: 99-39-0274ScehxnxdK Codes: Cut/pierceb (1 source)Contact with hypodermic needle, initial encounter; Translations: [Needle stick, hypodermic, accidental, initial encounter]Onset: 09-11-2025 EpisodicHeadache; including migraine (15 sources)Chronic intractable migraine without aura; Translations: [Chronic migraine without aura, intractable, without status migrainosus]84-08-7377Uwrhtrm Joint disorders and dislocations; trauma-related (5 sources)Patellofemoral syndrome of right knee; Translations: [Patellofemoral disorders, right knee]ChronicMalaise and fatigue (7 sources)Other fatigue; Translations: [Fatigue]Onset: EpisodicOpen wounds of extremities (1 source)Laceration of hand without foreign body; Translations: [Laceration without foreign body of unspecified hand, initial encounter]Onset: 11-05-2023 EpisodicOther connective tissue disease (1 source)Pain in left finger(s); Translations: [Pain of left thumb]Onset: 60-89-7991DujfvxapPwcit lower respiratory disease (2 sources)Cough; Translations: [Acute cough]Onset: 49-48-1439IlqnkaskOslmo lower respiratory disease (1 source)Dyspnea; Translations: [Shortness of breath]Onset: 92-93-5526Igkhugis Other lower respiratory disease (1 source)Wheezing; Translations: [Wheezing]Onset: 80-60-5670LfdsdlfyAipxe nervous system disorders (6 sources)Circadian rhythm sleep disorder of shift work type; Translations: [Circadian rhythm sleep disorder,shift work type]09-25-3667BsrjxczYpthz nutritional; endocrine; and metabolic disorders (6 sources)Overweight in adulthood with body mass index of 25 or more but less than 30; Translations: [Body mass index (BMI) 27.0-27.9, adult]Onset: 10-22-2024 19-67-9517BsjnggbgXzudo nutritional; endocrine; and metabolic disorders (3 sources)Body mass index 25-29 - mvuxzlluqq62-82-0754SrssqszwEbnhz upper respiratory disease (6 sources)Seasonal kiuqbnc27-30-1458ZehbkluJcexx upper respiratory disease (1 source)Seasonal allergic rhinitis; Translations: [Other seasonal allergic rhinitis]Onset: 50-60-3597InyjikoTutix upper respiratory infections (11 sources)Acute recurrent maxillary sinusitis; Translations: [Acute pharyngitis, unspecified]Onset: 41-14-0901TypcshwgAdfhxjez codes; unclassified (1 source)Past history of procedure; Translations: [Other specified postprocedural states]33-95-8293VhqijvluPsmdudgt codes; unclassified (6 sources)Sleep deprivation; Translations: [Sleep deprivation]09-22-2024 EpisodicResidual codes; unclassified (4 sources)Inadequate sleep hygiene; Translations: [Inadequate sleep hygiene] 52-21-9358LkbctkfiAgrkzlrk codes; unclassified (3 sources)Ynnmwajk22-73-7066SuialutqLhyhiaqfo and history of mental health and substance abuse codes (3 sources)Cy-ozggsw05-53rbkfnb40-50-9993XknfdajyZvpwjzpoice; intervertebral disc disorders; other back problems (3 sources)Neck qfvg20-32-3596FfpndqfcHxjyohdcqviu (1 source)INSTABILITY OF RIGHT SHOULDER JOIOnset: 00-28-0118Qoxpdyvroigy (1 source)INSTABILITY OF RIGHT SHOULDER JOINTOnset: 06-98-2947Nycobjilhnyw (3 sources)CONTACT W/AND (SUSP) EXPOS COVID-19; Translations: [CONTACT W/AND (SUSP) EXPOS COVID-19]Onset: 66-73-9260Ipdycvibwdxa (2 sources)Body mass index 20-24 - twerkz33-87-2778Usikbfjrwfdb (1 source)Encounter for immunization; Translations: [Encounter for immunization] Onset: 54-56-4328Cygrsfbuekjh (6 sources)Patient encounter dkoafk60-49-4223 Past or Other Problems Problem ClassificationProblemDateDocumented DateEpisodic/ChronicHeadache; including migraine (2 sources)Chronic daily headache; Translations: [Chronic daily headache] 65-18-8241ZzpspiqwUpmsn connective tissue disease (1 source)Incomplete rotator cuff tear or rupture of right shoulder, not specified as traumatic; Translations: [INCOMPLETE ROTATR-CUFF TEAR/RUPTR OF R SHOULDER, NOT TRAUMA]Onset: 10-59-4780FwhqivjvWdsck connective tissue disease (1 source)Impingement syndrome of right shoulder; Translations: [IMPINGEMENT SYNDROME OF RIGHT SHOULDER]Onset: 20-11-0430TnuoiwnzRbkfh connective tissue disease (2 sources)Ganglion, left wristOnset: 10-18-2021 Resolved: 45-49-0203FxrbvfliLlwqu non-traumatic joint disorders (4 sources)Other instability, right shoulder; Translations: [OTHER INSTABILITY, RIGHT SHOULDER]Onset: 34-24-6469ApeliwkeBivyp non-traumatic joint disorders (2 sources)Pain in left wristOnset: 10-18-2021 Resolved: 88-18-2264VodeejlfEnnqx skin disorders (2 sources)Localized swelling, mass and lump, left upper limbOnset: 10-18-2021 Resolved: 98-84-7508MqigmpaiMwrhbh media and related conditions (2 sources)Unspecified perforation of tympanic membrane, right ear; Translations: [Other acute nonsuppurative otitis media, bilateral]Onset: 01-26-2022 Resolved: 78-28-5542SzjzvphiXdzytoqv codes; unclassified (1 source)Other specified postprocedural statesOnset: 12-25-2021 Resolved: 20-98-9131BwmixtvvQbepolv and strains (1 source)Superior glenoid labrum lesion of right shoulder, initial encounter; Translations: [SUPERIOR GLENOID LABRUM LESION OF RIGHT SHOULDER, INIT]Onset: 50-28-8307SrmxetwwOepjaetzsejv (1 source)CONTACT W/AND (SUSP) EXPOS COVID-19; Translations: [CONTACT W/AND (SUSP) EXPOS COVID-19]Onset: 09-04-2021 Results Test NameValueInterpretationReference RangeFacilityALLFormerly [facility] 09-11-2025 ALLIED HEALTHHNO ID: [id number] Author: GITA ESPINOSA RT(R) Service: Radiology Author Type: Technologist Type: Allied Health Filed: 09/11/2025 13:51 Note Text: Radiology Service Progress Note PATIENT NAME: Marco Gómez DATE OF SERVICE: September 11, 2025 TIME: 1:51 PM PATIENT IDENTITY VERIFICATION COMPLETED USING TWO (2) IDENTIFIERS: Name and Date of confirmed by patient verbally and Name and Date of [...] PATIENT PRESENTS WITH AN IMPLANTABLE OR ATTACHED COMMERCIAL LENDING VICE PRESIDENT: No RADIOLOGY DEPARTMENT: General X-ray: Exam(s) Completed: Upper Extremity X-Ray(s): Fingers/Thumb, left PERIPHERAL IV DATA: Not applicable SIGNED BY: RT Gilma(R) September 11, 2025 1:51 PMNormalMohansic State HospitalED NOTEon 56-18-7377BB NOTEHNO ID: [id number] Author: SHIMA SAMAYOA RN Service: ? Author Type: Registered Nurse Type: ED Notes Filed: 09/11/2025 15:14 Note Text: Pt stable and ambulatory upon departure. Discharge instructions and details for follow up care given and reviewed. Pt verbalized understanding of medication's prescribed as well as how to follow up to continue their care. PT educated that they should return to the ED if their condition worsens. PT verbalized understanding of the education. [facility]: [id number] Author: JARON CHAVIS RN Service: ? Author Type: Registered Nurse Type: ED Notes Filed: 09/11/2025 13:33 Note Text: Pt to ED for injury of left thumbNormalEuclid HospitalED PROV NOTEon 09-11-2025 ED PROV NOTEHNO ID: [id number] Author: SERAFIN WINTERS DO Service: ? Author Type: Physician Type: ED Provider Notes Filed: 09/11/2025 14:58 Note Text: ED Provider Note Patient Name: Marco Gómez : 2005 SERVICE DATE: 09/11/25 History Patient [...] 09/11/25 1332 09/11/25 1332 122/65 67 36.7 ?C (98 ?F) Oral 18 99 % 81.6 kg (180 [...] injury. 0.25 cm puncture wound on the distal phalanx. He had bleeding controlled. X-ray was obtained and showed no acute process. Finger wrapped and no suture needed. Follow up with PCP for further management. History and Record Review External record(s) reviewed: prior outpatient record. Findings from review of outpatient records: pmh Differential Diagnoses - thumb injury is more likely for the following reason(s): suggested by HANDP - bodily fluid exchange is less likely for the following reason(s): HANDP not suggestive Management I performed an independent interpretation of the following:imaging Imaging: My interpretation is no fracture Disposition The patient was discharged. Counseled patient regarding radiology results and suspected diagnosis. SIGNATURE: DO Rosario Toledo [1] Social History Tobacco Use Smoking status: Not on file Smokeless tobacco: Not on file Substance and Sexual Activity Alcohol use: Not on file Drug use: Not on file Sexual activity: Not on file SERAFIN WINTERS 09/11/[address] [place], [place] [address]XR DIGIT 3V FRONTAL/LAT/OBL LTon 42-16-5718ZK DIGIT 3V FRONTAL/LAT/OBL LT* * *Final Report* * * DATE OF [...] tissue. No obvious focal soft tissue swelling. IMPRESSION: NO ACUTE BONY ABNORMALITY Transcribed Using Voice Recognition Transcribe Date/Time: Sep 11 2025 2:32P Dictated by: GRICELDA JAIN MD This examination was interpreted and the report reviewed and electronically signed by: GRICELDA JAIN MD on Sep 11 2025 2:33PM EST [id number] HospitalAmbulatory Visit Summaryon 07-19-2025 Ambulatory Visit SummaryAmbulatory Visit Summary MARCO GÓMEZ :2005 Visit Date:07/19/2025 Ambulatory Visit Instructions Your Diagnosis Cough Wheezing on expiration Acute bronchitis Your Care Team Attending Physician - Jaylin Underwood Primary Care Physician - Martinez SEAT MENDER, Natacha L This Is Your Medications List Contact prescribing physician if questions or concerns sumatriptan (SUMAtriptan 100 mg Tab) Procedures Performed Meniscal repair, Rotator cuff repair, Tonsillectomy. Discharge Vitals Temperature (Temporal Artery) 36.6 ???C Heart Rate (Peripheral) 77 Respiratory Rate 18 Blood Pressure 124/84 Height 182 cm Height 72 in Weight 82.7 kg Weight 182.322 lb BMI 24.97 Medications What How Much When Instructions Unchanged sumatriptan (SUMAtriptan 100 mg Tab) 1 Tablets By Mouth Once TAKE ONE TABLET AT ONSET OF MIGRAINE AND MAY REPEAT IN 2 HOURS IF NEEDED. MAX 2 TABS/ DAY2 DAYS/ WEEK Contact prescribing physician if questions or concerns Allergies Bee Stings (Rash) Problems Ongoing - Any problem that you are currently receiving treatment for. BMI 26.0-26.9,adult Fatigue Former smoker Insomnia Migraine Neck pain Overweight (BMI 25.0-29.9) Seasonal allergies Wellness examination Patient Survey You may receive a survey via text or e-mail asking about your office visit. Please share your experience with us by completing your survey. We appreciate your feedback and thank you for choosing us for your care. Patient Portal You may access all of your results and other medical record information on our secure patient portal. If you are not signed up for this yet, please contact [employer] at [phone] to get signed up today. Language Information Language assistance services are available as needed. [facility] Medicine Office/Clinic Noteon [id number] Medicine Office/Clinic NoteFaboston hospital for women Medicine Office/Clinic Note Chief Complaint chest congestion and tightness HPI Staff 19 year old male presents with chest congestion, wheezing and tightness. Pt. states he feels like he is breathing through a straw and is unable to sleep. Pt. does have a cough and is bring up phlegm . Pt. was seen a few days ago for a sinus infection. History of Present Illness I have reviewed and verified the staff HPI to be accurate for this encounter. Portions of this record have been created with voice recognition software. Occasional wrong-word or???aidcg-h-aczo??? substitutions may have occurred due to the inherent limitations of voice recognition software. 19-year-old male with history of tonsillectomy, seasonal allergies, migraines and insomnia dents with complaints of difficulty breathing. Patient states he has had a cough and tightness in his chest where it feels like he is breathing through a straw. Has been bringing up some discolored phlegm. Patient denies any fevers or chills. Patient states he just got back from a cruise to the [facility]. Patient denies being on an airplane stating he drove down to a port and had his cruise from there. Requesting an inhaler. Denies any recent smoking or vaping. Review of Systems ROS negative unless otherwise stated in HPI. Physical Exam Vitals & Measurements T: 36.6 ???C(Temporal Artery) HR: 77(Peripheral) RR: 18 BP: 124/84 SpO2: 98% HT: 182 cm HT: 72 in WT: 82.7 kg WT: 182.322 lb BMI: 24.97 General: generally ill appearing but in no acute distress Eyes: Pupils equal, round, and reactive to light. Conjunctivae and sclerae normal, and extraocular movements intact Ears: No deformity or lesion of external ear. Canals and TM appear normal bilaterally. TM???s intact, not inflamed, with normal light reflex. Hearing grossly normal to conversational speech Nose: mild nasal mucosa inflammation and edema Mouth: Mucous membranes moist. Normal oropharynx, injected posterior pharynx without lesions or exudates. Tongue normaluvula midline, tonsils surgically absent Neck: no adenopathy Lungs: Normal respiratory effort but wheezing heard bilaterally in upper lobes posteriorly. No rales or rhonchi. SPO2 98% on room air Cardio: regular rate and rhythm, no murmur Abdomen: not assessed Musculoskeletal: not assessed Extremity: not assessed Neurologic: not assessed Skin: No rashes, ulcerations, or suspicious lesions Mental Status: Alert and oriented x3. Normal mood and affect Assessment/Plan Declines COVID testing. Due to amount of wheezing without history of asthma, will get chest x-ray. x- ray was negative for pneumonia. Duo neb did help clear wheezing. Will prescribe prednisone and albuterol inhaler for at home. Do not use albuterol for about 4 hours. 1. Acute bronchitis (J20.9: Acute bronchitis, unspecified) You were seen and evaluated today in regards to cough and wheezing. You had wheezing on exam today.Discussed with you in regards to treatment for bronchitis with prednisone, steroid 40 mg daily x 5 days take as directed. In addition continue albuterol inhaler, 2 puffs every 4-6 hours as needed forwheezing. Cough, and viral symptoms may last anywhere form 7-14 days, or linger longer. Continue tomonitor. If you develop high spiking fever, shortness of breath ,or chest pain, you should go to the emergency department for reevaluation. You may return if needed. Ordered: predniSONE, 40 mg = 2 tab(s), Oral, Daily, with food or milk, X 5 day(s), # 10 tab(s), Refills(s) 0, Pharmacy: [facility]/pharmacy #[id number], 182, cm, 07/19/25 9:17:00 EDT, Height/Length Dosing, 82.7, kg, 07/19/25 9:17:00 EDT, Weight Dosing Cough (R05.9: Cough, unspecified) Ordered: albuterol-ipratropium, 3 mL, Soln-Inh, NEB, Once, Stop date 07/19/25 9:35:00 EDT, Routine, Start date 07/19/25 9:35:00 EDT predniSONE, 40 mg = 2 tab(s), Oral, Daily, with food or milk, X 5 day(s), # 10 tab(s), Refills(s) 0, Pharmacy: [facility]/pharmacy #[id number], 182, cm, 07/19/25 9:17:00 EDT, Height/Length Dosing, 82.7, kg, 07/19/25 9:17:00 EDT, Weight Dosing XR Chest 2 Views Wheezing on expiration (R06.2: Wheezing) Ordered: albuterol, 2 puff(s), Inhalation, q4hr for wheezing, 8 gm, Refill(s) 0, [facility]/pharmacy #[id number], 182, cm, 07/19/25 9:17:00 EDT, Height/Length Dosing, 82.7, kg, 07/19/25 9:17:00 EDT, Weight Dosing albuterol-ipratropium, 3 mL, Soln-Inh, NEB, Once, Stop date 07/19/25 9:35:00 EDT, Routine, Start date 07/19/25 9:35:00 EDT predniSONE, 40 mg = 2 tab(s), Oral, Daily, with food or milk, X 5 day(s), # 10 tab(s), Refills(s) 0, Pharmacy: [facility]/pharmacy #[id number], 182, cm, 07/19/25 9:17:00 EDT, Height/Length Dosing, 82.7, kg, 07/19/25 9:17:00 EDT, Weight Dosing Follow-up With When Contact Information Natacha Pringle, [facility], MED Additional Instructions: Patient Education Acute Bronchitis, Adult, Svab-yw-Rwsq Problem List/Past Medical History Ongoing BMI 26.0-26.9,adult Fatigue Former smoker Insomnia Migraine Neck (more content not included)...[facility] HospitalComment on above:Result Comment: Electronically Signed By: Jaylin Underwood\.br\Date and Time Signed: 07/19/25 21:55 EDTXR Chest 2 Viewson [id number] Chest 2 Views Exam Date/Time: 07/19/2025 09:39 EDT Reason for Exam: Cough Report IMPRESSION: No acute radiographic abnormality. EXAMINATION: XR Chest 2 Views Clinical History: Cough. Comparison: 10/22/2024. RESULT: No consolidation. No pleural effusion. No pneumothorax. Normal cardiomediastinal silhouette. No acute osseous findings. Ordering Provider: Trini Hernandez FINAL REPORT Dictated: 07/19/2025 9:47 am Lars Porter MD Signed (Electronic Signature): 07/19/2025 9:47 am Signed by: Lars Porter MD Transcribed by: TJ Technologist: [facility] HospitalAmbulatory Visit Summaryon [id number] Visit SummaryAmbulatory Visit Summary MARCO GÓMEZ :2005 Visit Date:07/10/2025 Ambulatory Visit Instructions Your Diagnosis Seasonal allergies Your Care Team Attending Physician - Thu Sullivan Primary Care Physician - Natacha Pringle This Is Your Medications List atogepant (Qulipta 60 mg oral tablet) hydrOXYzine (hydrOXYzine hydrochloride 50 mg oral tablet) sumatriptan (SUMAtriptan 100 mg Tab) trazodone (traZODONE 50 mg Tab) Procedures Performed Meniscal repair, Rotator cuff repair, Tonsillectomy. Discharge Vitals Temperature (Tympanic) 36.6 ???C Heart Rate (Peripheral) 80 Blood Pressure 128/80 Height 182 cm Height 72 in Weight 87.7 kg Weight 193.345 lb BMI 26.48 Medications What How Much When Why Instructions Unchanged atogepant (Qulipta 60 mg oral tablet) Unchanged hydrOXYzine (hydrOXYzine hydrochloride 50 mg oral tablet) See instructions TAKE 1 TABLET BY MOUTH AT BEDTIME Unchanged sumatriptan (SUMAtriptan 100 mg Tab) 1 Tablets By Mouth Once TAKE ONE TABLET AT ONSET OF MIGRAINE AND MAY REPEAT IN 2 HOURS IF NEEDED. MAX 2 TABS/ DAY2 DAYS/ WEEK Unchanged trazodone (traZODONE 50 mg Tab) 1 Tablets By Mouth Once a day (at bedtime) Insomnia Medications and Immunizations Administered Given Kenalog-40, 60 mg, IntraMuscular. For: Seasonal allergies Allergies Bee Stings (Rash) Problems Ongoing - Any problem that you are currently receiving treatment for. BMI 26.0-26.9,adult Fatigue Former smoker Insomnia Migraine Neck pain Overweight (BMI 25.0-29.9) Seasonal allergies Wellness examination Patient Survey You may receive a survey via text or e-mail asking about your office visit. Please share your experience with us by completing your survey. We appreciate your feedback and thank you for choosing us for your care. Patient Portal You may access all of your results and other medical record information on our secure patient portal. If you are not signed up for this yet, please contact [employer] at [phone] to get signed up today. Language Information Language assistance services are available as needed. [facility] Medicine Office/Clinic Noteon [phone] Medicine Office/Clinic NoteFaboston hospital for women Medicine Office/Clinic Note Chief Complaint allergy shot HPI Staff 19 year old male presents for allergy shot History of Present Illness -I have reviewed and discussed the HPI (staff) with the patient today. -Information was verified and is correct. -Additional information provided if needed. 19-year-old male with seasonal allergies. Typically every 6 months he receives a intramuscular shotof Kenalog for his allergies. He chronically struggles with sneezing itchy watery eyes runny nose and ear issues. As a child he had 4 sets of tubes. He reports no fevers or chills no chest pain no shortness of breath today no history of asthma. Denies any new rashes. In February he received a 40 mg Kenalog injection and states that the effects over the last several shots have not been as beneficial.He chronically uses a nasal spray that causes vasoconstriction and occasional Zyrtec or Claritin that does not seem to help very much Review of Systems PHQ Score Initial Depression Screen Score: 0 SCORE Physical Exam Vitals & Measurements T: 36.6 ???C(Tympanic) HR: 80(Peripheral) BP: 128/80 SpO2: 98% HT: 182 cm HT: 72 in WT: 87.7 kg WT: 193.345 lb BMI: 26.48 General: alert, no acute distress, _well appearing, _pleasant young male room 4 ENMT: TMs are clear bilaterally with obvious scarring from previous TM tubes, no evidence of purulence or opacification or injection or erythema, canals are unremarkable, pinna nontender to palpation, tonsils are surgically absent, uvula midline, normal dentition oral mucosa moist, no pharyngeal erythema or exudate Cardiovascular: regular rate and rhythm, normal peripheral perfusion, noedema Respiratory: no distress, Lungs CTA, respirations non labored Extremities: no deformity, no trauma Neurological: oriented x 4, LOC appropriate for age, CN II-XII intact, motor strength equal & normal bilaterally, sensation equal & normal bilaterally, speech normal Integumentary: intact, warm & dry, no rashes, no open sores Assessment/Plan 60 of Kenalog intramuscularly provided to the patient today. Also education on avoiding the use of Afrin on a daily basis due to rebound vasodilation discussed and educated with the patient. He was encouraged to use a daily Flonase or nasal saline rinsing for symptom management, daily Claritin and Zyrtec may be used as well. Patient instructed to follow-up with PCP in 6 months. He declines any need for further allergy testing or referral. 1. Seasonal allergies (J30.2: Other seasonal allergic rhinitis) Ordered: triamcinolone, 60 mg = 1.5 mL, Injection, IntraMuscular, Once, Stop date 07/10/25 9:24:00 EDT, Routine, Start date 07/10/25 9:24:00 EDT, 07/10/25 9:24:00 EDT Portions of this record may have been created with voice recognition artificial intelligence software, specifically [employer], [employer] and or [employer]. Substitutions may have occurred due to the inherent limitations of voice recognition and artificial intelligence software. Total time spent preparing the chart, conducting of the encounter with the patient and family and time spent documenting, reviewing, and ordering tests was 25 minutes. Follow-up No qualifying data available Problem List/Past Medical History Ongoing BMI 26.0-26.9,adult Fatigue Former smoker Insomnia Migraine Neck pain Overweight (BMI 25.0-29.9) Seasonal allergies Wellness examination Historical No qualifying data Procedure/Surgical History Meniscal repair, Rotator cuff repair, Tonsillectomy. Medications hydrOXYzine hydrochloride 50 mg oral tablet, See Instructions Kenalog-40, 60 mg= 1.5 mL, IntraMuscular, Once Qulipta 60 mg oral tablet SUMAtriptan 100 mg Tab, 100 mg= 1 tab(s), Oral, Once, 1 refills traZODONE 50 mg Tab, 50 mg= 1 tab(s), Oral, Once a day (at bedtime), 1 refills Allergies Bee Stings (Rash) Social History Alcohol - Denies Alcohol Use, 01/20/2023 Never., 09/01/2024 Substance Abuse - Denies Substance Abuse, 01/20/2023 Never., 09/01/2024 Tobacco Former smoker, quit more than 30 days ago, quit March 2024 Tobacco Use:. Never Smokeless Tobacco Use:. Household tobacco concerns: No. Yes, 07/10/2025 Family History Diabetes mellitus type 2: Father. Hyperlipidemia: Father. Immunizations Vaccine Date Status Comments hepatitis B adult vaccine 04/07/2025 Recorded influenza virus vaccine, inactivated 08/07/2024 Recorded influenza virus vaccine, inactivated 08/12/2023 Recorded influenza virus vaccine, inactivated 09/09/2022 Recorded SARSCoV2 mRNA(qarlkecwh-oovh-lidqjg) vac 06/06/2022 Recorded 2023-01-20: TPVALL SARSCoV2 mRNA(pumtzvsew-bgqg-sjibjn) vac 05/16/2022 Recorded 2023-01-20: TPVALL meningococcal group B vaccine 09/15/2021 Recorded meningococcal group B vaccine 06/27/2021 Recorded 2024-06-10: DEYANIRA ARCEO RN meningococcal conjugate vaccine 06/27/2021 Recorded 2024-06-10: DEYANIRA ARCEO RN influenza virus vaccine, inactivated 10/12/2019 Recor (more content not included)...[facility] HospitalComment on above:Result Comment: Electronically Signed By: Thu Sullivan\matt\Date and Time Signed: 07/10/25 09:34 EDTProvider Letteron [phone] LetterProvider Letter April 19, 2025 MARCO GÓMEZ [address] [place] [phone] : 2005 Dear Marco, We have been trying to reach you with no success. It is important that you return our call regarding your lab work upon receiving this letter. Also, at the time of your call, please provide us with your current information. Thank you for your prompt attention to this matter. Sincerely, [place] [address] [place] [address] IteyqtScisvuCincinnati VA Medical CenterCB w/ Auto Diffon 04-15-2025 Basophil Absolute0.0 E9/LNormal0.0-0.2FCleveland Clinic Children[facility] Hospital for RehabilitationComment on above:Performed By: #### [id number] #### [facility] [address], [place] [address]Wttadghwf/100 WBC (Bld)0.7 %Normal0.0-2.0[facility] HospitalComment on above:Performed By: #### [id number] #### [facility] [address], [place] [address]Qnx Absolute0.2 E9/LNormal0.0-0.5FC[facility] Rehabilitation Comment on above:Performed By: #### [id number] #### [facility] [address], [place] [address]Fuvielptuwj/100 WBC (Bld)4.7 %Normal0.0-8.0Prov[facility] HospitalComment on above:Performed By: #### [id number] #### [facility] [address] [place] [address]Vgjicrhimtp distribution width (RBC) [Ratio]12.7 %Normal 10.9-14.2FCleveland Clinic Children's Hospital for RehabilitationComment on above:Performed By: #### [id number] #### [facility] [address] [place] [address]Lxnjnomcpo (Bld) [Volume fraction]46.0 %Kehnfy74.7-49.0Prov[facility] HospitalComment on above:Performed By: #### [id number] #### [facility] [address] [place] [address]Hiwpbikgsc (Bld) [Mass/Vol]15.7 g/mZPsakij84.5-17.5FCleveland Clinic Children's Hospital for RehabilitationComment on above:Performed By: #### [id number] #### [facility] [address] [place] [address]Jtpel Absolute1.6 E9/LNormal1.0-4.0[facility] Comment on above:Performed By: #### [id number] #### [facility] [address] [place] [address]Fgudlpfpcsf/100 WBC (Bld)31.4 %Ahicog27.0-50.0Providence HospitalComment on above:Performed By: #### [id number] #### [facility] [address] [place] [address]QZD (RBC) [Entitic mass]30.5 bxJhmzet13.0-34.0Prov[facility] HospitalComment on above:Performed By: #### [id number] #### [facility] [address] [place] [address]NMBK (RBC) [Mass/Vol]34.0 g/yAWpeghm25.4-36.0Prov[facility] HospitalComment on above:Performed By: #### [id number] #### [facility] [address], [place] [address]WXZ (RBC) [Entitic vol]89.5 vESmtqlv83.0-100.0Prov[facility] HospitalComment on above:Performed By: #### [id number] #### [facility] [address] [place] [address]Nuhq Absolute0.4 E9/LNormal0.2-1.0[facility] Comment on above:Performed By: #### [id number] #### [facility] [address], [place] [address]Ypuvamgze/100 WBC (Bld)8.8 %Normal4.0-14.0Prov[facility] HospitalComment on above:Performed By: #### [id number] #### [facility] [address] [place] [address]Kkxsgd Absolute2.7 E9/LNormal2.0-7.5FC[facility] Comment on above:Performed By: #### [id number] #### [facility] [address] [place] [address]Fqqdzl Auto54.4 %Ptolau34.0-75.0[facility] Comment on above:Performed By: #### [id number] #### [facility] [address] [place] [address]Dlgaslzp242.0 E9/DBwdxga502.0-500.0[facility] Comment on above:Performed By: #### [id number] #### [facility] [address], [place] [address]Rcdicnhk mean volume (Bld) [Entitic vol]8.6 fLNormal6.4-10.8 [facility] HospitalComment on above:Performed By: #### [id number] #### [facility] [address], [place] [address]SZQ0.1 E12/LNormal4.3-5.9Prov[facility] HospitalComment on above:Performed By: #### [id number] #### [facility] [address], [place] [address]BVE2.0 E9/LNormal4.0-11.0[facility]rieger InstituteComment on above:Result Comment: Peripheral smear review performed.Performed By: #### [id number] #### [facility] [address], [place] [address]ZLQNZVQNVXqkexsk By: SYSTEM SYSTEM on 23-60-0336Kqwdyfo [Mass/Vol]4.8 g/dLNormal3.3 - 5.0 gm/dLRemisol ChemAlbumin/Globulin [Mass ratio] 2.0 {ratio}Normal1.1 - 2.2Remisol ChemALP [Catalytic activity/Vol]55 [iU]/d Uuepar93 - 98 Int._Unit/LRemisol ChemALT No additional P-5'-P [Catalytic activity/Vol]13 [iU]/dNormal6 - 46 Int._Unit/LRemisol ChemAnion gap [Moles/Vol] 10 mmol/LNormal6 - 16 mEq/LRemisol ChemAST [Catalytic activity/Vol]15 [iU]/d Normal5 - 43 Int._Unit/LRemisol ChemBilirubin [Mass/Vol]0.7 mg/dLNormal0.0 - 1.1 mg/dLRemisol ChemCalcium [Mass/Vol]9.6 mg/dLNormal8.9 - 11.1 mg/dLRemisol Chem Chloride [Moles/Vol]102 mmol/BCrszan473 - 111 mmol/LRemisol ChemCO2 [Moles/Vol] 30 mmol/SSmopax79 - 31 mmol/LRemisol ChemCreatinine [Mass/Vol]1.0 mg/dLNormal0.5 - 1.3 mg/dLRemisol ChemGFR/1.73 sq M.predicted MDRD (S/P/Bld) [Vol rate/Area] 109 mL/min/1.73 j4Shlgod>=59mL/min/1.73 y9Zaremon ChemGlobulin (S) [Mass/Vol]2.4 g/dLNormal1.4 - 4.0 gm/dLRemisol ChemGlucose [Mass/Vol]84 mg/rKKzpjic21 - 199 mg/dLRemisol ChemPotassium [Moles/Vol]4.1 mmol/LNormal3.5 - 5.3 mmol/LRemisol ChemProtein [Mass/Vol]7.2 g/dLNormal6.0 - 7.8 gm/dLRemisol ChemSodium [Moles/Vol]138 mmol/NBpftni735 - 145 mmol/LRemisol ChemTSH Qn2.98 m[IU]/LNormal 0.34 - 5.60 mcIU/mLRemisol ChemUrea nitrogen [Mass/Vol]14 mg/dLNormal5 - 21 mg/dLRemisol ChemUrea nitrogen/Creatinine [Mass ratio]14 mg/ppGmsrpf53 - 20 Remisol ChemCMPon 42-07-7611Dbioasg [Mass/Vol]4.8 g/dLNormal3.3-5.0Prov[facility] HospitalComment on above:Performed By: #### [id number] #### [facility] [address], [place] [address]Lsdunhh/Globulin [Mass ratio]2.0 {ratio}Normal1.1-2.2FC[facility] Hospital for RehabilitationComment on above:Performed By: #### [id number] #### [facility] [address], [place] [address]Oev Phos55 Int._Unit/STphndb43-51TfehyxProvidence Hospital Comment on above:Performed By: #### [id number] #### [facility] [address], [place] [address]SZF53 Int._Unit/LNormal6-46Providence HospitalComment on above:Performed By: #### [id number] #### [facility] [address], [place] [address]Ebgtx gap [Moles/Vol]10 mmol/LNormal6-16Providence HospitalComment on above:Performed By: #### [id number] #### [facility] [address], [place] [address]ATI89 Int._Unit/LNormal5-43Prov[facility] HospitalComment on above:Performed By: #### [id number] #### [facility] [address], [place] [address]Swmx Total0.7 mg/dLNormal0.0-1.1FC[facility] Comment on above:Performed By: #### [id number] #### [facility] [address], [place] [address]ZJM/Creat Ratio14 No HrdgdUrvbjw66-23CsiggfProvidence HospitalComment on above:Performed By: #### [id number] #### [facility] [address], [place] [address]Wkuegto [Mass/Vol]9.6 mg/dLNormal8.9-11.1FC[facility] Children[facility] Hospital for RehabilitationComment on above:Performed By: #### [id number] #### [facility] [address], [place] [address]Hqmojkmy [Moles/Vol]102 mmol/PThuehi366-838OwpxpeProvidence HospitalComment on above:Performed By: #### [id number] #### [facility] [address], [place] [address]OB3 [Moles/Vol]30 mmol/ZIjblby47-52RjaiouProvidence Hospital Comment on above:Performed By: #### [id number] #### [facility] [address], [place] [address]Mpxrupjvhf [Mass/Vol]1.0 mg/dLNormal0.5-1.3FC[facility] Children[facility] Hospital for RehabilitationComment on above:Performed By: #### [id number] #### [facility] [address], [place] [address]Iyfqklrh (S) [Mass/Vol]2.4 g/dLNormal1.4-4.0Providence HospitalComment on above:Performed By: #### [id number] #### [facility] [address], [place] [address]Eszddma [Mass/Vol]84 mg/yRBzkuhj69-676QuvtpjProvidence HospitalComment on above:Performed By: #### [id number] #### [facility] [address], [place] [address]Wrklifaec [Moles/Vol]4.1 mmol/LNormal3.5-5.3FC[facility] Children[facility] Hospital for RehabilitationComment on above:Performed By: #### [id number] #### [facility] [address], [place] [address]Qccsaci [Mass/Vol]7.2 g/dLNormal6.0-7.8Providence HospitalComment on above:Performed By: #### [id number] #### [facility] [address], [place] [address]Irgxhz [Moles/Vol]138 mmol/ZClssdd403-163JciglrProvidence HospitalComment on above:Performed By: #### [id number] #### [facility] [address], [place] [address]Hgpc nitrogen [Mass/Vol]14 mg/dLNormal5-21Providence HospitalComment on above:Performed By: #### [id number] #### [facility] [address], [place] [address]WNGGZTZIALQkjzsfm By: SYSTEM SYSTEM on 30-58-0163Dyznbvich/100 WBC (Bld)0.7 %Normal0.0 - 2.0 %Remisol HemeBasophils/Leukocytes Auto (Bld) [Pure # fraction]0.0 E9/LNormal0.0 - 0.2 E9/LRemisol HemeEosinophils (Bld) [#/Vol]0.2 E9/LNormal0.0 - 0.5 E9/LRemisol HemeEosinophils/100 WBC (Bld)4.7 %Normal0.0 - 8.0 %Remisol HemeErythrocyte distribution width (RBC) [Ratio]12.7 %Frzaov72.9 - 14.2 %Remisol HemeHematocrit (Bld) [Volume fraction]46.0 %Wvieuu24.7 - 49.0 % Remisol HemeHemoglobin (Bld) [Mass/Vol]15.7 g/cPOnlmtl37.5 - 17.5 gm/dLRemisol HemeLymphocytes (Bld) [#/Vol]1.6 E9/LNormal1.0 - 4.0 E9/LRemisol Heme Lymphocytes/100 WBC (Bld)31.4 %Hcbcsh26.0 - 50.0 %Remisol HemeMCH (RBC) [Entitic mass]30.5 efWkrzbw11.0 - 34.0 pgRemisol HemeMCHC (RBC) [Mass/Vol]34.0 g/dL Svtvuy30.4 - 36.0 gm/dLRemisol HemeMCV (RBC) [Entitic vol]89.5 nGPaisbe71.0 - 100.0 fLRemisol HemeMonocytes (Bld) [#/Vol]0.4 E9/LNormal0.2 - 1.0 E9/LRemisol HemeMonocytes/100 WBC (Bld)8.8 %Normal4.0 - 14.0 %Remisol HemeNeutrophils (Bld) [#/Vol]2.7 E9/LNormal2.0 - 7.5 E9/LRemisol HemeNeutrophils/100 WBC (Bld)54.4 % Rtcixb72.0 - 75.0 %Remisol HemePlatelet mean volume (Bld) [Entitic vol]8.6 fL Normal6.4 - 10.8 fLRemisol HemePlatelets (Bld) [#/Vol]244.0 E9/IPayzaw986.0 - 500.0 E9/LRemisol HemeRBC (Bld) [#/Vol]5.1 E12/LNormal4.3 - 5.9 E12/LRemisol HemeWBC corrected for nucl RBC Auto (Bld) [#/Vol]5.0 E9/LNormal4.0 - 11.0 E9/L Remisol HemeComment on above:Result Comment: Peripheral smear review performed. TSHon 44-71-6296ZLE Qn2.98 m[IU]/LNormal0.34-5.60[facility] Comment on above:Performed By: #### [id number] #### [facility] [address], [place] [address]aLRAdf 28-85-1040xQGQ019 mL/min/1.73 y2Fbynmo>=59Providence HospitalComment on above:Performed By: #### [id number] #### [facility] [address] [place] [address]Fuswhihx Letteron [phone] LetterProvider Letter April 08, 2025 MARCO ÓGMEZ [address] [facility] [place] [address] : 2005 Dear Marco, We have been trying to reach you with no success. It is important that you return our call upon receiving this letter. Also, at the time of your call, please provide us with your current information. Thank you for your prompt attention to this matter. Sincerely, Family Medicine [address] [address] NyzbziXaltyfCincinnati [facility] CenterFab[facility] Medicine Office/Clinic Noteon [id number] Medicine Office/Clinic NoteFami Medicine Office/Clinic Note Chief Complaint Acute Visit HPI Staff Pt presents today for acute visit. DAPHNEY 03/02/25 seen by Layla due to insomnia. Initiated trazodone 50mg. Pt here today to discuss medication. Does not feel like its working. Does help him get to sleep, but not staying asleep. Did try increasing to 200mg (states he was instructed by Layla that it was OK). Still not helping stay asleep. History of Present Illness pt presents today for follow up on insomnia Review of Systems PHQ Score Initial Depression Screen Score: 0 SCORE Physical Exam Vitals & Measurements T: 36.8 ???C(Tympanic) HR: 68(Peripheral) RR: 18 BP: 136/84 SpO2: 98% HT: 72 in HT: 182 cm WT: 87.6 kg WT: 193.125 lb BMI: 26.45 General: alert, no acute distress ENMT: oral mucosa moist, no pharyngeal erythema or exudate Cardiovascular: regular rate and rhythm, normal peripheral perfusion Respiratory: Lungs CTA, respirations non labored Extremities: no deformity, no trauma Neurological: oriented x 4, LOC appropriate for age, CN II-XII intact, motor strength equal & normal bilaterally, speech normal Assessment/Plan 1. Insomnia (G47.00: Insomnia, unspecified) pt presents today for continued insomnia. pt was prescribed trazodone and he is still not able to sleep. pt tried Seroquel as well in the past he said that made him too groggy. he has done some research and would like to try hydroxyzine. RTC 3 months Ordered: hydrOXYzine, 50 mg = 1 tab(s), Oral, Bedtime, # 30 tab(s), Refills(s) 2, Pharmacy: [facility]/pharmacy #[id number], 182, cm, 03/17/25 15:09:00 EDT, Height/Length Dosing, 87.6, kg, 03/17/25 15:09:00 EDT, Weight Dosing 2. BMI 26.0-26.9,adult (Z68.26: Body mass index [BMI] 26.0-26.9, adult) BMI education Ordered: hydrOXYzine, 50 mg = 1 tab(s), Oral, Bedtime, # 30 tab(s), Refills(s) 2, Pharmacy: [facility]/pharmacy #[id number], 182, cm, 03/17/25 15:09:00 EDT, Height/Length Dosing, 87.6, kg, 03/17/25 15:09:00 EDT, Weight Dosing 3. Overweight (BMI 25.0-29.9) (E66.3: Overweight) see above Ordered: hydrOXYzine, 50 mg = 1 tab(s), Oral, Bedtime, # 30 tab(s), Refills(s) 2, Pharmacy: [facility]/pharmacy #[id number], 182, cm, 03/17/25 15:09:00 EDT, Height/Length Dosing, 87.6, kg, 03/17/25 15:09:00 EDT, Weight Dosing 4. Former smoker (Z87.891: Personal history of nicotine dependence) continue not smoking Ordered: hydrOXYzine, 50 mg = 1 tab(s), Oral, Bedtime, # 30 tab(s), Refills(s) 2, Pharmacy: [facility]/pharmacy #[id number], 182, cm, 03/17/25 15:09:00 EDT, Height/Length Dosing, 87.6, kg, 03/17/25 15:09:00 EDT, Weight Dosing Follow-up No qualifying data available Problem List/Past Medical History Ongoing BMI 26.0-26.9,adult Fatigue Former smoker Insomnia Migraine Neck pain Overweight (BMI 25.0-29.9) Seasonal allergies Wellness examination Historical No qualifying data Procedure/Surgical History Meniscal repair, Rotator cuff repair, Tonsillectomy. Medications hydrOXYzine hydrochloride 50 mg oral tablet, 50 mg= 1 tab(s), Oral, Bedtime, 2 refills SUMAtriptan 100 mg Tab, 100 mg= 1 tab(s), Oral, Once, 1 refills traZODONE 50 mg Tab, 50 mg= 1 tab(s), Oral, Once a day (at bedtime), 1 refills Allergies Bee Stings (Rash) Social History Alcohol - Denies Alcohol Use, 01/20/2023 Never., 09/01/2024 Substance Abuse - Denies Substance Abuse, 01/20/2023 Never., 09/01/2024 Tobacco Former smoker, quit more than 30 days ago, quit March 2024 Tobacco Use:. Never Smokeless Tobacco Use:. Household tobacco concerns: No. Yes, 03/17/2025 Family History Diabetes mellitus type 2: Father. Hyperlipidemia: Father. Immunizations Vaccine Date Status Comments influenza virus vaccine, inactivated 08/07/2024 Recorded influenza virus vaccine, inactivated 08/12/2023 Recorded influenza virus vaccine, inactivated 09/09/2022 Recorded SARSCoV2 mRNA(blvgzxjll-dxha-zupbtt) vac 06/06/2022 Recorded 2023-01-20: TPVALL SARSCoV2 mRNA(jsmzexxcw-soqy-cnmmyh) vac 05/16/2022 Recorded 2023-01-20: TPVALL meningococcal group [...] 06/02/2009 Recorded DTaP, unspecified formulation 06/02/2009 Recorded influen (more content not included)...[facility] HospitalComment on above:Result Comment: Electronically Signed By: Natacha Pringle\.br\Date and Time Signed: 03/17/25 15:37 EDTAmbulatory Visit Summaryon 03-02-2025 Ambulatory Visit SummaryAmbulatory Visit Summary MARCO GÓMEZ :2005 Visit Date:03/02/2025 Ambulatory Visit Instructions Your Diagnosis Insomnia Former smoker BMI 26.0-26.9,adult Overweight (BMI 25.0-29.9) Your Care Team Attending Physician - LAYLA ARTHUR CNP Primary Care Physician - Natacha Pringle This Is Your Medications List trazodone (traZODONE 50 mg Tab) Contact prescribing physician if questions or concerns sumatriptan (SUMAtriptan 100 mg Tab) Procedures Performed Meniscal repair, Rotator cuff repair, Tonsillectomy. Discharge Vitals Temperature (Oral) 36.5 ???C Heart Rate (Peripheral) 66 Respiratory Rate 20 Blood Pressure 116/80 Height 182.0 cm Height 72 in Weight 87.2 kg Weight 192.243 lb BMI 26.33 Medications What How Much When Why Instructions New trazodone (traZODONE 50 mg Tab) 1 Tablets By Mouth Once a day (at bedtime) Insomnia Refills: 1 Pickup at [facility]/pharmacy #[id number] Unchanged sumatriptan (SUMAtriptan 100 mg Tab) 1 Tablets By Mouth Once TAKE ONE TABLET AT ONSET OF MIGRAINE AND MAY REPEAT IN 2 HOURS IF NEEDED. MAX 2 TABS/ DAY2 DAYS/ WEEK Contact prescribing physician if questions or concerns Pharmacy Information [facility]/pharmacy #[id number]: [address] [place], [place] [phone] Allergies Bee Stings (Rash) Problems Ongoing - Any problem that you are currently receiving treatment for. BMI 27.0-27.9,adult Fatigue Migraine Neck pain Seasonal allergies Wellness examination Patient Survey You may receive a survey via text or e-mail asking about your office visit. Please share your experience with us by completing your survey. We appreciate your feedback and thank you for choosing us for your care. [employer] Insomnia Insomnia is a sleep disorder that makes it difficult to fall asleep or stay asleep. Insomnia can cause fatigue, low energy, difficulty concentrating, mood swings, and poor performance at work or school. There are three different ways to classify insomnia: ??? Difficulty falling asleep. ??? Difficulty staying asleep. ??? Waking up too early in the morning. Any type of insomnia can be long-term (chronic) or short-term (acute). Both are common. Short-term insomnia usually lasts for 3 months or less. Chronic insomnia occurs at least three times a week forlonger than 3 months. What are the causes? Insomnia may be caused by another condition, situation, or substance, such as: ??? Having certain mental health conditions, such as anxiety and depression. ??? Using caffeine, alcohol, tobacco, or drugs. ??? Having gastrointestinal conditions, such as gastroesophageal reflux disease (GERD). ??? Having certain medical conditions. These include: ? Asthma. ? Alzheimer's disease. ? Stroke. ? Chronic pain. ? An overactive thyroid gland (hyperthyroidism). ??? Other sleep disorders, such as restless legs syndrome and sleep apnea. ??? Menopause. Sometimes, the cause of insomnia may not be known. What increases the risk? Risk factors for insomnia include: ??? Gender. Females are affected more often than males. ??? Age. Insomnia is more common as people get older. ??? Stress and certain medical and mental health conditions. ??? Lack of exercise. ??? Having an irregular work schedule. This may include working night shifts and traveling between different time zones. What are the signs or symptoms? If you have insomnia, the main symptom is having trouble falling asleep or having trouble staying asleep. This may lead to other symptoms, such as: ??? Feeling tired or having low energy. ??? Feeling nervous about going to sleep. ??? Not feeling rested in the morning. ??? Having trouble concentrating. ??? Feeling irritable, anxious, or depressed. How is this diagnosed? This condition may be diagnosed based on: ??? Your symptoms and medical history. Your health care provider may ask about: ? Your sleep habits. ? Any medical conditions you have. ? Your mental health. ??? A physical exam. How is this treated? Treatment for insomnia depends on the cause. Treatment may focus on treating an underlying condition that is causing the insomnia. Treatment may also include: ??? Medicines to help you sleep. ??? Counseling or therapy. ??? Lifestyle adjustments to help you sleep better. Follow these instructions at home: Eating and drinking ??? Limit or avoid alcohol, caffeinated beverages, and products that contain nicotine and tobacco, especially close to bedtime. These can disrupt your sleep. ??? Do not eat a large meal or eat spicy foods right before bedtime. This can lead to digestive discomfort that can make it hard for you to sleep. Sleep habits ??? Keep a sleep diary to help you and your health care provider figure out what could be causing your insomnia. Writ (more content not included)...[facility] Medicine Office/Clinic Noteon [id number] Medicine Office/Clinic NoteFami Medicine Office/Clinic Note Chief Complaint Difficulty initiating and maintaining sleep over the past month HPI Staff Marco is a 19 year old male presenting with wanting to discuss insomnia About 1-2 months this has been going on he can not fall asleep or stay asleep he is waking up every45 minutes very restless he has tried magnesium. [place] He has tried his Dad's Seroquel it helped him fall asleep but not staying asleep I have reviewed and verified the staff HPI to be accurate for this encounter. History of Present Illness 19 year old patient of EDGARDO Ojeda presents today for evaluation of insomnia.The insomnia onset was about one to two months prior, characterized by delayed sleep onset, frequent awakenings every 45minutes, and disturbed overall sleep quantity. Various pharmacological and non-pharmacological interventions attempted have not significantly improved symptoms. He states past trials with melatonin, magnesium, ashwagandha, and low-dose Seroquel, noting adverse effects such as increased daytime drowsiness. Mirtazapine for sleep was inefficient for this patient. Other associated lifestyle modifications, like the normalization of work schedule shifts to day shifts, were made to manage symptoms. Review of Systems PHQ Score Initial Depression Screen Score: 0 SCORE Constitutional: no fever, no chills, no sweats, no weakness Skin: no Jaundice, no rash, no lesions, nopetechiae ENMT: no ear pain, no sore throat, no congestion, no hoarseness Respiratory: no shortness of breath, no cough, no orthopnea, no wheezing Cardiovascular: no chest pain, no palpitations, no edema Gastrointestinal: no nausea, no vomiting, no diarrhea, no GI bleeding Genitourinary: no dysuria, no hematuria, no discharge, no pain Musculoskeletal: no back pain, no trauma Neurologic: no headache, no dizziness, no numbness, no weakness Psychiatric: no sleeping problems, no irritability, no mood swings/depression. Heme/Lymph: no bleeding tendency, no bruising tendency, no petechiae, no swollen nodes Allergy/Immunologic: no seasonal allergies, no food allergies, no recurrent infections, no impairedimmunity Additional ROS info: Except as noted in the above Review of Systems and in the History of Present Illness all other systems have been reviewed and are negative or noncontributory. - Neurological: Reports insomnia with difficulty in sleep initiation and maintenance. Reports chronic migraines; denies any recent change in sleep environment or schedule, caffeine, alcohol, or recreational drug use. - Musculoskeletal: Denies any notable factors affecting insomnia besides previous attempts at medications and lifestyle changes. Physical Exam Vitals & Measurements T: 36.5 ???C(Oral) HR: 66(Peripheral) RR: 20 BP: 116/80 SpO2: 99% HT: 182.0 cm HT: 72 in WT: 87.2 kg WT: 192.243 lb BMI: 26.33 General: alert, no acute distress Cardiovascular: regular rate and rhythm, normal peripheral perfusion Respiratory: Lungs CTA, respirations non labored Extremities: no deformity, no trauma Neurological: oriented x 4, LOC appropriate for age speech normal Assessment/Plan 1. Insomnia (G47.00: Insomnia, unspecified) - Initiated Trazodone 50 mg. Advised lifestyle changes to improve sleep hygiene, considering follow-up of response with primary care provider. - f/u in 4 weeks with pcp to determine efficacy Ordered: trazodone, 50 mg = 1 tab(s), Oral, Once a day (at bedtime), # 30 tab(s), Refills(s) 1, Pharmacy: [facility]/pharmacy #[id number], 182, cm, 03/02/25 14:53:00 EDT, Height/Length Dosing, 87.2, kg, 03/02/25 14:53:00 EDT, Weight Dosing 2. Former smoker (Z87.891: Personal history of nicotine dependence) - Emphasized the critical nature of maintaining cessation to enhance general wellness. 3. BMI 26.0-26.9,adult (Z68.26: Body mass index [BMI] 26.0-26.9, adult) - Recommended continued weight management efforts to mitigate impact on sleep and migraine incidents. 4. Overweight (BMI 25.0-29.9) (E66.3: Overweight) - Recommended continued weight management efforts to mitigate impact on sleep and migraine incidents. Chronic Migraines - Advised returning to beneficial amitriptyline therapy under primary care provider's monitoring. Follow-up No qualifying data available Patient Education Insomnia Problem List/Past Medical History Ongoing BMI 27.0-27.9,adult Fatigue Migraine Neck pain Seasonal allergies Wellness examination Historical No qualifying data Procedure/Surgical History Meniscal repair, Rotator cuff repair, Tonsillectomy. Medications SUMAtriptan 100 mg Tab, 100 mg= 1 tab(s), Oral, Once, 1 refills traZODONE 50 mg Tab, 50 mg= 1 tab(s), Oral, Once a day (at bedtime), 1 refills Allergies Bee Stings (Rash) Social History Alcohol - Denies Alcohol Use, 01/20/2023 Never., 09/01/2024 Substance Abuse - Denies Substance Abuse, 01/20/2023 Never., 09/01/2024 Tobacco Former smoker, quit more than 30 days ago (more content not included)...[facility]Comment [facility] above:Result Comment: Electronically Signed By: LAYLA ARTHUR CNP\Date and Time Signed: 03/02/25 15:13 EDT Ambulatory Visit Summaryon [id number] Visit SummaryAmbulatory Visit Summary MARCO GÓMEZ :2005 Visit Date:02/11/2025 Ambulatory Visit Instructions Your Diagnosis Neck pain Your Care Team Attending Physician - Natacha Pringle Primary Care Physician - Natacha Pringle This Is Your Medications List sumatriptan (SUMAtriptan 100 mg Tab) Procedures Performed Meniscal repair, Rotator cuff repair, Tonsillectomy. Discharge Vitals Heart Rate (Peripheral) 60 Respiratory Rate 16 Blood Pressure 138/84 Height 182.0 cm Height 72 in Weight 83.90 kg Weight 184.968 lb BMI 25.33 Medications What When Instructions Unchanged sumatriptan (SUMAtriptan 100 mg Tab) TAKE ONE TABLET AT ONSET OF MIGRAINE AND MAY REPEAT IN 2 HOURS IF NEEDED. MAX 2 TABS/ DAY2 DAYS/ WEEK Allergies Bee Stings (Rash) Problems Ongoing - Any problem that you are currently receiving treatment for. BMI 27.0-27.9,adult Fatigue Neck pain Seasonal allergies Wellness examination Patient Survey You may receive a survey via text or e-mail asking about your office visit. Please share your experience with us by completing your survey. We appreciate your feedback and thank you for choosing us for your care. [facility] Medicine Office/Clinic Noteon [phone] Medicine Office/Clinic NoteCharles [facility] Medicine Office/Clinic Note HPI Staff Marco is a 19 year old male presenting for year physical Pt would referral to Massage Therapist for neck pain ONset; over 2 years Pt has had MRI of neck and did PT twice. Pt states his neck is full of knots has been seeing massage therapist deep massage and that is the only thing that helps. Pt feels it is getting worse. Has been waking up daily with a headache has been seen by neurologist. Pt would like referral to [facility] in [place]. History of Present Illness pt c/o neck pain with daily tension headaches Review of Systems PHQ Score Initial Depression Screen Score: 0 SCORE Physical Exam Vitals & Measurements HR: 60(Peripheral) RR: 16 BP: 138/84 HT: 72 in HT: 182.0 cm WT: 83.90 kg WT: 184.968 lb BMI: 25.33 General: alert, no acute distress ENMT: oral mucosa moist, no pharyngeal erythema or exudate Cardiovascular: regular rate and rhythm, normal peripheral perfusion Respiratory: Lungs CTA, respirations non labored Extremities: no deformity, no trauma Neurological: oriented x 4, LOC appropriate for age, CN II-XII intact, motor strength equal & normal bilaterally, speech normal Assessment/Plan 1. Neck pain (M54.2: Cervicalgia) pt requesting referral to [facility] in [place]. will send order. refill on sumatriptan also sent. 2. Migraine (G43.909: Migraine, unspecified, not intractable, without status migrainosus) pt continues having migraines. has been to neurology and they have put him on multiple meds. with no improvement 3. BMI 24.0-24.9, adult (Z68.24: Body mass index [BMI] 24.0-24.9, adult) BMI education given 4. Former smoker (Z87.891: Personal history of nicotine dependence) continue not smoking Orders: sumatriptan, 100 mg = 1 tab(s), Oral, Once, TAKE ONE TABLET AT ONSET OF MIGRAINE AND MAY REPEAT IN 2 HOURS IF NEEDED. MAX 2 TABS/DAY2 DAYS/WEEK, # 9 tab(s), Refills(s) 1, Pharmacy: [facility]/pharmacy #[id number], 182, cm, 02/11/25 10:13:00 EDT, Height/Length Dosing, 83.9, kg,... Follow-up No qualifying data available Problem List/Past Medical History Ongoing BMI 27.0-27.9,adult Fatigue Migraine Neck pain Seasonal allergies Wellness examination Historical No qualifying data Procedure/Surgical History Meniscal repair, Rotator cuff repair, Tonsillectomy. Medications SUMAtriptan 100 mg Tab, 100 mg= 1 tab(s), Oral, Once, 1 refills Allergies Bee Stings (Rash) Social History Alcohol - Denies Alcohol Use, 01/20/2023 Never., 09/01/2024 Substance Abuse - Denies Substance Abuse, 01/20/2023 Never., 09/01/2024 Tobacco Never (less than 100 in lifetime) Tobacco Use:. Former vaping or e-cigarette use Smokeless Tobacco Use:. Household tobacco concerns: No., 10/22/2024 Former smoker, quit more than 30 days ago, quit March 2024 Tobacco Use:., 09/01/2024 Family History Diabetes mellitus type 2: Father. Hyperlipidemia: Father. Immunizations Vaccine Date Status Comments influenza virus vaccine, inactivated 08/07/2024 Recorded influenza virus vaccine, inactivated 08/12/2023 Recorded influenza virus vaccine, inactivated 09/09/2022 Recorded SARSCoV2 mRNA(epbtbsjyl-fjhv-kopqet) vac 06/06/2022 Recorded 2023-01-20: TPVALL SARSCoV2 mRNA(xmnigklaw-wfry-gbfbcq) vac 05/16/2022 Recorded 2023-01-20: TPVALL meningococcal group [...] 08/04/2004 Recorded measles/mumps/rubella virus vaccine 08/04/2004 Recorded diphth/hepB/pertussis,acel/polio/tetanus 03/13/2004 Recorded poliovirus vaccine, inactivated 2003 Recorded DTaP, unspecified formulation 2003 Recorded diphth/hepB/pertussis,acel/polio/tetanus 2003 Recorded hepatitis B pediatric vaccine 2003 RecordedNormalFisher Fei Medical CenterComment on above:Result Comment: Electronically Signed By: Natacha Pringle\.br\Date and Time Signed: 02/11/25 10:37 EDTAmbulatory Visit Summaryon [id number] Visit SummaryAmbulatory Visit Summary MARCO GÓMEZ :2005 Visit Date:01/16/2025 Ambulatory Visit Instructions Your Diagnosis Skin rash, Skin rash Your Care Team Attending Physician - Rashard Freeman PA-C Primary Care Physician - Natacha Pringle This [...] Skin rash Duration: 7 Days Pickup at [facility]/pharmacy #[id number] New mupirocin topical (mupirocin Top 2% Oint) 1 Application Topical 3 times a day Skin rash Duration: 7 Days Pickup at [facility]/pharmacy #[id number] New predniSONE (predniSONE 20 mg Tab) 2 Tablets By Mouth Every day Skin rash Duration: 5 Days Pickup at [facility]/pharmacy #6173 Unchanged sumatriptan By Mouth Contact prescribing physician if questions or concerns Unchanged tizanidine (tiZANidine 4 mg Tab) Contact prescribing physician if questions or concerns Pharmacy Information [facility]/pharmacy #[id number]: [address] [place], [place] [phone] Allergies Bee Stings (Rash) Problems Ongoing - Any problem that you are currently receiving treatment for. BMI 27.0-27.9,adult Fatigue Seasonal allergies Wellness examination Patient Survey You may receive a survey via text or e-mail asking about your office visit. Please share your experience with us by completing your survey. We appreciate your feedback and thank you for choosing us for your care. [facility] Medicine Office/Clinic Noteon [phone] Medicine Office/Clinic NoteFaboston hospital for women Medicine Office/Clinic Note Chief Complaint rash HPI Staff 19 year old male presents for a rash, pt has multiple red spots located on his abdomen, back and one on his face. Pt states that he woke up today with the worse migraine that he has ever had but heis not currently in pain. Symptom onset: 12 [...] created with voice recognition software. Occasional wrong-word or???kighg-r-wfdu??? substitutions may have occurred due to the [...] the shower today. Has not tried any huen-bgl-hlfznjy medications or treatment. Has never had similar rash in the past. No changes in soaps lotions detergents. No recent medications no new medication exposures. 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 Patient states he did discharge somebody yesterday [...] mostly itching in nature states the area onthe right side of the nose appeared to be a pimple-like lesion which he tried squeezing it this morning but she states it drained some and now appears to be scabbed. States that lesions on the anterior chest and the upper portions of his back appear to be scabbed but states he did not scratch them.Denies any drainage. States a history of migraine headaches is prescribed sumatriptan by his PCP states he did wake with a headache this morning but denies any sore throat runny stuffy nose or recentviral-like illness. Denies fever or chills. He has [...] no yellow crusted lesions area on the rightside of the nose which patient states he noticed this morning which appeared to be similar. No hives or urticarial type rash no blistering or vesicular lesions rash is not painful patient states rashis pruritic. Mental Status: Alert and oriented x3. Normal mood and affect Assessment/Plan I spoke with patient regards to rash discussed that he complains that it is itching. Discussed thatrashes can be caused by multiple things that I be a contact dermatitis, bacterial, viral, fungal orallergy related. Patient has not changed any soaps lotions or detergents. No recent medications no new food exposures. Discussed that since he is on the nursing feels that the skin of the lesions maybe like early staph in which we could [...] cap(s), Refills(s) 0, Pharm (more content not included)...[facility] HospitalComment on above:Result Comment: Electronically Signed By: Pete HERNANDEZ, Rashard Fajardo\.br\Date and Time Signed: 01/16/2514:45 ESTLab - Toxicology Resultson [id number] - Toxicology Results [id number] QuantiFERON-TB Gold Pluson [id number] IncubationIncubation performed. Invalid Interpretation [facility] HospitalComment on above:Result Comment: Performed At: [id number] [address] [id number] Joellen Herron PhD Ph:[phone] By: #### [id number], [id number] #### [facility] (DEFAULT) [address] [place] [address] [id number]-VF Gold PlusNegativeInvalid Interpretation CodeNegativeSalem City HospitalComment on above:Result Comment: No response to M tuberculosis antigens detected. Infection with M tuberculosis is unlikely, but high risk individuals should be considered for additional testing (ATS/IDSA/CDC Clinical Practice Guidelines, 2017). The reference range is an Antigen minus Nil result of <0.35 IU/mL. Chemiluminescence immunoassay methodology Performed At: [facility] [id number] Joellen Herron PhD Ph:[phone] By: #### [id number], [id number], [id number] #### [facility] (DEFAULT) [address] [place] [address] [id number] Qnt LCon [id number] B Surf Ab Quant LC<3.5Low Immunity>10Magrkettering health HospitalComment on above:Result Comment: Status of Immunity Anti-HBs Level Inconsistent with Immunity 0.0 - 10.0 Consistent with Immunity >10.0 Performed At: [address] [id number] Joellen Herron PhD Ph:[phone] By: #### [id number], [id number], [id number] #### [facility] (DEFAULT) [address] [place] [address] [phone]/Mumps/Rubella Immunity LCon 60-07-9541Utlft Abs, IgG LC<9.0LowImmune >10.9Magrkettering health HospitalComment on above:Result Comment: Negative <9.0 Equivocal 9.0 - 10.9 Positive >10.9 A positive result generally indicates past exposure to Mumps virus or previous vaccination. Performed At: [address] [id number] Joellen Herron PhD Ph:[phone] By: #### [id number], [id number] #### [facility] (DEFAULT) [address] [place] [address] [id number] Antibodies, IgG LC1.57 indexInvalid Interpretation CodeImmune >0.99Magrkettering health HospitalComment on above:Result Comment: Non-immune <0.90 Equivocal 0.90 - 0.99 Immune >0.99Performed By: #### [id number], [id number], [id number] #### [facility] (DEFAULT) [address] [place] [address] 84517Vfywdrn Ab, IgG, EIA LC163.0 AU/mLInvalid Interpretation CodeImmune >16.4Magrkettering health HospitalComment on above:Result Comment: Negative <13.5 Equivocal 13.5 - 16.4 Positive >16.4 Presence of antibodies to Rubeola is presumptive evidence of immunity except when acute infection is suspected.Performed By: #### [id number], [id number], [id number] #### [facility] (DEFAULT) [address] [place] [address] [id number] Panel 10on 01-41-3911Xzas Screen CompleteCollected [facility] Community HospitalComment on above:Performed By: #### [id number] #### [facility] (DEFAULT) [address] [place] [address] [id number] Visit Summaryon [id number] Visit SummaryAmbulatory Visit Summary MARCO GÓMEZ :2005 Visit Date:10/22/2024 [...] Following Appointments Follow Up with Natacha Pringle, [facility], MED When: Medications What How Much When [...] you for choosing us for your care. [facility] Medicine Office/Clinic Noteon [id number] Medicine Office/Clinic NoteCharles [facility] Hospital Medicine Office/Clinic Note Chief Complaint productive cough, congestion HPI Staff 19 year old male presents with productive cough, SOB, fatigue onset 3 weeks OTC- day quil, sudafed, claritin History of Present Illness I have reviewed and verified the staff HPI to be accurate for this encounter. Portions of this record have been created with voice recognition software. Occasional wrong-word or???xmbns-n-njaf??? substitutions may have occurred due to the inherent limitations of voice recognition software. 19-year-old male presents with complaints of 3 weeks of symptoms including productive cough, shortness of breath and fatigue. 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 For his symptoms he has been using vtxc-zth-hsuglrg DayQuil, Sudafed and Claritin without much relief. Patient states he has had a lot of thick productive green mucus that heexpectorates from his chest and it does not [...] and hopefully allow him to expectorate a littlebetter. He did have a oxygen saturation of 100% when I checked it. Encouraged him to follow-up with primary care if he does not have improvement of his symptoms the next 3 to 5 days. He declined needfor work note. 1. Viral URI with cough [...] parent verbalized understanding of tx plan. Ordered: brompheniramine/dextromethorphan/PSE, 10 mL, Oral, QID for 5 day(s), 200 mL, Refill(s) 0, [facility] #[id number], 182, cm, 10/22/24 10:47:00 EST, Height/Length Dosing, 87.1, kg, 10/22/24 10:47:00 EST, Weight Dosing predniSONE, 40 mg = 2 tab(s), Oral, Daily, with food or milk, X 5 day(s), # 10 tab(s), Refills(s) 0, Pharmacy: [facility] #[id number], 182, cm, 10/22/24 10:47:00 EST, Height/Length Dosing, 87.1, kg, 10/22/24 10:47:00 EST, Weight Dosing 2. SOB (shortness of breath) (R06.02: Shortness of breath) Oxygen saturation was 100% we did prescribe a course of steroids as above. Patient should continue to drink plenty of fluids to help expectorate his secretions. Be sure to take frequent deep breaths.If you feel symptoms are becoming severe he should report to the emergency department. Ordered: brompheniramine/dextromethorphan/PSE, 10 mL, Oral, QID for 5 day(s), 200 mL, Refill(s) 0, [id number], 182, cm, 10/22/24 10:47:00 EST, Height/Length Dosing, 87.1, kg, 10/22/24 10:47:00 EST, Weight Dosing predniSONE, 40 mg = 2 tab(s), Oral, Daily, with food or milk, X 5 day(s), # 10 tab(s), Refills(s) 0, Pharmacy: [facility]/pharmacy #[id number], 182, cm, 10/22/24 10:47:00 EST, Height/Length Dosing, 87.1, kg, 10/22/24 10:47:00 EST, Weight Dosing XR Chest 2 Views Follow-up With When Contact Information Natacha Pringle, RAJI, MED Additional Instructions: (more content not included)...[facility] HospitalComment on above:Result Comment: Electronically Signed By: Jaylin Underwood\.br\Date and Time Signed: 10/22/24 11:46 ESTXR Chest 2 Viewson [id number] Chest 2 ViewsExam Date/Time: 10/22/2024 11:03 EST Reason for Exam: [...] TJ Technologist: SRF Technical Comments Radiation Dose: [place] in mGy = na DAP = naNorOhioHealth Pickerington Methodist HospitalAmbulatory Visit Summaryon 09-01-2024 Ambulatory Visit SummaryAmbulatory Visit Summary MARCO GÓMEZ :2005 Visit Date:09/01/2024 [...] you for choosing us for your care. [facility] Medicine Office/Clinic Noteon [id number] Medicine Office/Clinic NoteCharles River Hospital Medicine Office/Clinic Note HPI Staff Marco is [...] Daily, # 30 tab(s), Refills(s) 5, Pharmacy: [facility]/pharmacy #[id number], 182, cm, 07/07/24 11:31:00 EDT, Height/Length Dosing, 90, kg, 07/07/24 11:31:00 EDT, Weight Dosing rimegepant, 75 mg = 1 tab(s), Oral, Once, PRN Migraine headache, not to exceed 75 mg in 24 hours allow tablet to dissolve on tongue, # 10 tab(s), Refills(s) 1, Pharmacy: [facility]/pharmacy #[id number], 182, cm, 07/07/24 11:31:00 EDT, Height/Length [...] influenza virus vaccine, inactivated 09/09/2022 Recorded SARSCoV2 mRNA(gpppslydg-mxoy-tyuvfs) vac 06/06/2022 Recorded 2023-01-20: TPVALL SARSCoV2 mRNA(jxezyjomi-sbos-ubsqvv) vac 05/16/2022 Recorded 2023-01-20: TPVALL meningococcal group [...] 08/04/2004 Recorded measles/mumps/rubella virus vaccine 08/04/2004 Recorded diphth/hepB/pertussis,acel/polio/tetanus 03/13/2004 Recorded poliovirus vaccine, inactivated 2003 Recorded DTaP, unspecified formulation 2003 Recorded diphth/hepB/pertussis,acel/polio/tetanus 2003 Recorded hepatitis B pediatric vaccine 2003 RecordedMercy Health Urbana HospitalComment on above:Result Comment: Electronically Signed By: Natacha Pringlebr\Date and Time Signed: 09/01/24 14:59 EDTFamily Medicine Office/Clinic Noteon [id number] Medicine Office/Clinic NoteFamily Medicine Office/Clinic Note HPI Staff Marco is a 18 year old male presenting with DAPHNEY- Ordered Quilipta qd and Nurtec for abortive measures. Discussion to Neuro if these meds do nothelp Headaches: Time of Onset: _ Location: not [...] Daily, # 30 tab(s), Refills(s) 5, Pharmacy: [facility] #[id number], 182, cm, 07/07/24 11:31:00 EDT, Height/Length Dosing, 90, kg, 07/07/24 11:31:00 EDT, Weight Dosing atogepant, 60 mg = 1 tab(s), Oral, Daily, # 30 tab(s), Refills(s) 1, Pharmacy: [facility]/pharmacy #[id number], 182, cm, 06/11/24 9:00:00 EDT, Height/Length Dosing, 88.3, kg, 06/11/24 9:00:00 EDT, Weight Dosing rimegepant, 75 mg = 1 tab(s), Oral, Once, PRN Migraine headache, not to exceed 75 mg in 24 hours allow tablet to dissolve on tongue, # 10 tab(s), Refills(s) 1, [id number] 182, cm, 07/07/24 11:31:00 EDT, Height/Length Dosing, 90, kg, 07/07/24 1... rimegepant, 75 mg = 1 tab(s), Oral, Once, PRN Migraine headache, not to exceed 75 mg in 24 hours allow tablet to dissolve on tongue, # 9 tab(s), Refills(s) 1, [id number] 182, cm, 06/11/24 9:00:00 EDT, Height/Length Dosing, 88.3, kg, 06/11/24 9... [facility] [place] 2. BMI 27.0-27.9,adult (Z68.27: Body mass index [BMI] 27.0-27.9, adult) BMI education given Ordered: [facility] [place] 3. Former smoker (Z87.891: Personal history of nicotine dependence) continue not smoking Ordered: atogepant, 60 mg = 1 tab(s), Oral, Daily, # 30 tab(s), Refills(s) 5, [id number] 182, cm, 07/07/24 11:31:00 EDT, Height/Length Dosing, 90, kg, 07/07/24 11:31:00 EDT, Weight Dosing atogepant, 60 mg = 1 tab(s), Oral, Daily, # 30 tab(s), Refills(s) 1, [id number], 182, cm, 06/11/24 9:00:00 EDT, Height/Length Dosing, 88.3, kg, 06/11/24 9:00:00 EDT, Weight Dosing rimegepant, 75 mg = 1 tab(s), Oral, Once, PRN Migraine headache, not to exceed 75 mg in 24 hours allow tablet to dissolve on tongue, # 10 tab(s), Refills(s) 1, [facility], 182, cm, 07/07/24 11:31:00 EDT, Height/Length Dosing, 90, kg, 07/07/24 1... rimegepant, 75 mg = 1 tab(s), Oral, Once, PRN Migraine headache, not to exceed 75 mg in 24 hours allow tablet to dissolve on tongue, # 9 tab(s), Refills(s) 1, Pharmacy: [facility]/pharm[facility] #6173, 182, cm, 06/11/24 9:00:00 EDT, Height/Length Dosing, 88.3, kg, 06/11/24 9... [facility] [place] Follow-up No qualifying data [...] march 2024 Tobacco Use:. Former vaping or e-cigaretteuse Smokeless Tobacco Use:. Household tobacco concerns: No., 07/07/2024 Family History Diabetes mellitus type 2: Father. Hyperlipidemia: Father. Immunizations Vaccine Date Status Comments influenza virus vaccine, inactivated 08/12/2023 Recorded influenza virus vaccine, inactivated 09/09/2022 Recorded S (more content not included)...[facility] HospitalComment on above:Result Comment: Electronically Signed By: Natacha Pringle.navjot\Date and Time Signed: 07/07/24 12:43 EDTFamily Medicine Office/Clinic Noteon 06-11-2024 Family Medicine Office/Clinic NoteFarily Medicine Office/Clinic Note HPI Staff Marco is a 18 year old presenting with Headaches: Time of Onset: _ Started March Location: not addressed _ _ _ one buddhism or the other always stitches every time he gets a headache Typical headache frequency: _ almost every day Prior headache work-up: not addressed _ _ He thinks it is because he works nights and doesn't get much sleep. He is part- time now but his sleep is still messed up. Tried Melatonin did not help up to 20 mg nightly. Tried Benadryl exhausted all day the next day Sumatriptan did not help Qualepta somewhat helped, Jorge worked the best ( Got these from [...] stay on a sleep schedule. 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, 182, cm, 06/11/24 9:00:00 EDT, Height/Length Dosing, 88.3, kg, 06/11/24 9... 2. Former smoker (Z87.891: Personal history of nicotine dependence) continue not smoking Ordered: atogepant, 60 mg = 1 tab(s), Oral, Daily, # 30 tab(s), Refills(s) 1, [id number], 182, cm, 06/11/24 9:00:00 EDT, Height/Length Dosing, 88.3, kg, 06/11/24 9:00:00 EDT, Weight Dosing rimegepant, 75 mg = 1 tab(s), Oral, Once, PRN Migraine headache, not to exceed 75 mg in 24 hours allow tablet to dissolve on tongue, # 9 tab(s), Refills(s) 1, [id number], 182, cm, 06/11/24 9:00:00 EDT, Height/Length Dosing, 88.3, kg, 06/11/24 9... 3. BMI 22.0-22.9, adult (Z68.22: Body mass index [BMI] 22.0-22.9, adult) bmi education Ordered: atogepant, 60 mg = 1 tab(s), Oral, Daily, # 30 tab(s), Refills(s) 1, [id number], 182, cm, 06/11/24 9:00:00 EDT, Height/Length Dosing, 88.3, kg, 06/11/24 9:00:00 EDT, Weight Dosing rimegepant, 75 mg = 1 tab(s), Oral, Once, PRN Migraine headache, not to exceed 75 mg in 24 hours allow tablet to dissolve on tongue, # 9 tab(s), Refills(s) 1, Pharm[facility]: [facility], 182, cm, 06/11/24 9:00:00 [...] March 2024 Tobacco Use:. Former vaping or e-cigaretteuse Smokeless Tobacco Use:. Household tobacco concerns: No., 06/11/2024 Family History Diabetes mellitus type 2: Father. Hyperlipidemia: Father. Immunizations Vaccine Date Status Comments influenza virus vaccine, inactivated 08/12/2023 Recorded influenza virus vaccine, inactivated 09/09/2022 Recorded SARSCoV2 mRNA(djfuxetbp-uovg-xzikhq) vac 06/06/2022 Recorded 2023-01-20: TPVALL SARSCoV2 mRNA(ivqkphgre-izyv-jkkhvf) vac 05/16/2022 Recorded 2023-01-20: TPVALL meningococcal group B vaccine 09/15/2021 Recorded meningococcal group B vaccine 06/27/2021 Recorded 2024-06-10: DEYANIRA ARCEO RN meningococcal conjugate vaccine 06/27/2021 Recorded 2024-06-10: DEYANIRA ARCEO RN influenza virus vaccine, inactivated 10/12/2019 Recorded influenza v (more content not included)...[facility] Comment on above:Result Comment: Electronically Signed By: Natacha Pringle\Date and Time Signed: 06/11/24 09:41 EDTQuick Strepon 05-04-2023S. pyogenes Org specific cx Ql (Throat)[facility] Other Quick StrepExosome Diagnostics Other Quick Strepon 12-03-2022S. pyogenes Org specific cx Ql (Throat)[facility] Other Quofr StrepExosome Diagnostics Other CB AUTO DIFFon [id number] #0.1 103/ulNormal 0.0-0.1The [facility] CenterComment on above:Performed By: #### CBC #### [facility] [address] [address] [address] Rabia RizoBasophils/100 WBC (Bld)0.7 %Normal0.2-2.0The [facility] Comment on above:Performed By: #### CBC #### [facility] [address] [address] [address] Rabia Bonds #0.8 103/ulCritically high0.0-0.7The [facility] CenterComment on above:Performed By: #### CBC #### [facility] [address] [address] [address] Rabia Cardosoosinophils/100 WBC (Bld)8.9 %Critically high0.9-7.0The [facility] CenterComment on above:Performed By: #### CBC #### [facility] [address] [address] [address] Rabia Cardosorythrocyte distribution width (RBC) [Ratio]11.5 %Gecmqj25.0-15.0 The [facility] CenterComment on above:Performed By: #### CBC #### [facility] [address] [address] [address] Rabia RizoHematocrit (Bld) [Volume fraction]42.5 %Edsnvb05.0-54.0The [facility] CenterComment on above:Performed By: #### CBC #### [facility] [address] [address] [address] Rabia RizoHemoglobin (Bld) [Mass/Vol]14.5 g/aHGoicvn38.0-18.0The [facility] HospitalComment on above:Performed By: #### CBC #### [facility] [address] [place] [address] Dr. Rabia Fung #0.02 10e3/ulNormal0.00-0.03The [facility] CenterComment on above:Performed By: #### CBC #### [facility] [address] [place] [address] Dr. Rabia Fung %0.2 %Normal0.0-0.5The [facility] CenterComment on above: Performed By: #### CBC #### [facility] [address] [place] [address] Dr. Rabia Mahajan #1.8 103/ulNormal1.2-3.8The [facility] CenterComment on above:Performed By: #### CBC #### [facility] [address] [place] [address] Dr. Rabia Morrisonhocytes/100 WBC (Bld)20.0 %Critically low20.5-60.0The [facility] on above:Performed By: #### CBC #### [facility] [address] [place] [address] Dr. Rabia MccauleyUAL DIFF REQNONormalThe [facility] CenterComaspirus [facility] on above: Performed By: #### CBC #### [facility] [address] [place] [address] Dr. Rabia Nvoak (RBC) [Entitic mass]30.8 lmXznjac17.9-34.0The [facility] Hospitalment on above:Performed By: #### CBC #### [facility] [address] [place] [address] Dr. Rabia Novak (RBC) [Mass/Vol]34.1 g/yXXrnptu83.9-35.2The [facility] on above:Performed By: #### CBC #### [facility] [address] [place] [address] Dr. Rabia Novak (RBC) [Entitic vol]90.2 sGTzlxtk99.0-94.0The [facility] CenterComment on above:Performed By: #### CBC #### [facility] [address] [address] [address] Rabia Mcgregor #0.8 103/ulNormal0.3-0.8The [facility] CenterComment on above:Performed By: #### CBC #### [facility] [address] [address] [address] Rabia Barnesocytes/100 WBC (Bld)8.9 %Normal1.7-12.0The [facility] Comment on above:Performed By: #### CBC #### [facility] [address] [place] [address] Dr. Rabia Pepe #5.6 103/ulNormal1.4-6.5The [facility] CenterComment on above:Performed By: #### CBC #### [facility] [address] [place] [address] Dr. Rabia Alejandreutrophils/100 WBC (Bld)61.3 %Xyjacl55.0-75.0The [facility] CenterComment on above:Performed By: #### CBC #### [facility] [address] [place] [address] Dr. Rabia Ochoa mean volume (Bld) [Entitic vol]9.7 fLNormal9.5-13.5The [facility] CenterComment on above:Performed By: #### CBC #### [facility] [address] [place] [address] Dr. Rabia RizoPLT279 103/otFqjxya336-256Pla [facility] CenterComment on above: Performed By: #### CBC #### [facility] [address] [place] [address] Dr. Rabia RizoRBC4.71 106/ulNormal4.70-6.10The [facility] CenterComment on above:Performed By: #### CBC #### [facility] [address] [place] [address] Dr. Rabia RizoWBC9.1 103/ulNormal4.0-11.0The [facility] HospitalComment on above: Performed By: #### CBC #### [facility] [address] [address] [address] Rabia Arreola [id number] [Mass/Vol]mg/LNormal<=1.0The [facility] CenterComment on above:Performed By: #### CRP #### [facility] [address] [place], [place] [address] Dr. Rabia RizoXR SINUSES 3 VIEWS OR GREATERon 03-32-3503CZ SINUSES 3 VIEWS OR GREATERSinuses EXAMINATION: XR SINUSES 3 VIEWS OR GREATER HISTORY: Acute maxillary sinusitis COMPARISON: No relevant comparison available. FINDINGS: MAXILLARY: Suspect mild mucosal thickening. No fluid levels. ETHMOID: No mucosal thickening or fluid level. FRONTAL: Suspect mild mucosal thickening on left. SPHENOID: No mucosal thickening or fluid level. OTHER: Negative. IMPRESSION: 1. Findings suggest mild-moderate chronic sinusitis. Electronically authenticated by: MANDEEP DUNLAP Date: 2022-03-28 10:18[facility]XR CERVICAL SPINE (2-3 VIEWS)on 06-10-2674SO CERVICAL SPINE (2- 3 VIEWS)EXAMINATION: CERVICAL SPINE CLINICAL HISTORY: Chronic pain. No history of trauma reported COMPARISON: NONE 3 views of the cervical spine are submitted. There is mild straightening of the normal expected cervical lordosis. Prevertebral soft tissues areunremarkable. Disk spaces are intact No acute fracture. No spondylolisthesis. . IMPRESSION: NO ACUTE FRACTURE Interpreted by: Sreedhar Thomas MD Signed by: Sreedhar Thomas MD 12/19/21 Final resultNoSwedish Medical CenterXR wrist LT 2Von 08-07-6759CP wrist LT 2V[facility] [employer] Other XR wrist LT 2VSonoma Developmental Center [employer] Other XR wrist LT [id number] [place] [address] [employer] Other XR wrist LT [address] [employer] Other XR wrist LT 2VTexas [facility] [employer] Other XR wrist LT 2VSignedNossm health cardinal [facility] [employer] Other XR wrist LT 2VPatient: Marco Gómez MR#: [id number] [place] [employer] Other XR wrist LT [id number] [employer] Other XR wrist LT 2VDOB: 2005 Acct:[id number] [employer] Other XR wrist LT 2VAge/Sex: 16 / M ADM Date: 10/18/21[place] [employer] Other XR wrist LT 2VLoc: SOXD Room: Type: [facility] [employer] Other xr wrist LT 2VAttending Dr: Tyson Pires [facility] HospitalConne[facility] Other xr wrist LT 2VOrdering Provider: Tyson Pires DO [facility] Other xr wrist LT 2VDate of Service: 10/18/21[place] [employer] Other xr wrist LT 2VAccession #: ([id number]) XR/XR wrist LT 2V: Mass of left wristNossm health cardinal glennon children's hospital [employer] Other xr wrist LT 2VCopies to: Tyson Pires, [employer] Other xr wrist LT 2VLeft wrist 10/18/2021.[facility] Other xr wrist LT 2VCLINICAL DATA: Left wrist mass.[facility] Other xr wrist LT 2VFINDINGS: 2 views of the left wrist were obtained.[facility] Other xr wrist LT 2VNo acute fracture or dislocation is identified. No early degenerative or other arthritic changesMoundsville [facility] Other xr wrist LT 2Vare seen. No bony erosion or destruction is visualized. There is localized soft tissue swelling atMoundsville [facility] Other xr wrist LT 2Vthe dorsal aspect of the wrist.[facility] Other xr wrist LT 2VORDER #: [id number] XR/XR wrist LT 2V [facility] Other xr wrist LT 2VIMPRESSION: Dorsal soft tissue swelling. No acute bony abnormality.[facility] Other xr wrist LT 2VImpression dictated by: Ozzy Cid Jr., M.D.10/18/2021 4:15 PMNsaint alexius hospital [employer] Other xr wrist LT 2VDictation Location: [address] [employer] Other xr wrist LT 2VTranscribed By: [facility] 10/18/[address] [place] [address] [employer] Other xr wrist LT 2VDictated By: Ozzy Cid Jr, MD 10/18/[address] [place] [address] [employer] Other xr wrist LT 2VSigned By:[facility] Other xr wrist LT 2V112/19/20 [facility] SystemsEmbly Other Operative Reporton [id number] ReportMR#: [id number] S [facility] Pt. Name: Marco Gómez Room #: 0C Discharge Date: Birthdate: 2005 OPERATIVE REPORT DATE OF SURGERY: 04/03/2018 SURGEON: Bill Hurt M.D. ELECTRICIAN SECOND: Nadine Valera M.D. PREOPERATIVE DIAGNOSES: 1. Right [...] His head was placed in a head gauge unit operator, which was evaluated by both Orthopedics and [...] P/Bill Hurt M.D. Date Trans: 04/04/2018 07:31 Cynthia/king DN_JN:[id number] cc: Rafita March M.D. [address] [place] [id number] Radhames Ortiz DO [address] [facility] [address]MtnhrlSjfPaulding County Hospital GLUCOSE LABon 32-26-2956Qgeceav mass conc75 mg/iRJqhrtf13-143Zqw [facility] SystemComment on above:Performed By: #### [id number] #### [facility] Annie OLSEN[address] Vital Signs Date TimeVital SignValuePerforming BknrbeqmsQbdnfgeg05-56-1661 09:52-0400Body .3 Barbarakacidomingo Zafarbeckir BRIDGE INSPECTOR Work Phone: [facility] InstituteXkbttazdzr25-64-9191 09:52-0400Body mass index (BMI) [Ratio]25.66 kg/z4OtgkkxNolvia Zafarmor BRIDGE INSPECTOR Work Phone: [phone] [place], [place] [address]Tldohtzkdp22-23-8409 09:52-0400Body ldsazv89.46 kgAngela Charismamor BRIDGE INSPECTOR Work Phone: [phone] [place], [place] [address]Mztdvvocvu14-85-4672 09:52-0400Diastolic blood wcehqqvr96 mm[Hg]Nolvia Sewellr BRIDGE INSPECTOR Work Phone: [phone] [place], [place] [address]Ydbluiqqcq81-59-2802 09:52-0400Heart rate70 /min Nolvia Sewellr BRIDGE INSPECTOR Work Phone: [phone] [place], [place] [address]Pywxlambmh11-54-0115 09:52-1921TgA9% (BldA) [Mass fraction]99 %Nolvia Charismamor BRIDGE INSPECTOR Work Phone: [phone] [place], [place] [address]Ybubyqilcg16-81-2626 09:52-0400Systolic blood xpezoahc158 mm[Hg]Nolvia Zafarmor BRIDGE INSPECTOR Work Phone: [phone]-[facility] InstituteAhjdfibvdi18-16-0364 13:41-0500Body .3 cmAmitul Zafarmor BRIDGE INSPECTOR Work Phone: [phone] [place], [place] [address]Gkxutavfsy59-45-2804 13:41-0500Body mass index (BMI) [Ratio]26.22 kg/u5LbfpzsNolvia Zafarmor BRIDGE INSPECTOR Work Phone: [phone] [place], [place] [address]Vmbqnwcwfi59-37-7296 13:41-0500Body vtzaks04.28 kgNolvia Zafarmor BRIDGE INSPECTOR Work Phone: [phone]-[facility] InstituteFbdfdzkzvb47-21-4972 13:41-0500Diastolic blood evzlesas41 mm[Hg]Nolvia Zafarmor BRIDGE INSPECTOR Work Phone: [phone] [place], [place] [address]Awbieizpcf99-05-9548 13:41-0500Heart rate72 /min Nolvia Zafarsoto BRIDGE INSPECTOR Work Phone: [facility] InstituteYdjibmbukq81-88-3145 13:41-0500Systolic blood obuyjara029 mm[Hg]Nolvia Sewellamie BRIDGE INSPECTOR Work Phone: [facility] InstituteHrnaquytfy56-15-5084 10:44-0500Blood Pressure LocationPatricsofía Mary 600-3752Rekdnv-JufjrWhite [facility] Nexf69-05-3645 10:44-0500Body xmhvvfoxbai93.7 [degF]Trini Humphreyfidelelizabeth [phone]-AanouWhite Hospital [facility] Nlug47-32-8956 10:44-0500Diastolic blood kdsnorsm53 mm[Hg]Trini Andreaer 209-4984Jjvsub-PytfpWhite Hospital [facility] Rrvh37-93-9146 10:44-0500Heart rate63 /minPatricia Andreaer 806-2562Frzkzm-XffleWhite Hospital [facility] Culp54-06-1230 10:44-0500Respiratory rate18 /minPatricia Andreaer [phone]-WzlcnWhite [facility] Eymr93-54-7161 10:44-5614KjI6% (BldA) [Mass fraction]97 %Trini Humphreyfideler 447-0557Updjnw-FmjbxWhite [facility] Ppxd97-75-0606 10:44-0500Systolic blood tcjjecbx254 mm[Hg]Trini Humphreyfideler 330-2855Zvnxcr-YkhzrWhite [facility] Rmmb41-92-2440 16:49-0500Body yzzaan535.3 cmNicole Yuan DO Work Phone: [facility] InstituteAbozennvlk98-16-9718 16:49-0500Body mass index (BMI) [Ratio]27.5 kg/b8Olrlhh Yuan DO Work Phone: noDeaconess Incarnate Word Health SystemPfolkvuzld60-36-6305 16:49-0500Body vnaofr34.45 kgNicole Yuan DO Work Phone: [facility] InstituteXlkfazkulq97-89-5370 16:49-0500Diastolic blood zurcldce62 mm[Hg]Lorrie Yuan DO Work Phone: [facility] InstituteXfhxhglbpk25-19-5223 16:49-0500Heart rate70 /min Lorrie Yuan DO Work Phone: [facility] InstituteBvklfxjtao54-95-4390 16:49-7115DuY9% (BldA) [Mass fraction]100 %Lorrie Yuan DO Work Phone: [place] [address]Veqoavlosh59-86-2853 16:49-0500Systolic blood ruuvdtyl441 mm[Hg]Lorrie Yuan DO Work Phone: [facility] InstituteLbppohejpy90-61-7891 11:10-0400Body jimedo894.9 cmNicole Yuan DO Work Phone: [facility] InstituteSbygikocpc47-25-3631 11:10-0400Body mass index (BMI) [Ratio]26.45 kg/l9Brqtjw Yuan DO Work Phone: [facility] InstituteRnonsnncdx40-20-7383 11:10-0400Body dlomel40.45 kgNicole Yuan DO Work Phone: [facility] InstituteUnymxqwbfk85-69-1934 11:10-0400Diastolic blood qbbhjefu24 mm[Hg]Lorrie Yuan DO Work Phone: [facility] InstituteAwltuqaoxm90-95-0679 11:10-0400Heart rate76 /min Lorrie Yuan DO Work Phone: [place] [address]Jixyztniqp92-67-4681 11:10-9288OhC4% (BldA) [Mass fraction]97 %Lorrie Yuan DO Work Phone: [facility] InstituteObbgvggdvw54-38-6909 11:10-0400Systolic blood idcdltjv351 mm[Hg]Lorrie Yuan DO Work Phone: [facility] InstitutePvzbdktmmp15-35-3594 10:48-0500Body temperature 98.42 [degF][facility]12-26-2023 10:48-0500 Diastolic blood rboexunu19 mm[Hg][facility] 11-05-2023 10:48-0500Heart fpkd069 /minC[facility]12-26-2023 10:48-0500Respiratory rate18 /minC[facility]12-26-2023 10:48-6410CvT4% (BldA) [Mass fraction]95 %[facility]12-26-2023 10:48-0500Systolic blood pressure 145 mm[Hg][facility]06-24-2023 10:50-0400Body nveqjuybzyz12.8 [degF]Ally Pena Other [place] [facility] Other 06-24-2023 10:50-0400Body tsqilz61.11 kgAlly Pena Other [place] [facility] Other 06-24-2023 10:50-0400Respiratory rate18 /minAlly Pena Other [facility] Other 06-24-2023 10:50-6085PdQ8% (BldA) [Mass fraction]98 % Ally Pena Other [place] [facility] Other 03-12-2023 09:28-0400Blood Pressure LocationAurora Orzech [phone]-IizuoWhite Hospital [facility] Bkda20-03-4752 09:28-0400Body zcavpmrbmcu84.52 [degF]Noemy Orzech [phone]-UolovWhite Hospital [facility] Dxrv22-46-4945 09:28-3420igobuztlwptkj3.52Aurora Orzech 584-1943Sawnxp-LqvysWhite Hospital [facility] CareComment on above:Result Comment: ^~:!ZScore [facility] SystemLHK17-53-0580 09:28-0400Diastolic blood kiluvzbx57 mm[Hg]Noemy Orzech [phone]-ZtqfgWhite [facility] Kcuj92-76-1807 09:28-0400Heart rate68 /minAurora Orzech [phone]-BzeaeWhite [facility] Etln02-30-5035 09:28-0400Height/Length Gxhppiqnwr45.04Aurora Orzech 399-4130Ykgfle-AweelWhite Hospital Convenient CareComment on above:Result Comment: ^~:!Percentile [place] [address]-12-2023 09:28-0400 Height/Length Z-Score0.74Aurora Orzech [phone]-LrvepWhite Hospital [facility]venient CareComment on above:Result Comment: ^~:!ZScore [facility] SystemRPQ60-28-7554 09:28-0400Respiratory rate16 /minAurora Orzech [phone]-RpcpsWhite Hospital [facility] Ytyy72-51-9171 09:28-0400Systolic blood gggzmvny452 mm[Hg]Noemy Orzech [phone]-YqvtrWhite Hospital [facility] Pvmf11-16-4523 09:28-4371guiyyb0.87Aurora Orzech [phone]-MdqarWhite Hospital Convenient CareComment on above:Result Comment: ^~:!ZScore [facility] SystemQDI90-38-5845 09:28-0400Weight Iydzxrvpji11.71 %Noemy Orzech [phone]-BbqzsWhite Hospital [facility] CareComment on above:Result Comment: ^~:!Percentile [facility] SystemTTG38-46-7824 14:05-0500Body lifakbsxcva30.2 [degF]Cassandra Allen Other [place] [facility] Other 01-23-2023 14:05-0500Body yajkhe06.11 kgCassandra Allen Other [facility] Other 01-23-2023 14:05-0500Respiratory rate18 /minCassandra Allen Other [facility] Other 01-23-2023 14:05-7375OtX5% (BldA) [Mass fraction]97 % Cassandradomingo Allen Other [facility] Other 03-18-2022 16:00-0400Body evsziz286.88 cmPeggy Lee Other [facility] Other 03-18-2022 16:00-0400Body mass index (BMI) [Ratio] 25.77 kg/b0Boahh Lee Other [facility] Other 03-18-2022 16:00-0400Body dkwvkoqyqnh65.3 [degF]Sigrid Lee Other [facility] Other 03-18-2022 16:00-0400Body iaofgr59.18 kgPeggy Lee Other [facility] Other 03-18-2022 16:00-9315WdA6% (BldA) [Mass fraction]97 % Sigrid Lee Other [facility] Other 12-08-2021 13:00-0500Body lfvbar151.88 cmJujohn Pires Other [facility] Other 12-08-2021 13:00-0500Body mass index (BMI) [Ratio] 25.77 kg/j9Ookaym Lex[facility] Other [facility] Other 12-08-2021 13:00-0500Body uabdtm14.18 kgTyson Pires Other [facility] Other Encounters Encounter DateEncounter TypeCare ProviderFacilityStart: 09-11-2025 End: 70-25-8149Gpmunzmgu department patient visitRYAN NEMUNAITISFacility:[facility] HospitalStart: 07-19-2025 End: 96-95-4582dpenjbhdngLajhynpw C BordnerFacility:FTMCStart: 07-19-2025 End: 03-22-9548Qsyevef encounter procedurePapedro Hernandez [phone]-MrimtWhite Hospital Convenient Care Start: 07-10-2025 End: 02-08-8895apdhwevrmgGvcmucuwd L ClarkFacility:CC Tamikotart: 07-10-2025 End: 83-73-0250Cuvmdrz encounter procedureThu Ospina [phone]-NidlnWhite Hospital [facility]ven[facility] Care Start: 04-15-2025 End: 21-91-6663Ekc Drop offJotri L Martinez [facility] Start: 04-15-2025 End: 41-69-8421jplykkzapaYlis L SchwabFacility:[facility] BellevueStart: 03-17-2025 End: 88-21-3039jhigeisesoGxwh L SchwabFacility:[facility] BellevueStart: 03-11-2025 End: 97-84-4903cgjxhccszoJbmfofl HARWOODFacility:[facility] WellnessStart: 03-05-2025 End: 72-93-6949xfliazvqhvQede L SchwabFacility:[facility] BellevueStart: 03-02-2025 End: 43-40-5513uctsnkvqwqYKBAZO A LEHMANNFacility:[facility] FM BellevueStart: 02-11-2025 End: 14-61-7875wppqdnbmrkPzak L SchwabFacility:[facility] FM BellevueStart: 01-21-2025 End: 41-52-9605Excxor flowsheetAngela Charismamor BRIDGE INSPECTOR Work Phone: aNA BELLEVUEStart: 01-21-2025 End: 74-74-0406Djjeal flowsheetAngela Charismamor BRIDGE INSPECTOR Work Phone: aNA BELLEVUEStart: 01-21-2025 End: 22-86-4241Ymtkbs outpatient visit 25 minutesAngezeferino Tex BRIDGE INSPECTOR Work Phone: aNA BELLEVUEComment on above:Intractable chronic migraine without aura and without status migrainosus (CMS/HCC) (Primary Dx); Inadequate sleep hygieneStart: 01-21-2025 End: 39-44-3338mlotkqbmgoLADRAK CHARISMAMORNot AvailableStart: 01-16-2025 End: 33-82-7160xwizpwfelyYtbsd Tana PhillipspseyFacility:JUDIT NorwalkStart: 12-31-2024 End: 73-59-7381latxztvwlcQspn ProviderFacility:[facility]DeWitt General Hospitaltart: 11-24-2024 End: 49-47-1098Wfzans flowsheetAngela Charismamor BRIDGE INSPECTOR Work Phone: aNA BELLEVUEStart: 11-24-2024 End: 75-37-9399Asquco flowsheetAngela Charismamor BRIDGE INSPECTOR Work Phone: aNA BELLEVUEStart: 11-24-2024 End: 11-02-6297Emifsw outpatient visit 25 minutesAngezeferino Donator BRIDGE INSPECTOR Work Phone: aNA BELLEVUEComment on above:Intractable chronic migraine without aura and without status migrainosus (CMS/HCC) (Primary Dx); Shift work sleep disorder; Sleep deprivationStart: 11-24-2024 End: 61-58-5372xkgewshatkBGTKZM CHARISMAMORNot AvailableStart: 10-22-2024 End: 76-10-2588ulgvcxqyzjRraobcrf Derek MendezerFacility:FTMCStart: 10-22-2024 End: 57-01-2913Afmxqrt encounter procedurePatricia Derek Hernandez [facility] Start: 09-22-2024 End: 73-42-9681rxrxdjlvlmVNSPNK DANNERNot AvailableStart: 09-22-2024 End: 44-08-1001Lszprg outpatient visit 25 minutesNicole Yuan DO Work Phone: noms [place] NEUROComment on above:Sleep deprivation (Primary Dx); Intractable chronic migraine without aura and without status migrainosus (CMS/HCC); Shift work sleep disorderStart: 09-01-2024 End: 95-52-3146oteemagxrwTubz L SchwabFacility:[facility] BellevueStart: 07-21-2024 End: 93-03-9835Nchkjx flowsheetNicole Yuan DO Work Phone: noms NEUROLOGYStart: 07-21-2024 End: 81-18-3702Iughoe flowsheetNicole Yuan DO Work Phone: noms NEUROLOGYStart: 07-21-2024 End: 94-18-4693Pnovqs consultation new/estab patient 60 minNicole Yuan DO Work Phone: noms NEUROLOGYComment on above:Chronic daily headache (Primary Dx); Intractable chronic migraine without aura and without status migrainosus (CMS/HCC); Tension headache; Shift work sleep disorder; Sleep deprivation; Inadequate sleep hygieneStart: 07-21-2024 End: 99-32-3683maxjpoxpolCRPZYX DANNERNot AvailableStart: 07-07-2024 End: 18-97-5187nspcvtmaupZcgu L SchwabFacility:[facility] BellevueStart: 06-11-2024 End: 22-21-9299haaiamowzrOfoq L SchwabFacility:[facility] BellevueStart: 11-05-2023 End: 61-14-6833Dogooychl department patient visitAstrit Popeye [facility] Start: 08-12-2023 End: 80-47-8091rijemamkdiWkiva P KunsFacility:[facility] Start: 08-12-2023 End: 51-42-2207phnugyjwcgJO Kim E Joaquim Work Phone: [facility] Work Phone: Start: 08-12-2023 End: 66-09-5316Hwujjsz encounter procedureMD Rafita March Work Phone: [facility]-Flu VaccineStart: 05-04-2023 End: 29-65-0460yzorffpnqyQlqrdx Lewis Other [email or web address] [facility] Other Start: 02-84-2673Mhsymw outpatient visit 15 minutes Ally [facility] RoadStart: 01-20-2023 End: 37-57-8719Xejppxq encounter procedureAurora X Dejon [phone]-GhdkwWhite Hospital [facility] Start: 12-03-2022 End: 82-53-2746szkosozqbnOjbaze Dymond Other [email or web address] [facility] Other Start: 84-25-7851Mcdcwj outpatient visit 15 minutes Cassandra AllenFPG [facility] Fair Haven RoadStart: 03-28-2022 End: 59-54-2895lkuasrthhiBT RAFITA MARCHFacility:G3Shmjg: 01-26-2022 End: 79-32-7541lbwhsrfbjvHafhc Hart Other [facility] Other Start: 69-53-0067Ktikqe outpatient visit 15 minutes Sigrid HartFPG Urgent Care ClydeStart: 12-25-2021 End: 20-32-4203pppivwqjpgLtvgst Kelley Other [facility] Other Start: 30-09-2216Gmjeou follow up visit related to original [facility] OrthopedicsStart: 12-19-2021 End: 54-86-9436dxjirfmbssPNP E KNIGHTVail Health Hospitaltart: 10-18-2021 End: 01-08-4787vekslhclriAustxc Kelley Other [facility] Other Start: 50-76-3678Rqgwdo outpatient new 45 minutes Tyson Cárdenas OrthopedicsStart: 92-22-5484imfolflnovELAMFF OLEXA Facility:N8Tiybn: 09-04-2021 End: 06-12-1325ojipqspyxfQK RAFITA Remigio [facility]ONFacility:P6Dwryy: 04-14-2018 End: 68-41-1754Xcpisdr encounter procedurePATRICFarhan N SIPARSKYFacility:[facility] MEXICOtart: 04-03-2018 End: 61-40-3919Zmykuej encounter procedurePATRICK N SIPARSKYFacility:[facility] NEW MEXICOtart: 03-17-2018 End: 65-37-0833Cxxghmk encounter procedureDEFAULT PHYSICIANFacility:[facility] Procedures DateProcedureProcedure DetailPerforming ClinicianStart: 86-96-7248MIVMVS SURGERY OF SHOULDERCOLLEEN LANCZStart: 31-05-2684ELXNRRZT ARTHROSCOPY/SURGERYPATRICK N SIPARSKYRepair of meniscusAurora Orzech Repair of musculotendinous cuff of shoulderAurora Orzech TonsillectomyAurora Orzech Plan of Treatment DateCare ActivityDetailAuthorStart: 03-18-2025 End: 31-18-1823Qgparwz encounter jwoispahu99/08/2025 11:00 AM EDT Office Visit [place]AR[place]IN [place] [address] [place] [address] Nolvia Nice NP [address] [facility] [place] DARVIN ROSStart: 02-10-2025 End: 68-83-2403Mzalqny encounter /02/2025 9:40 AM EDT Office Visit DARVIN CORNEJO [address] [place] [address] Nolvia Nice, BRIDGE INSPECTOR [address] [place] DARVIN WILSONtart: 01-21-2025 End: 11-81-8559MR Brain WO contrastMR brain wo contrast Imaging High Priority Intractable chronic migraine without aura and without status migrainosus (CMS/HCC) Expected: 01/21/2025 (Approximate), Expires: 01/21/2026[facility] Work Phone: comment on above:Expected: 01/21/2025 (Approximate), Expires: 01/21/2026Start: 01-21-2025 End: 51-48-1377Ybucqjr encounter wbrkmodgk39/13/2025 10:00 AM EDT Office Visit [place]IN [place] [address] [place] [address] Nolvia Nice, BRIDGE INSPECTOR [address] [place], [place] ArrivedANA BELLEVUEComment on above:ArrivedStart: 11-24-2024 End: 58-48-5104Lwzxeeo encounter hlwjzfits58/14/2025 1:40 PM EST Office Visit DARVIN [place] [address] [place] [address] Nolvia Nice BRIDGE INSPECTOR [address] [place], [place] ArrivedANA BELLEVUEComment on above:ArrivedStart: 11-17-2024 End: 63-81-3653Hdwimlb encounter trevoufma08/07/2025 4:20 PM EST Office Visit NOMRach CONROY [address] [place] [address] Nolvia Nice, BRIDGE INSPECTOR [address] [place], [place] NOMS NE NEUROStart: 09-22-2024 End: 90-87-2523Xblicke encounter okchuygus39/12/2024 4:45 PM EST Office Visit [facility] THEO NEURO [address] [place] [address] Lorrie Bolden, DO [address] [place] [address] NOMS NE NEUROStart: 07-21-2024 End: 39-06-7255Lazowff encounter jaqrpknbz22/10/2024 11:00 AM EDT Office Visit [facility] [address] [facility] [address] [place] [phone] Lorrie Bolden, DO [address] [place] [address] [facility]GR[facility] NEUROLOGYComment on above:ArrivedStart: 54-85-7398Lzrtdjniy vaccinationInfluenza Vaccine (#1)[facility] Immunizations Immunization DateImmunizationNotesCare QkdyyklkQricjoje83-85-0222trbrwyeyj B vaccine, adult dosageJodi Martinez [phone]-RstdkUniversity Hospitals Geaug[facility] Medical Center 69-36-9317vhxjcsqyo virus vaccine, unspecified formulationPatricia Mary [phone]-NdhnlUniversity Hospitals Geauga Medical Center 47-15-6110ebbmpxxqm virus vaccine, unspecified formulationNicole Yuan DO Work Phone: [facility] InstituteFlqhpdungm62-99-0837iydpncdnh virus vaccine, unspecified formulationAurora Orzech [phone]-TlyigWhite Hospital [facility] Lclh95-75-0792 Influenza, injectable, Madin [place] Canine Kidney, preservative free, quadrivalentNicole Yuan DO Work Phone: [facility] InstituteKcugfsurax14-80-0772WJLE-CvO-0 mRNA (zqwkdhfbynw-spid-mlooazk) vaccineAurora Orzech [phone]-WjrzuWhite Hospital Convenient CareComment on above:Result Comment: 2023-01-20: IADLFS84-95-6952GQUV-TwA-9 mRNA (ltnungpgzbz-hjlx-qfrxijr) vaccineAurora Orzech [phone]-CtjuoWhite Hospital Convenient CareComment on above:Result Comment: 2023-01-20: AGQZTW66-08-9490oqcfzaeihoqrh B vaccine, fully recombinantPatricia Bordner [phone]-NffppUniversity Hospitals Geauga Medical Center 10-91-1701wafraubouklbg B vaccine, recombinant, OMV, adjuvantedNicole Yuan DO Work Phone: [facility] InstitutePyvmahskxx10-15-5150vgakjcvlfwglb ACWY vaccine, unspecified formulationNicole Yuan DO Work Phone: [facility] HealthcareComment on above:Result Comment: 2024-06-10: DEYANIRA ARCEO, PB51-08-8858ybwyzxtmyydyk B vaccine, fully recombinant Trini Andreaer [phone]-ZugnxUniversity Hospitals Geauga Medical Center Comment on above:Result Comment: 2024-06-10: DEYANIRA ARCEO, EO06-62-1140 meningococcal B vaccine, recombinant, OMV, adjuvantedNicole Yuan DO Work Phone: [facility] InstitutePhqhqluwki20-17-2171zsjjrbecawzbv oligosaccharide (groups A, C, Y and W-135) diphtheria toxoid conjugate vaccine (MCV4O)Lorrie Yuan DO Work Phone: [facility] InstituteSjpduykvzg85-78-2088oeqdjxfhf virus vaccine, unspecified formulationPatricia Bordner [phone]-HvatcUniversity Hospitals Geauga Medical Center 70-12-7646qdewjodoz, injectable, quadrivalent, preservative freeNicole Yuan DO Work Phone: [facility] InstituteEazlktfhnq51-15-9034gvzaumhtw, injectable, quadrivalent, preservative freeTyson Pires Other [place] [facility] Other 1897794-73-7086avmruyuhd virus vaccine, unspecified formulationNicole Yuan DO Work Phone: [facility] InstituteBljowlflwr30-80-7791riktwmgec virus vaccine, unspecified formulationPatricia Bordner [phone]-YloamUniversity Hospitals Geauga Medical Center 89-15-3386Alynakmfr, injectable, Madin [place] Canine Kidney, preservative free, quadrivalentNicole Yuan DO Work Phone: [facility] InstituteSkqxpppnvo30-05-0673OKS, unspecified formulation Lorrie Yuan DO Work Phone: [facility] InstituteMekieqxach50-38-2546RQI, unspecified formulation Trini Mary [phone]-NdnzdUniversity Hospitals Geauga Medical Center 17-02-7803Nnhri Papillomavirus 9-valent vaccineNicole Yuan DO Work Phone: [facility] InstituteZxxpkkcfso76-77-2721ekxwzrrftfiaw ACWY vaccine, unspecified formulationNicole Yuan DO Work Phone: [facility] InstituteFvtydbjufk72-37-9908qspagitnmzgtd polysaccharide (groups A, C, Y and W-135) diphtheria toxoid conjugate vaccine (MCV4P)Lorrie Yuan DO Work Phone: [facility] InstituteMxtwfcewud33-42-2829smnmayp toxoid, reduced diphtheria toxoid, and acellular pertussis vaccine, adsorbedNicole Yuan DO Work Phone: [facility] InstituteYqnborcbpt05-29-2932ilplnjnqq virus vaccine, unspecified formulationPatricia Bordner [phone]-KkqatUniversity Hospitals Geauga Medical Center 82-77-9827dawwodtme, seasonal, injectable, preservative freeNicole Yuan DO Work Phone: [facility] InstituteEnhinzvntt79-78-5148Ebs A, unspecified formulationPatricia Bordner [phone]-YyvsyUniversity Hospitals Geauga Medical Center 57-30-6952akadzwxia A vaccine, unspecified formulationNicole Yuan DO Work Phone: [facility] InstituteHrujskwdix55-08-6245qxraqxhecg, tetanus toxoids and acellular pertussis vaccine, unspecified formulationNicole Yuan DO Work Phone: [facility] InstituteLwswlrqoml19-92-3905IPjE, unspecified formulation Trini Bordner [phone]-UxevkUniversity Hospitals Geauga Medical Center 53-56-8445Ahi A, unspecified formulationPatricia Bordner [phone]-XhnytUniversity Hospitals Geauga Medical Center 88-22-8664gjllyygdc A vaccine, unspecified formulationNicole Yuan DO Work Phone: [facility] InstituteQrexzpyiwo05-44-5013uitvjlh, mumps and rubella virus vaccineNicole Yuan DO Work Phone: [facility] InstituteDciwvruxfv53-91-8829beklqtetze vaccine, inactivatedNicole Yuan DO Work Phone: [facility] InstituteWdnyisobin54-19-7424lnievfucum vaccine, unspecified formulationNicole Yuan DO Work Phone: [facility] InstituteQbbdgffimq54-08-9002qufosxqfh virus vaccineNicole Yuan DO Work Phone: [facility] InstituteIumcynsjkx82-26-6234unrtazqtq virus vaccine, unspecified formulationPatricia Bordner [phone]-CfmlfUniversity Hospitals Geauga Medical Center 96-28-3395ekllhbgop, seasonal, injectableNicole Yuan DO Work Phone: [facility] InstituteYxtgrubuxn00-79-2983srfgaiklj virus vaccine, live, attenuated, for intranasal useNicole Yuan DO Work Phone: [facility] InstituteYoevblaicj01-92-0733fjwfgqwot virus vaccine, unspecified formulationPatricia Bordner [phone]-QkuxuUniversity Hospitals Geaug[facility] Medical Center 06-53-9191zpvsgwxnn, seasonal, injectableNicole Yuan DO Work Phone: [facility] InstituteLviwkjitfc31-99-0641ogegubbvsz, tetanus toxoids and acellular pertussis vaccine, unspecified formulationNicole Yuan DO Work Phone: [facility] SystemRezlbuklwp24-35-3331NKlK, unspecified formulation Trini Bordner [phone]-BignfUniversity Hospitals Geauga Medical Center 80-90-8761fjmfkbuxofx influenzae type b vaccine, HbOC conjugateNicole Yuan DO Work Phone: [facility] SystemGapvmewsrl57-69-6163jtliebhix virus vaccine, unspecified formulationPatricia Bordner [phone]-LhkvsUniversity Hospitals Geaug[facility] Center 10-43-3638sdvzlnrif, seasonal, injectable, preservative freeNicole Yuan DO Work Phone: [facility] SystemWwtrafiflu14-15-8049bjljlik, mumps and rubella virus vaccineNicole Yuan DO Work Phone: [facility] SystemCkzbxfdvtq29-38-6191ekgeqiwvvjeb conjugate vaccine, 7 valentNicole Yuan DO Work Phone: [facility] SystemIwxzgscavv52-91-7207jjogjeyki virus vaccineNicole Yuan DO Work Phone: [facility] SystemCstzkehybj35-03-6711BGsQ-jnfszauwd B and poliovirus vaccineNicole Yuan DO Work Phone: [facility] SystemPxxlyjoqfd67-01-4350rjpdlyykxwf influenzae type b vaccine, HbOC conjugateNicole Yuan DO Work Phone: [facility] SystemWcayelvair99-63-0527btgkjvvnselr conjugate vaccine, 7 valentNicole Yuan DO Work Phone: [facility] SystemSioqojhnhg10-59-5161rvtvdwybot, tetanus toxoids and acellular pertussis vaccine, unspecified formulationNicole Yuan DO Work Phone: [facility] SystemBjykytyzes46-03-8892HTbV, unspecified formulation Trini Bordner [id number]ucWhite [facility] [place] 37-52-5737ianeiqycona influenzae type b vaccine, HbOC conjugateNicole Yuan DO Work Phone: [facility] SystemCxmzwoxaco05-85-2348jpowdpyxtfze conjugate vaccine, 7 valentNicole Yuan DO Work Phone: [facility] SystemHgzkbhbidw33-68-2799uwbkznrshf vaccine, inactivatedNicole Yuan DO Work Phone: [facility] SystemKzeuerdzcq12-95-1108skpwfmsxvf vaccine, unspecified formulationNicole Yuan DO Work Phone: [facility] SystemVyrtffvefa25-22-0620RDkF-phqqdszcf B and poliovirus vaccineNicole Yuan DO Work Phone: [facility] SystemWbctnbyudf64-42-7194kwznzurhhcy influenzae type b vaccine, HbOC conjugateNicole Yuan DO Work Phone: [facility] SystemFcaigtvkkz39-71-6402zqeimpjudfcd conjugate vaccine, 7 valentNicole Yuan DO Work Phone: [facility] SystemLskbhrpwjf88-26-7017ipdjuxief B vaccine, pediatric or pediatric/adolescent dosageNicole Yuan DO Work Phone: [facility] Payers DatePayer CategoryPayerPolicy [id number] Health Insurance [id number] Cross Blue ShieldBCBS Member Subscriber Plan / Payer (Effective 2023-Present) Name: Marco Gómez MemberID: [id number] Relation to Subscriber: Child Name: ANA M GÓMEZ Dateof : 1983 Address: [address] [place], [place] [address] [address] Payer ID: Not on file Type: Not on file Address: [facility] [id number] [place] [address] [id number]2-4296 Itqi-[id number] Health Insurance [id number] 2.16840.1.005320.3.579.2.19268-72-6846 [id number] 2.16840.1.612128.3.57[id number] 2.840.1.208232.3.57[id number] 2.840.1.704868.3.57[id number] 2.840.1.118318.3.57[id number] 2.16840.1.705664.3.57[id number] 2.840.1.727340.3.57[id number] 2.840.1.777357.3.57[id number] 2.840.1.434486.3.57[id number] 2.16840.1.010270.3.57[id number] 2.16840.1.840548.3.57[id number] 2.16840.1.610935.3.57[id number] 2.16840.1.965806.3.57[id number] 2.840.1.640098.3.57[id number] 2.840.1.355884.3.57[id number] 2.840.1.742713.3.57[id number] 2.840.1.660810.3.57[id number] 2.0.1.681655.3.57[id number] 2.840.1.320450.3.57[id number] 2.0.1.316903.3.57[id number] 2.0.1.280904.3.57[id number] 2.840.1.800064.3.57[id number] 2.0.1.772805.3.57[id number] 2.840.1.940305.3.57[id number] 2.0.1.811067.3.57[id number] 2.840.1.982851.3.579.2.44637-49-2023OuqextfIOV22298130360-37-6998Qovoits [id number] [id number] [id number] 2.16.840.1.527898.3.579.2.531 Social History DateTypeDetailFacilityStart: 09-22-2024 End: 17-39-5321Dqp [facility]-20[facility]2023 End: 09-11-2220Qewthtb smoking statusNever smoked tobacco (finding)[facility] CareTobacco smoking statusNeverWhite Hospital Convenient CareStart: 67-71-8084Lti [facility]: 10-01-2023 End: 87-04-2586Ounqbmh smoking statusEx-smoker (finding)[facility] [place]vueHistory of tobacco useCurrent smokerNOMS HealthcareStart: 79-25-1211Tzfxams use and exposureSmokeless tobacco non-user [facility] HealthcareStart: 09-22-2024 End: 37-26-5778Kjlzger of Social functionNOMS HealthcareStart: 50-56-6303Nus assigned at birthNot on fileNOMS HealthcareTobacco smoking status NHISTobacco smoking consumption unknownNOMS HealthcareSexual OrientationWooster Community Hospital Start: 89-15-4692HqbTxww (finding)[facility] Medical Equipment Procedure CodeEquipment CodeEquipment Original TextEquipment IdentifierDates Arthroscopy, kneeTendon/ligament bone anchor, non-bioabsorbable [id number] FDAStart: 11-06-2019 Functional Status YxoyOcqzsqbelhZyccprUawczydi64-56-4052Rzphtrwufk StatusN/[facility] Beod74-73-0263Fxtsgpkrcs StatusDayton [facility] Hospital 96-48-5410Vkfrqpwllc StatusN/[facility] Clinical Notes 10-18-2021 to 07-19-2025 Note Date & LmaoNpdcHlouudkv94-63-9112 Hospital Discharge instructions Patient Education 07/19/2025 21:50:25 Acute Bronchitis, Adult, Ezuv-qf-Icwt Acute Bronchitis, Adult Acute bronchitis is when air tubes in the lungs (bronchi) suddenly get swollen. The condition can make it hard for you to breathe. In adults, acute bronchitis usually goes away within 2 weeks. A cough caused by bronchitis may last up to 3 weeks. Smoking, allergies, and asthma can make the conditionworse. What are the causes? Germs that cause cold and flu (viruses). The most common cause of this condition is the virus that causes the common cold. Bacteria. Substances that bother (irritate) the lungs, including: ?Smoke from cigarettes and other types of tobacco. ?Dust and pollen. ?Fumes from chemicals, gases, or burned fuel. ?Indoor or outdoor air pollution. What increases the risk? A weak body's defense system. This is also called the immune system. Any condition that affects your lungs and breathing, such as asthma. What are the signs or symptoms? A cough. Coughing up clear, yellow, or green mucus. Making high-pitched whistling sounds when you breathe, most often when you breathe out (wheezing). Runny or stuffy nose. Having too much mucus in your lungs (chest congestion). Shortness of breath. Body aches. A sore throat. How is this treated? Acute bronchitis may go away over time without treatment. Your doctor may tell you to: Drink more fluids. This will help thin your mucus so it is easier to cough up. Use a device that gets medicine into your lungs (inhaler). Use a vaporizer or a humidifier. These are machines that add water to the air. This helps with coughing and poor breathing. Take a medicine that thins mucus and helps clear it from your lungs. Take a medicine that prevents or stops coughing. It is not common to take an antibiotic medicine for this condition. Follow these instructions at home: Take wsfn-mpn-ifgsllo and prescription medicines only as told by your doctor. Use an inhaler, vaporizer, or humidifier as told by your doctor. Take two teaspoons (10 mL) of honey at bedtime. This helps lessen your coughing at night. Drink enough fluid to keep your pee (urine) pale yellow. Do not smoke or use any products that contain nicotine or tobacco. If you need help quitting, ask your doctor. Get a lot of rest. Return to your normal activities when your doctor says that it is safe. Keep all follow-up visits. How is this prevented? Wash your hands often with soap and water for at least 20 seconds. If you cannot use soap and water, use hand outpatient psychiatrist. Avoid contact with people who have cold symptoms. Try not to touch your mouth, nose, or eyes with your hands. Avoid breathing in smoke or chemical fumes. Make sure to get the flu shot every year. Contact a doctor if: Your symptoms do not get better in 2 weeks. You have trouble coughing up the mucus. Your cough keeps you awake at night. You have a fever. Get help right away if: You cough up blood. You have chest pain. You have very bad shortness of breath. You faint or keep feeling like you are going to faint. You have a very bad headache. Your fever or chills get worse. These symptoms may be an emergency. Get help right away. Call your local emergency services (911 int [place] Do not wait to see if the symptoms will go away. Do not drive yourself to the hospital. Summary Acute bronchitis is when air tubes in the lungs (bronchi) suddenly get swollen. In adults, acute bronchitis usually goes away within 2 weeks. Drink more fluids. This will help thin your mucus so it is easier to cough up. Take jckk-egs-eiwufmm and prescription medicines only as told by your doctor. Contact a doctor if your symptoms do not improve after 2 weeks of treatment. This information is not intended to replace advice given to you by your health care provider. Make sure you discuss any questions you have with your health care provider. Document Revised: 02/28/2022 Document Reviewed: 02/28/2022 [employer] Patient Education 2023 [employer]. Follow Up Care 07/19/2025 07:52:00 With:Natacha Pringle FAM, MED Address: When: Unknown [facility] 09-08-2025 NotePatient Education Pulmonary Medicine Acute Bronchitis, Adult Acute bronchitis is when air tubes in the lungs (bronchi) suddenly get swollen. The condition can make it hard for you to breathe. In adults, acute bronchitis usually goes away within 2 weeks. A cough caused by bronchitis may last up to 3 weeks. Smoking, allergies, and asthma can make the conditionworse. What are the causes? Germs that cause cold and flu (viruses). The most common cause of this condition is the virus that causes the common cold. ??? Bacteria. ??? Substances that bother (irritate) the lungs, including: ? Smoke from cigarettes and other types of tobacco. ? Dust and pollen. ? Fumes from chemicals, gases, or burned fuel. ? Indoor or outdoor air pollution. What increases the risk? A weak body's defense system. This is also called the immune system. ??? Any condition that affects your lungs and breathing, such as asthma. What are the signs or symptoms? A cough. ??? Coughing up clear, yellow, or green mucus. ??? Making high-pitched whistling sounds when you breathe, most often when you breathe out (wheezing). ??? Runny or stuffy nose. ??? Having too much mucus in your lungs (chest congestion). ??? Shortness of breath. ??? Body aches. ??? A sore throat. How is this treated? Acute bronchitis may go away over time without treatment. Your doctor may tell you to: ??? Drink more fluids. This will help thin your mucus so it is easier to cough up. ??? Use a device that gets medicine into your lungs (inhaler). ??? Use a vaporizer or a humidifier. These are machines that add water to the air. This helps with coughing and poor breathing. ??? Take a medicine that thins mucus and helps clear it from your lungs. ??? Take a medicine that prevents or stops coughing. It is not common to take an antibiotic medicine for this condition. Follow these instructions at home: ??? Take vchj-yhi-ddsfnmi and prescription medicines only as told by your doctor. ??? Use an inhaler, vaporizer, or humidifier as told by your doctor. ??? Take two teaspoons (10 mL) of honey at bedtime. This helps lessen your coughing at night. ??? Drink enough fluid to keep your pee (urine) pale yellow. ??? Do not smoke or use any products that contain nicotine or tobacco. If you need help quitting, ask your doctor. ??? Get a lot of rest. ??? Return to your normal activities when your doctor says that it is safe. ??? Keep all follow-up visits. How is this prevented? Wash your hands often with soap and water for at least 20 seconds. If you cannot use soap and water, use hand outpatient psychiatrist. ??? Avoid contact with people who have cold symptoms. ??? Try not to touch your mouth, nose, or eyes with your hands. ??? Avoid breathing in smoke or chemical fumes. ??? Make sure to get the flu shot every year. Contact a doctor if: ??? Your symptoms do not get better in 2 weeks. ??? You have trouble coughing up the mucus. ??? Your cough keeps you awake at night. ??? You have a fever. Get help right away if: ??? You cough up blood. ??? You have chest pain. ??? You have very bad shortness of breath. ??? You faint or keep feeling like you are going to faint. ??? You have a very bad headache. ??? Your fever or chills get worse. These symptoms may be an emergency. Get help right away. Call your local emergency services (911 int [place] ??? Do not wait to see if the symptoms will go away. ??? Do not drive yourself to the hospital. Summary ??? Acute bronchitis is when air tubes in the lungs (bronchi) suddenly get swollen. In adults, acute bronchitis usually goes away within 2 weeks. ??? Drink more fluids. This will help thin your mucus so it is easier to cough up. ??? Take ylov-xya-qgpowkc and prescription medicines only as told by your doctor. ??? Contact a doctor if your symptoms do not improve after 2 weeks of treatment. This information is not intended to replace advice given to you by your health care provider. Make sure you discuss any questions you have with your health care provider. Document Revised: 02/28/2022 Document Reviewed: 02/28/2022 Shashank Patient Education ? 2023 [employer].[facility] 03-02-2025 NotePatient Education Mental and Behavioral Health Insomnia Insomnia is a sleep disorder that makes it difficult to fall asleep or stay asleep. Insomnia can cause fatigue, low energy, difficulty concentrating, mood swings, and poor performance at work or school. There are three different ways to classify insomnia: ??? Difficulty falling asleep. ??? Difficulty staying asleep. ??? Waking up too early in the morning. Any type of insomnia can be long-term (chronic) or short-term (acute). Both are common. Short-term insomnia usually lasts for 3 months or less. Chronic insomnia occurs at least three times a week forlonger than 3 months. What are the causes? Insomnia may be caused by another condition, situation, or substance, such as: ??? Having certain mental health conditions, such as anxiety and depression. ??? Using caffeine, alcohol, tobacco, or drugs. ??? Having gastrointestinal conditions, such as gastroesophageal reflux disease (GERD). ??? Having certain medical conditions. These include: ? Asthma. ? Alzheimer's disease. ? Stroke. ? Chronic pain. ? An overactive thyroid gland (hyperthyroidism). ??? Other sleep disorders, such as restless legs syndrome and sleep apnea. ??? Menopause. Sometimes, the cause of insomnia may not be known. What increases the risk? Risk factors for insomnia include: ??? Gender. Females are affected more often than males. ??? Age. Insomnia is more common as people get older. ??? Stress and certain medical and mental health conditions. ??? Lack of exercise. ??? Having an irregular work schedule. This may include working night shifts and traveling between different time zones. What are the signs or symptoms? If you have insomnia, the main symptom is having trouble falling asleep or having trouble staying asleep. This may lead to other symptoms, such as: ??? Feeling tired or having low energy. ??? Feeling nervous about going to sleep. ??? Not feeling rested in the morning. ??? Having trouble concentrating. ??? Feeling irritable, anxious, or depressed. How is this diagnosed? This condition may be diagnosed based on: ??? Your symptoms and medical history. Your health care provider may ask about: ? Your sleep habits. ? Any medical conditions you have. ? Your mental health. ??? A physical exam. How is this treated? Treatment for insomnia depends on the cause. Treatment may focus on treating an underlying condition that is causing the insomnia. Treatment may also include: ??? Medicines to help you sleep. ??? Counseling or therapy. ??? Lifestyle adjustments to help you sleep better. Follow these instructions at home: Eating and drinking ??? Limit or avoid alcohol, caffeinated beverages, and products that contain nicotine and tobacco, especially close to bedtime. These can disrupt your sleep. ??? Do not eat a large meal or eat spicy foods right before bedtime. This can lead to digestive discomfort that can make it hard for you to sleep. Sleep habits ??? Keep a sleep diary to help you and your health care provider figure out what could be causing your insomnia. Write down: ? When you sleep. ? When you wake up during the night. ? How well you sleep and how rested you feel the next day. ? Any side effects of medicines you are taking. ? What you eat and drink. ??? Make your bedroom a dark, comfortable place where it is easy to fall asleep. ? Put up shades or blackout curtains to block light from outside. ? Use a white noise machine to block noise. ? Keep the temperature cool. ??? Limit screen use before bedtime. This includes: ? Not watching TV. ? Not using your smartphone, tablet, or computer. ??? Stick to a routine that includes going to bed and waking up at the same times every day and night. This can help you fall asleep faster. Consider making a quiet activity, such as reading, part ofyour nighttime routine. ??? Try to avoid taking naps during the day so that you sleep better at night. ??? Get out of bed if you are still awake after 15 minutes of trying to sleep. Keep the lights down, but try reading or doing a quiet activity. When you feel sleepy, go back to bed. General instructions ??? Take ghjp-wge-wldpqsd and prescription medicines only as told by your health care provider. ??? Exercise regularly as told by your health care provider. However, avoid exercising in the hoursright before bedtime. ??? Use relaxation techniques to manage stress. Ask your health care provider to suggest some techniques that may work well for you. These may include: ? Breathing exercises. ? Routines to release muscle tension. ? Visualizing peaceful scenes. ??? Make sure that you drive carefully. Do not drive if you feel very sleepy. ??? Keep all follow-up visits. This is important. Contact a health care provider if: ??? You are tired throughout the day. ??? You have trouble in (more content not included)...[facility]03-08-2025 NotePatient Education Infectious Disease Rash, Adult A rash is a breakout of spots or blotches on the skin. It can change the way your skin looks and feels. Many things can cause a rash. The goal of treatment is to stop the itching and keep the rash from spreading. Follow these instructions at home: Medicine Take or apply sroy-doi-knpjwqw and prescription medicines only as told by [...] pharmacy or grocery store. Follow the instructions onthe package. ??? Try putting baking soda paste [...] provider. Document Revised: 08/16/2023 Document Reviewed: 08/16/2023 Elsevier Patient Education ? 2023 [employer] 10-22-2024 Hospital Discharge instructions Patient Education 10/22/2024 11:44:41 Viral Respiratory Infection, Opwm-Pb-Lloo Viral Respiratory Infection A viral respiratory infection [...] at home: Managing pain and congestion Take uruk-yhc-uwezmiy and prescription medicines only as told by your doctor. If you have a sore throat, gargle with salt water. Do this 3 4 times a day or as needed. ?To make salt water, dissolve 1 tsp (3 6 g) of salt in 1 cup (237 mL) of warm water. Make sure thatall the salt dissolves. Use nose drops made [...] cannot use soap and water, use hand outpatient psychiatrist. ?Cover your mouth when you cough. Cover [...] away. Call your local emergency services (911 int [place] Do not wait to see if [...] provider. Document Revised: 02/01/2022 Document Reviewed: 02/01/2022 [employer] Patient Education 2023 [employer]. Follow Up Care 10/22/2024 09:59:32 With:Natacha Pringle FAM, MED Address:Unknown When: Unknown [facility] [id number] NotePatient Education Infectious Disease Viral Respiratory Infection A [...] home: Managing pain and congestion ??? Take fmhu-egz-gycluuf and prescription medicines only as told by [...] cannot use soap and water, use hand outpatient psychiatrist. ? Cover your mouth when you cough. [...] away. Call your local emergency services (911 int [place] ??? Do not wait to see [...] provider. Document Revised: 02/01/2022 Document Reviewed: 02/01/2022 [employer] Patient Education ? 2023 [employer].[facility] 09-22-2024 History of Present illness Narrative* Lorrie Bolden, - 09/22/2024 4:45 PM EST Images from the original note were not included. Chief Complaint Patient presents with Headache Subjective Marco Bridges Gómez, 19 y.o., male Patient states that the headaches have decreased slightly. He is using the whole prescription of imitrex. He states that the imitrex takes about and hour and half to abort the migraine. He has had one migraine a month where he has needed 2 doses. He is having 2-3 days a week with migraine. He feelslike he is getting better sleep with about 8 hours of sleep. He is not having any SE to the meds. He is questioning trying rizatriptan. He is also taking the amitriptyline. The headaches are located in the right buddhism and the pain is described as deep and intense. He hasa throbbing and pressure sensation. He can wake [...] seem to help. 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 - He works at [employer] He works 7p-7a 2-3 days a week. When he gets off he has a hard time sleeping. 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 Past Medical History: Diagnosis Date Depression ([facility]) Past Surgical History: Procedure Laterality [...] migraine without aura and without status migrainosus ([facility]) - amitriptyline (Elavil) 25 MG tablet; 2 po q hs - SUMAtriptan (Imitrex) 20 MG/ACT nasal spray; 1 spray in 1 nostril at onset of migraine may repeatin other nostril in 2 hours if needed [...] will be able to get off of material handler 1st shift. The amitriptyline was helping initially but appears [...] if that works a little bit better. Mg consider adding in rizatriptan pending his course. I am hopeful that this combination will work a little bit better for him. He has tried and failed Nurtec Ubrelvy and Qulipta Plan Trial of Imitrex nasal spray Increase amitriptyline 25 mg 1-1/2-2 at bedtime Try to keep the same [...] to clinic: 2 months documented in this encounterThe Rehabilitation InstituteUqgblhfahw83-29-7261 History of Present illness Narrative* Lorrie Bolden DO - 07/21/2024 11:00 AM EDT Images from the original note were not included. Chief Complaint Patient presents with Headache Subjective Marco Gómez, 18 y.o., male who is being seen in outpatient neurological consultation after request of Natacha Sevilla for headaches. Headache started 3 and a half months ago. Prior to that he would have a headache a couple times a year. He does remember having some growing up and alleve would take care of it. He denies any injury. The headaches are located in the right buddhism and the pain is described as deep and intense. He hasa throbbing and pressure sensation. He can wake [...] Sleep does seem to help. 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. He works 7p-7a 2-3 days a week. When he gets off he has a hard time sleeping. 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 Past Medical History: Diagnosis Date Depression ([facility]) Past Surgical History: Procedure Laterality [...] he has triggered into this headache pattern becauseof his sleep. He works 3rd shift but [...] to clinic: 2 months documented in this encounterThe Rehabilitation [id number] Evaluation + Plan note Extracted from:Title:ED NoteAuthor:Madelin HERNANDEZ, JansenDate:11/05/23 Hand laceration (S61.419A: L aceration without foreign body of unspecified hand, initial encounter) Orders: lidocaine, 100 mg = 10 mL, Injection, SubCutaneous, Once, Stop date 11/05/23 11:20:00 EST, Start date 11/05/23 11:20:00 EST [facility]12-26-2023 Hospital Discharge instructions Patient Education 11/05/2023 11:27:32 Laceration Care, 7-10 ([id number]) Laceration Care A laceration is a cut [...] it as soon as possible. Only take geik-uec-oskbtpv or prescription medicines for pain, discomfort, or [...] worse. Document Released: 10/28/2006 Document Re-Released: 10/10/2009 [facility] Patient Information 2009 [employer] [facility]. Follow Up Care 11/05/2023 10:42:13 With:Natacha Sevilla Address:Unknown When:11/08/2023 11:20:22 Comments:stitches to be removed in 7-10 days [facility]06-24-2023 Evaluation note* Encounter Date Diagnosis Assessment Notes Treatment Notes Treatment Clinical Notes Apr, Sore throat (ICD-10 - J02.9) strep pos, see above. Apr,Strep throat (ICD-10 - J02.0)Pt is to take abx as prescribed. take with food. Informed pt they are contagious for first 24 hrs on medication. Push fluids and rest. Pt denied work note today. Pt is to take otc antipyretic prn forfever and aches. Change toothbrush after 2-3 days. Pt is to be re-evaluated after treatment if sx worsen or don''t improve by pcp. Pt is to call the office with any questions or concerns regarding dxand tx. Pt understood and agreed to treatment plan. [facility] Other 03-12-2023 Hospital Discharge instructions Patient Education 01/20/2023 10:17:12 Sore Throat, Vnkk-pv-Uapz Sore Throat When you have a sore [...] treatment. Follow these instructions at home: Take grpe-bru-htfpfyr medicines only as told by your doctor. [...] and water are not available, use hand outpatient psychiatrist. Contact a doctor if: You have a [...] things can cause a sore throat. Take gwgz-mom-xvncmrg medicines only as told by your doctor. [...] 08/06/2009 Document Revised: 03/30/2019 Document Reviewed: 03/30/2019 [employer] Patient Education 2020 [employer] 01/20/2023 10:17:10 Antibiotic Resistance Antibiotic Resistance Antibiotics [...] 01/18/2004 Document Revised: 11/12/2018 Document Reviewed: 04/01/2017 [employer] Patient Education 2020 [employer]. 01/20/2023 10:17:08 Upper Respiratory Infection, Adult Upper [...] medicines to help relieve symptoms, such as: Pwzb-lov-kywsams cold medicines. Cough suppressants. Coughing is a [...] and other clear broths. General instructions Take rgbr-rhz-qkzdial and prescription medicines only as told by [...] and water are not available, use hand outpatient psychiatrist. ?Avoid touching your mouth, face, eyes, or [...] 04/23/2002 Document Revised: 11/05/2019 Document Reviewed: 06/13/2018 [employer] Patient Education 2020 [employer]. [facility] Care 01-23-2023 Evaluation note* Encounter Date Diagnosis Assessment Notes Treatment Notes Treatment Clinical Notes Nov, Sore throat (ICD-10 - J02.9) Nov,Strep pharyngitis (ICD-10 - J02.0)Strep throat material was printed Drink plenty fluids, get plenty of rest. Take the amoxicillin as prescribed until gone. Off work today and tomorrow. Take Tylenol or Motrin as needed for aches pains or fevers. Follow-up with family physician if no improvement in 2 to 3 days [facility] Other 03-18-2022 Evaluation note* Encounter Date Diagnosis Assessment Notes Treatment Notes Treatment Clinical Notes Jan, Rupture of right tympanic membra ne (ICD-10 - H72.91) Rx sent, use as [...] were discussed with pt while in clinic. Jan,cute otitis media with effusion of both ears (ICD-10 - H65.193) [facility] Other 02-15-2022 NotePROCEDURE: [employer] Signa HDXT 1.5. Sagittal T1, T2, STIR [...] and signed by Tho Salas on 12/26/2021 [facility]* Encounter Date Diagnosis Assessment Notes Treatment Notes Treatment Clinical Notes Dec, Mass of left wrist (ICD-10 - R22 .32) Marco returns today for follow-up of left wrist mass excision. He is now 6 weeks after surgery. His incision is benign. Gentle range of motion is well- tolerated today. He is now complaining of painwhich is similar than prior to surgery. He shows me a spot which appears to be his carpus which is tender dorsally. This is exacerbated with wrist flexion. I do not feel any other soft tissue problemon exam. We have discussed limiting activities for a little bit longer and trying anti-inflammatories. Consider MRI in future if not improved in another 6 weeks. The patient has been involved in our cooperative treatment plan and agrees to move forward with treatment at this time. Dec,Ganglion, left wrist (ICD-10 - M67.432) Dec,Left wrist pain (ICD-10 - M25.532) Dec,ther specified postprocedural states (ICD-10 - Z98.890) Patient [...] for voltarn gel sent into patients pharmacy [facility] Other 12-08-2021 Evaluation note* Encounter Date Diagnosis Assessment Notes Treatment Notes Treatment Clinical Notes Oct, Mass of left wrist (ICD-10 - R22 .32) Marco presents with left wrist mass, likely [...] management have been discussed in detail and non- operative management was given as an option. The [...] wound closure problems and infection were discussed. Valentine- operative risks including infection, bleeding, wound healing problems, [...] poor healing. I have advised against the nursing home use of narcotic pain medication. I have advised to follow all post-operative instructions in order to obtain the best outcome. Informed consent has been verbally affirmed and signed as indicated. The patient has been involved in our cooperative treatment plan and agrees to move forward with treatment at this time. Oct,Ganglion, left wrist (ICD-10 - M67.432) We will proceed with excision of mass Oct,eft wrist pain (ICD-10 - M25.532) Oct,OtherSee orders for this visit as documented in the electronic medical record. [facility] Other Evaluation + Plan note No data available for this section [facility] Evaluation noteNo assessment information available [facility] Work Phone: Evaluation note* Diagnosis Sleep deprivation- Primary Problems related to lack of adequate sleep Intractable chronic migraine without aura and without status migrainosus (CMS/HCC) Shift work sleep disorder Circadian rhythm sleep disorder, shift work type documented in this encounter [facility] HealthcareEvaluation note* Diagnosis Chronic daily headache- Primary Headache Intractable chronic migraine without aura and without status migrainosus (CMS/HCC) Tension headache Shift work sleep disorder Circadian rhythm sleep disorder, shift work type Sleep deprivation Problems related to lack of adequate sleep Inadequate sleep hygiene Other specific disorder of sleep of nonorganic origin documented in this encounter [facility] HealthcareEvaluation note* Diagnosis Intractable chronic migraine without aura and without status migrainosus (CMS/HCC)- Primary Shift work sleep disorder Circadian rhythm sleep disorder, shift work type Sleep deprivation Problems related to lack of adequate sleep documented in this encounter [facility] HealthcareEvaluation note* Diagnosis Intractable chronic migraine without aura and without status migrainosus (CMS/HCC)- Primary Inadequate sleep hygiene Other specific disorder of sleep of nonorganic origin documented in this encounter [facility] HealthcareHistory general Narrative - Reported* Type Description Date Surgical History alexei removal Surgical Historyfatty tumor removed from right side of backSurgical History maniscus [id number] Historymaniscus refastened and tumor removed from [id number] HistoryT&A [facility] [employer] Other Hospital Discharge instructions No data available for this section [facility] Progress note No data available for this section [facility] Summary Purpose Family History [...] section and content) DATE CREATED AUTHOR 02/19/2019 [facility] DATE CREATED AUTHOR AUTHOR'S ORGANIZ ATION 12/19/2021 [facility] DATE CREATED AUTHOR AUTHOR'S ORGANIZ ATION 12/27/2021 [facility] DATE CREATED AUTHOR AUTHOR'S ORGANIZ ATION 04/04/2022 [facility] DATE CREATED AUTHOR AUTHOR'S ORGANIZ ATION 10/15/2023 [facility] DATE CREATED AUTHOR AUTHOR'S ORGANIZ ATION 01/24/2025 [facility] DATE CREATED AUTHOR AUTHOR'S ORGANIZ ATION 04/10/2025 [facility] DATE CREATED AUTHOR AUTHOR'S ORGANIZ ATION 04/17/2025 [facility] DATE CREATED AUTHOR AUTHOR'S ORGANIZ ATION 07/27/2025 [facility] DATE CREATED AUTHOR AUTHOR'S ORGANIZ ATION 09/12/2025 [facility] REASON FOR VISIT (unrecogniz ed section and content) ReasonCommentsHeadacheSpecialtyDiagnoses / ProceduresReferred By ContactReferred To ContactNeurology Diagnoses Migraine, unspecified, not intractable, without status migrainosus (CMS/HCC) Procedures NE OFFICE/OUTPATIENT NEW LOW MDM 30 MINUTES Natacha Sevilla MD [address] [place] [address] Mandeep Ortega MD [address] [place] [address] Referral IDStatusReasonStart DateExpiration DateVisits RequestedVisits [id number] Consult and Treat /[id number] Care Teams (unrecognized sec tion and content) Personnel Name: Natacha Pringle Address: [address] [place] [address]- Telecom: Team MemberRelationshipSpecialtyStart DateEnd Date Unallocated, Noms MD Am[address] [place] [address] PCP - GeneralFamily Medicine01/21/25 Natacha Sevilla MD [address] [place] [address] Referring PhysicianFamily Medicine07/21/24 Lorrie Bolden DO [address] [place] [id number] Referring HnzlowbjdJtpisywng36/12/24 Nolvia Nice NP [address] [place] [address] Nurse PractitionerNeurolog11/24/24Team MemberRelationshipSpecialtyStart DateEnd Date Natacha Sevilla MD [address] [place] [id number] Referring PhysicianFamily Medicine07/21/24 Lorrie Bolden DO [address] [place] [phone] Referring ZucfhvgnxHopylgxcc79/12/24 Personnel Name: Natacha Pringle Address: Address: [address] [place] [id number]- Team Status: Active Member Role Status Dates Rafita March MD Primary Care Provider Active Team Status: Inactive Member Role Status Dates Rafita March MD Primary Care Provider Active Yakov Sanchez DO CHCAttending ProviderActive Goals (unrecognized section and content) Goals may [...] BE BASED ON THE PRIMARY CLINICAL RECORDS. [facility] The Other [facility]. provides no warranty or guarantee of the accuracy or completeness of information in this document.
--- NOTE | 2025-09-16 13:33 | ED.GENADUL1 ---
HPI HPI - General Adult General Chief complaint: Abdominal Pain Stated complaint: ABDOMINAL PAIN Time Seen by Provider: 09/16/25 12:20 Source: patient Mode of arrival: walk-in History of Present Illness HPI narrative: The patient presents to the ER with a recurring history of constipation he mentioned that he took mag citrate a week ago when he had constipation 2 and his got better and then he redeveloped constipation again Denies any chest pain abdominal pain or any other concerns he also denies any nausea vomiting Related Data Home Medications ?Medication ?Instructions ?Recorded ?Confirmed sumatriptan succinate 100 mg tablet 100 mg PO Q2H PRN migraine headache 02/02/25 09/16/25 albuterol sulfate 90 mcg/actuation 2 puff inhalation Q4H PRN 09/16/25 09/16/25 aerosol inhaler shortness of breath or wheezing atogepant 60 mg tablet (Qulipta) 60 mg PO DAILY 09/16/25 09/16/25 Previous Rx's ?Medication ?Instructions ?Recorded bisacodyl 5 mg tablet,delayed 5 mg PO DAILY PRN constipation #10 09/16/25 release (Dulcolax (bisacodyl)) tabs magnesium citrate 296 ml PO ONCE PRN constipation 09/16/25 #296 mL Allergies Allergy/AdvReac Type Severity Reaction Status Date / Time No Known Drug Allergies Allergy Verified 02/02/25 20:08 Opioid HPI Opioid Management Most Recent Opioid Data: Last Pain Scale 10 02/02/25, 20:30 Review of Systems ROS Status of ROS 10 or more systems reviewed and unremarkable except as noted in history and below PFSH PFSH Social History Little interest or pleasure in doing things: not at all Feeling down, depressed, or hopeless: not at all Exam Narrative Exam Narrative: Nurses notes and vital signs reviewed and patient is not hypoxic. General: Well-appearing and in no apparent distress. Skin: Warm, dry, no pallor noted. No rash. Head: Normocephalic, atraumatic. Neck: Supple, non-tender. Eye: Pupils are equal, round and EOMI. No scleral icterus. Ears, Nose, Mouth, and Throat: TM are clear, no nasal mucosal hypertrophy. Oral mucosa is moist, no posterior oropharynx erythema, uvula is mid-line Cardiovascular: Regular Rate and Rhythm without murmur, gallop or rub. Respiratory: No accessory muscle use or respiratory distress. Lungs are clear to auscultation, no wheezing, rales or rhonchi Chest Wall: no tenderness Back: No midline thoracic or lumbar vertebral tenderness. No CVA tenderness Musculoskeletal: normal ROM, no calf or popliteal tenderness, no lower extremity edema/swelling GI: Abdomen is soft, non-distended. Normal bowel sounds. No masses appreciated. No tenderness to palpation. No rebound, guarding, or rigidity noted. Neurological: A&O x4. No cranial nerve dysfunction observed. No truncal ataxia. Moves all extremities. Sensation intact. Psychiatric: Cooperative and interactive. Normal mood and affect. Constitutional Vital Signs, click to edit/add: Last Vital Signs Temp 98.2 F 09/16/25 12:16 Pulse 72 09/16/25 12:16 Resp 18 09/16/25 12:16 BP 162/91 H 09/16/25 12:16 Pulse Ox 100 09/16/25 12:16 O2 Del Method Room Air 09/16/25 12:16 Course Vital Signs Vital signs: Vital Signs Temperature 98.2 F 09/16/25 12:16 Pulse Rate 72 09/16/25 12:16 Respiratory Rate 18 09/16/25 12:16 Blood Pressure 162/91 H 09/16/25 12:16 Pulse Oximetry 100 09/16/25 12:16 Oxygen Delivery Method Room Air 09/16/25 12:16 Temperature 98.2 F 09/16/25 12:16 Pulse Rate 72 09/16/25 12:16 Respiratory Rate 18 09/16/25 12:16 Blood Pressure 162/91 H 09/16/25 12:16 Pulse Oximetry 100 09/16/25 12:16 Oxygen Delivery Method Room Air 09/16/25 12:16 Medical Decision Making MDM Narrative Medical decision making narrative: X-ray of the abdomen showed that the patient have constipation but there is no suspicion at the moment of impaction Patient will take magnesium citrate again in addition to Dulcolax for a few days after that and he was referred to the brickmason helper as outpatient The patient instructed about the alarming symptoms that would bring him back to the ER Also instructed on hydration and increasing fiber intake The patient to follow-up with the primary care within 2 to 3 days and to come back to the ER in case of any worsening of the current symptoms or any new symptoms or concerns Discharge Plan Discharge Chief Complaint: Abdominal Pain Clinical Impression: Constipation Patient Disposition: Home, Self-Care Time of Disposition Decision: 13:33 Condition: Good Prescriptions / Home Meds: New magnesium citrate Solution 296 ml PO ONCE PRN (Reason: constipation) Qty: 296 0RF bisacodyl [Dulcolax (bisacodyl)] 5 mg tablet,delayed release (DR/EC) 5 mg PO DAILY PRN (Reason: constipation) Qty: 10 0RF No Action albuterol sulfate 90 mcg/actuation HFA aerosol inhaler 2 puff INHALATION Q4H PRN (Reason: shortness of breath or wheezing) Qulipta 60 mg tablet 60 mg PO DAILY sumatriptan succinate 100 mg tablet 100 mg PO Q2H PRN (Reason: migraine headache) Print Language: Burkinan Instructions: Constipation (ED) Referrals: TRACY ELLIS [Physician, Gastroenterology] - 1 week Discharge Date/Time: 09/16/25 13:50
== END 2025-09-16 13:50 | disposition home or self-care (01) ==
PROVIDERS: Emergency Provider Emergency Medicine; PCP Nurse Practitioner
DX: K59.00 Constipation, unspecified (principal)
CPT/HCPCS: 74018; 99283